=== PATIENT | male | born 1980 | race Caucasian/White ===

== ENCOUNTER 2021-08-30 09:08 | Outpatient (CLI) | payer OTHER, SELFPAY ==
--- NOTE | 2021-08-30 11:15 | NEURO_ITS ---
Impression: # Complains of paresthesia of lower extremities. # Normal nerve conduction study including motor and sensory nerves and F- waves. # Normal needle/EMG exam. # Clinical correlation recommended. Nerve Conduction Studies Anti Sensory Summary Table Stim Site NR Peak (ms) P-T Amp (?V) Site1 Site2 Delta-P (ms) Dist (cm) Chip (m/s) Left Sup Fibular Anti Sensory (Ant Lat Mall) 14 cm 3.8 13.5 14 cm Ant Lat Mall 3.8 16.0 42 Right Sup Fibular Anti Sensory (Ant Lat Mall) 14 cm 3.3 20.8 14 cm Ant Lat Mall 3.3 16.0 48 Left Sural Anti Sensory (Lat Mall) Calf 3.7 19.6 Calf Lat Mall 3.7 16.0 43 Right Sural Anti Sensory (Lat Mall) Calf 3.7 18.4 Calf Lat Mall 3.7 16.0 43 Motor Summary Table Stim Site NR Onset (ms) O-P Amp (mV) Site1 Site2 Delta-0 (ms) Dist (cm) Chip (m/s) Right Lateral Plantar Motor (ADM) Med Mall 4.5 4.8 Left Lateral Plantar Motor (AHB) Med Mall 4.7 5.5 Left Peroneal Motor (Vastus Med) Ankle 5.2 1.7 Popit Ankle 7.3 36.0 49 Popit 12.5 5.1 Right Peroneal Motor (Vastus Med) Ankle 4.7 5.2 Popit Ankle 7.6 37.0 49 Popit 12.3 4.0 Left Tibial Motor (Abd Whittington Brev) Ankle 4.2 5.8 Knee Ankle 8.5 40.0 47 Knee 12.7 5.4 Right Tibial Motor (Abd [place]itting[place] Brev) Ankle 4.2 4.7 Knee Ankle 9.5 41.0 43 Knee 13.7 5.5 F Wave Studies NR F-Lat (ms) L-R F-Lat (ms) Left Peroneal (Mrkrs) (EDB) 51.29 0.27 Right Peroneal (Mrkrs) (EDB) 51.56 0.27 Left Tibial (Mrkrs) (Abd Hallucis) 51.56 0.94 Right Tibial (Mrkrs) (Abd Hallucis) 52.50 0.94 EMG Side Muscle Nerve Root Ins Act Fibs Amp Dur Recrt Comment Right AntTibialis Dp Br Fibular L4-5 Nml Nml Nml Nml Nml Right Gastroc Tibial S1-2 Nml Nml Nml Nml Nml Right Fibularis Long Sup Br Fibular L5-S1 Nml Nml Nml Nml Nml Right Flex Dig Long Tibial L5-S2 Nml Nml Nml Nml Nml Right Ext Dig Brev Dp Br Fibular L5, S1 Nml Nml Nml Nml Nml Left AntTibialis Dp Br Fibular L4-5 Nml Nml Nml Nml Nml Left Gastroc Tibial S1-2 Nml Nml Nml Nml Nml Left Fibularis Long Sup Br Fibular L5-S1 Nml Nml Nml Nml Nml Left Flex Dig Long Tibial L5-S2 Nml Nml Nml Nml Nml Left Ext Dig Brev Dp Br Fibular L5, S1 Nml Nml Nml Nml Nml MTDD
== END 2021-08-30 09:09 | disposition home or self-care (01) ==
LOC: ANHNEURO 09:12
PROVIDERS: PCP Family Medicine; Visit Provider Family Medicine
DX: R20.2 Paresthesia of skin (principal)
CPT/HCPCS: 95886; 95911

== ENCOUNTER 2022-06-01 01:31 | Day surgery (SDC) | payer OTHER, SELFPAY ==
[2022-05-23 11:42] VITALS: BMI 29.5
[2022-06-01 12:19] VITALS: BP 161/107; PULSE 83; RESP 18; TEMP 36.2; O2SAT 100
[2022-06-01] MEDS: LACTATED RINGERS 1,000 ML 150 ML IV CONT (12:29)
--- NOTE | 2022-06-01 12:42 | PM.HPGS ---
History of Present Illness History of Present Illness Consent: Risks, benefits, and alternatives have been discussed and questions answered. Patient agrees to proceed with procedure. Chief complaint: epigastric pain Narrative: Kaleb Evans Jr. is a 41 year old male who has been dealing with a hiatal hernia for the past 4 years.? Originally this was diagnosed when he was having severe chest pain.? He had a CT scan at that time and also is investigated by Cardiology who found no cardiac problems.? Now his main symptom is that after meal he gets very uncomfortable he feels full easily and feels as though he is going to vomit.? He does not have dysphagia.? He has not lost weight in fact over the past 2 years has gained about 30 lb.? Review of Systems Review of Systems: All systems reviewed & are unremarkable except as noted in HPI and below PMFSH Surgical History Surgical History Hx of appendectomy Social History Social History Smoking status: Former smoker Tobacco type: cigarettes Alcohol intake: current Alcohol use details: 2-3 drinks monthly Substance use: never Substance use type: does not use Living arrangements: with family Spiritual care concerns: No Meds Home Medications and Allergies Home Medications Medication Instructions Recorded Confirmed Type No Home Medications 05/23/22 05/23/22 History Allergies Allergy/AdvReac Type Severity Reaction Status Date / Time aspirin Allergy Unknown Unknown Verified 06/01/22 12:18 Vital Signs Vital Signs - 24 hr 06/01/22 12:19 Temperature 36.2 C L Pulse Rate 83 Respiratory Rate 18 Blood Pressure 161/107 H Pulse Oximetry 100 Oxygen Delivery Room Air Exam Const: General: alert Orientation/consciousness: patient oriented x3 Resp: Auscultation: clear to auscultation bilaterally Cardio: Rhythm: regular rhythm GI: GI Palp: Yes Soft to palpation and No Tenderness to palpation present (GI) Neuro: General: patient oriented x3 Assessment and Plan Assessment and plan (1) GERD (gastroesophageal reflux disease): Code(s): K21.9 - Gastro-esophageal reflux disease without esophagitis Status: Acute Assessment and Plan: EGD with possible biopsy or dilatation or cautery.
--- NOTE | 2022-06-01 13:07 | SUR.PREOP ---
DR COFFEY MADE AWARE OF PT'S BLOOD PRESSURE 161/107, PT NERVOUS TO BE IN HOSPITAL, NO NEW ORDERS RECEIVED, PT RESTING ON STRETCHER WITH SPOUSE AT BEDSIDE.
--- NOTE | 2022-06-01 13:11 | WPDANESEPPF ---
Anes - Initial Pre Proc Eval Procedure: Operation Date: 06/01/22 13:30 Proposed Procedures p Esophagogastroduodenoscopy - Jerod Richey MD Date/Time: 06/01/22 13:11 Surgeon: Jerod Richey MD Pre Op Diagnosis: epigastric pain Patient Data Age: 41 Gender: M Height: 1.7 m Weight: 83.7 kg Last Vital Signs Temp 97.2 F L 06/01/22 12:19 Pulse 83 06/01/22 12:19 Resp 18 06/01/22 12:19 BP 161/107 H 06/01/22 12:19 Pulse Ox 100 06/01/22 12:19 O2 Del Method Room Air 06/01/22 12:19 Allergies Allergy/AdvReac Type Severity Reaction Status Date / Time aspirin Allergy Unknown Unknown Verified 06/01/22 12:18 Home Medications Medication Instructions Recorded Confirmed Type No Home Medications 05/23/22 05/23/22 History Patient hx anesthesia problems: none Family hx anesthesia problems: none Results Review: All pre-operative results and documents have been reviewed as part of the pre-operative evaluation. [facility] Surgical History Surgical History Hx of appendectomy Social History Social History Smoking status: Former smoker Tobacco type: cigarettes Alcohol intake: current Alcohol use details: 2-3 drinks monthly Substance use: never Substance use type: does not use Living arrangements: with family Spiritual care concerns: No Anes - Eval Final PreProcedure Day of Procedure 06/01/22 13:11 Patient weight: normal Heart: regular rate and rhythm Lungs: clear to auscultation Airway: Mallampati scale class II Neurological: alert and oriented Last oral intake: >/= 8 hours ASA classification: II Emergent: no Anesthetic plan: proceed Anesthesia type and monitoring: general GIVS and standard monitoring Results Review: All pre-operative results and documents have been reviewed as part of the pre-operative evaluation. Informed Consent: The patient's anesthetic plan and its attendant risks and benefits were discussed with the patient/family/POA. Questions were solicited and answers provided to the satisfaction of the patient/family/POA.
[2022-06-01 13:29] VITALS: BP 137/96; PULSE 81; RESP 16; O2SAT 98
[2022-06-01 13:39] VITALS: BP 135/88; PULSE 74; RESP 14; O2SAT 97
[2022-06-01 13:43] VITALS: BP 146/100; PULSE 71; RESP 14; O2SAT 98
== END 2022-06-01 13:47 | disposition home or self-care (01) ==
PROVIDERS: PCP Family Medicine; Visit Provider Internal Medicine Gastroenterology
PROC: 0DJ08ZZ Inspection of Upper Intestinal Tract, Via Natural or Artificial Opening Endoscopic (ICD-10-PCS; CPT 43235; principal; 2022-06-01 13:30)
DX: K21.9 Gastro-esophageal reflux disease without esophagitis (principal); Z87.891 Personal history of nicotine dependence
CPT/HCPCS: 43239; 87081; J2704; J7120

== ENCOUNTER 2023-08-08 06:20 | Observation (INO) | payer OTHER, SELFPAY ==
[2023-08-08] VITALS (46 sets, daily range): BP systolic 132–209; BP diastolic 20–129; PULSE 58–93; RESP 11–27; TEMP 35.8–37.6; O2SAT 93–100; BMI 29.3
--- NOTE | 2023-08-08 | ECHO_ITS ---
Patient Info Name: Kaleb Evans Age: 42 years : 1980 Gender: Male Ht: 68 in Wt: 185 lbs BSA: 2.03 m2 HR: 87 bpm BP: 157 / 118 mmHg Heart Rhythm: Sinus Rhythm Technical Quality: Fair Exam Date: 08/08/2023 1:43 PM Exam Location: Echo Lab Patient Status: Outpatient Admit Date: 08/08/2023 Staff Ordering Physician: Delphine Mota MD (daysi/melissa) Historic Interpreter: Sana Espinal RDCS Attending Provider: Rubin London MD Referring Physician: Nakul ARANA; Exam Type: CA echo dop color flow w con Study Info Indications - NSTEMI Complete two-dimensional, color flow and Doppler transthoracic echocardiogram is performed with contrast to opacify the left ventricle and to improve the deliniation of the left ventricle endocardial borders. Contrast/Agitated Saline Contrast/Ag. Saline: Definity Amount: 2.00 ml Administered By: Sana Espinal RDCS Existing IV Access: Yes IV Access Condition: patent with no signs of infiltration Summary 1. Left ventricular chamber dimension is normal. 2. There is mildly increased left ventricular wall thickness. 3. Left ventricular systolic function is normal, estimated at 50-55%. 4. The mid anterolateral wall is hypokinetic. 5. The left ventricular diastolic function is grade I diastolic dysfunction. 6. Right ventricular systolic function is normal. 7. No significant valvular disease. Left Ventricle The mid anterolateral wall is hypokinetic. Left ventricular chamber dimension is normal. Left ventricular systolic function is normal, estimated at 50-55%. There is mildly increased left ventricular wall thickness. The left ventricular diastolic function is grade I diastolic dysfunction. Right Ventricle Right ventricular chamber dimension is normal. Right ventricular systolic function is normal. Left Atria Left atrial chamber dimension is normal. Right Atria Right atrial chamber dimension is normal. Atrial Septum Intact interatrial septum visualized by color flow imaging. Aortic Valve The aortic valve is probable trileaflet. There is no aortic valve stenosis. There is no aortic valve regurgitation. There is mild aortic valve calcification. Pulmonic Valve The pulmonic valve is not well visualized. Mitral Valve There is trace mitral valve regurgitation. Tricuspid Valve There is trace tricuspid valve regurgitation. Pericardium/Pleural The pericardium appears epicardial fat pad. There is no pericardial effusion. Inferior Vena Cava Normal inferior vena cava with >50% collapse upon inspiration consistent with normal right atrial pressure, 3 mmHg. Aorta The aortic root size at the sinus of Valsalva is normal. Left Ventricular Outflow Tract Name Value Normal LVOT 2D LVOT Diameter 2.13 cm LVOT Doppler LVOT Peak Gradient 3 mmHg LVOT Mean Gradient 2 mmHg LVOT VTI 17.35 cm LVOT VTI/AV VTI Ratio 0.89 LVOT Stroke Volume 61.84 ml LVOT CO 4.11 l/min LVOT CI 2.03 L/min/m2 Pulmonic Valve
--- NOTE | ~2023-08-08 | XR_ITS ---
Clinical Indication: Chest pain PA and lateral views of the chest: Comparison: 08/21/2017 Findings: The lungs are clear, without evidence of focal consolidation or pleural effusion. Cardiome diastinal silhouette is within normal limits. Bones and soft tissues are unremarkable. Impression: Normal chest. Reviewed, dictated and finalized at location . Impression: Normal chest.
--- NOTE | 2023-08-08 06:37 | ECG_ITS ---
SEE SCANNED COPY FOR CONFIRMED REPORT. MTDD
[2023-08-08] MEDS: NITROGLYCERIN SL 0.4 MG TABLET SUBLINGUAL ×4 (06:42→15:32)
[2023-08-08 06:59] LABS: Basophils Absolute Auto 0.1 K/mm3 (0.0-0.1); Basophils Percent Auto 0.6 % (0.2-1.2); Eosinophils Absolute Auto 0.2 K/mm3 (0-0.3); Eosinophils Percent Auto 2.1 % (0-4.4); Hematocrit 44.5 % (42.0-52.0); Hemoglobin 15.5 g/dL (14.0-18.0); Immature Granulocyte Absolute 0.08 K/mm3 (0.00-0.031); Immature Granulocyte Percent A 0.8 % (0-0.5); Lymphocytes Percent Auto 19.1 % (18.3-44.2); Mean Corpuscular HGB Conc 34.8 g/dl (32-36); Mean Corpuscular Hemoglobin 27.2 pg (26-34); Mean Corpuscular Volume 78.2 fl (80-100); Mean Platelet Volume 9.8 fl (7.4-10.4); Monocytes Percent Auto 9.6 % (2.6-8.5); Neutrophils Absolute Auto 6.7 K/mm3 (1.3-6.7); Neutrophils Percent Auto 67.8 % (45.5-73.1); Platelet Count Result 287 k/mm3 (150-375); Red Blood Count 5.69 M/mm3 (4.6-6.20); Red Cell Distribution Width 12.7 % (11.5-14.5)
[2023-08-08 07:11] LABS: Alanine Aminotransferase 36 U/L (6-50); Albumin Level 4.8 g/dL (3.5-5.1); Alkaline Phosphatase 136 U/L (38-126); Anion Gap 8 mmol/L (4-12); Aspartate Amino Transferase 30 U/L (17-59); Bilirubin,Total 0.7 mg/dL (0.2-1.3); Blood Urea Nitrogen 9 mg/dL (9-20); Calcium 9.7 mg/dL (8.4-10.2); Carbon Dioxide 26 mmol/L (22-30); Chloride 99 mmol/L (98-107); Estimated CRCL calculation 112 ml/min; Estimated Glomerular Filt Rate > 60; Glucose 115 mg/dL (65-110); Lipase 111 U/L (23-300); Potassium 3.4 mmol/L (3.4-5.0); Sodium 133 mmol/L (137-145)
--- NOTE | 2023-08-08 07:12 | ECG_ITS ---
SEE SCANNED COPY FOR CONFIRMED REPORT. MTDD
--- NOTE | 2023-08-08 07:12 | ECG_ITS ---
SEE SCANNED COPY FOR CONFIRMED REPORT. MTDD
--- NOTE | 2023-08-08 07:13 | ECG_ITS ---
SEE SCANNED COPY FOR CONFIRMED REPORT MTDD
--- NOTE | 2023-08-08 07:17 | ED.CHESTPAIN ---
HPI - Chest Pain General Chief Complaint: Chest Pain Stated Complaint: bilateral arm pain, chest pain Time Seen by Provider: 08/08/23 07:05 History of Present Illness HPI narrative: patient is a 42-year-old male who presents ER with chest pain. Pressure in the center of his chest. Began at 5:30 a.m.. It is radiating down both arms and makes him feel numb and heavy. He has had similar some chest discomfort over the last 2 days. Reports increased stress as his recently from cancer 07/20/2023. Patient has no family history of heart disease or personal review disease history. He reports he is otherwise healthy other than having of a blood pressure. Denies illicit drug use. Related Data Home Medications Medication Instructions Recorded Confirmed No Home Medications 05/23/22 08/08/23 Allergies Allergy/AdvReac Type Severity Reaction Status Date / Time aspirin Allergy Unknown Unknown Verified 08/08/23 12:54 Review of Systems Review of Systems: All systems reviewed & are unremarkable except as noted in HPI and below Constitutional: Constitutional: Reports no additional constitutional complaints ENT: Reports system reviewed and no additional complaints, except as documented Cardiovascular: Cardiovascular: Reports chest pain, Denies rapid heart rate and Reports radiating jaw, neck or arm pain Respiratory: Respiratory: Reports no additional respiratory complaints Gastrointestinal: Gastrointestinal: Reports no additional gastrointestinal complaints Musculoskeletal: Musculoskeletal: Reports no additional musculoskeletal complaints [facility] Past Medical History Medical History (Updated 08/08/23 @ 18:08 by Magdaleno Stinson MD) Hypertension Surgical History Surgical History Hx of appendectomy Family History Family History Sibling Diabetes mellitus Sibling Diabetes mellitus Mother Hypertension Father Hypertension Social History Social History Smoking packs per day: 0.5 Smoking cigarettes per day: 10.0 Years smoked: 15 Smoking pack-years: 7.50 Smoking status: Former smoker Tobacco type: cigarettes Smoking end date: 04/08/15 Alcohol intake: current Drinks per week: 4 Alcohol use details: 2-3 drinks monthly Substance use: current Substance use type: marijuana Other substance usage details: Rarely Do You Feel Safe in your Home?: Yes Lack of Transportation: No Lack of Food: Never True Current Housing: I Have Housing Concerned About Future Housing: No Difficulty Paying Gas/Electric Bills: No Difficulty Paying for Meds: No Currently Unemployed: No Education: Decline to Answer Difficulty w/ Childcare or Family Care: No Living arrangements: with family Spiritual care concerns: No Exam Narrative: GENERAL: Well-appearing, well-nourished, and in no acute distress. HEAD: Normocephalic, atraumatic. ENT: Mucous membranes moist. NECK: Supple. CHEST: Clear to auscultation. No respiratory distress. HEART: Regular rate and rhythm. Normal peripheral pulses. ABDOMEN: Soft, nontender, nondistended. EXTREMITIES: Normal range of motion. No edema. SKIN: Warm, dry, no rash. NEURO: Alert and oriented x3. PSYCH: Normal mood and affect. Course Course Emergency Course: EKG with significant ST depression in the inferior leads as well as lateral leads. Multiple EKGs performed including a right-sided EKG. I have discussed the EKGs and patient presentation with Dr. Mota who has reviewed the EKGs. It is felt patient will need intervention but that this is not a ST elevation NV but weathered non ST elevation NV. It is also possible patient could have stress induced cardiomyopathy given recent life changes. Patient will be started on heparin and given aspirin. Vital Signs Vital signs: Vital
[2023-08-08] MEDS: ASPIRIN 81 MG CHEWABLE TABLET 324 MG PO (07:24)
--- NOTE | 2023-08-08 07:25 | PC.NURSE ---
Pt reports he was told when he was a kid that he had an allergy to aspirin. Pt is unsure of any reaction. MD Stinson discussed this with patient, and per MD Stinson, need to give aspirin. Pt okay with taking it, administered per JUN. Pt has call light in reach, instructed to let RN know immediately of any possible adverse reactions.
[2023-08-08 07:26] LABS: Partial Thromboplastin Time 32.5 Seconds (22.3-36.8)
[2023-08-08 07:28] LABS: Troponin I 0.117 ng/mL (0.000-0.034)
[2023-08-08 07:41] LABS: INR 1.1; Prothrombin Time 14.3 Seconds (11.1-14.7)
[2023-08-08] MEDS: HEPARIN SODIUM 5,000 UNITS/ML VIAL 4000 UNITS IV PUSH (08:13)
[2023-08-08] MEDS: HEPARIN SOD/D5W 100 UNITS/ML 25,000 UNITS/250 ML BAG 9 UNITS IV CONT (08:13)
[2023-08-08 09:11] LABS: Cholesterol 191 mg/dL (0-200); HDL Direct 36 mg/dL; Triglycerides 131 mg/dL (<150)
[2023-08-08 09:22] LABS: LDL Cholesterol Direct 125 mg/dL
--- NOTE | 2023-08-08 09:40 | ADMGEN ---
This patient, Kaleb Evans Jr., was admitted to IMU Room 210-01. Patient/family oriented to hospital policies and general routines including ID bracelet, bed and alarms, visiting hours, pain management, procedures, bathroom and other care routines, personal items, smoking policy, room service/diet, and visiting hours. Information on how to activate the Rapid Response Team has been discussed. Patient/Family are encouraged to report perceived risks to care and to ask questions if they do not understand what they are told or what they should do.
[2023-08-08 09:42] LABS: Thyroid Stimulating Hormone 0.784 uIU/mL (0.465-4.680)
[2023-08-08 09:45] LABS: Hemoglobin A1C 5.2 % (<5.7)
--- NOTE | 2023-08-08 10:01 | PM.CNCAR ---
Assessment and Plan Assessment and plan (1) NSTEMI (non-ST elevated myocardial infarction): Code(s): I21.4 - Non-ST elevation (NSTEMI) myocardial infarction Status: Acute Assessment and Plan: Given chest pain, elevated troponin, EKG findings, will treat as NSTEMI. Patient loaded with ASA in the ED and started on Heparin drip. Recommend cardiac catheterization. Discussed the procedure with the patient, including indication for procedure, procedure details, risks vs benefits, alternative management options, etc. Patient agreeable to proceed. Will plan for cardiac catheterization today. Keep patient NPO. Will start high-intensity statin. Check lipid panel, Hgb A1c, TSH level. Obtain echocardiogram. Further recommendations and plan pending results of the above workup. (2) GERD (gastroesophageal reflux disease): Code(s): K21.9 - Gastro-esophageal reflux disease without esophagitis Status: Acute Assessment and Plan: Not on any medications. Plan Recommendations and plan discussed with Hospitalist. History of Present Illness History of Present Illness Consult date/time: 08/08/23 10:01 Requesting physician: Magdaleno Stinson MD Consult reason: chest pain and Other Reason For Visit: NSTEMI Narrative: We are consulted for NSTEMI. This is a 42 year old male with former tobacco use (quit 7-8 years ago) and nonerosive reflux disease per EGD 05/2022 who presented with chest pain. Chest pain is diffuse across his chest, first began 5/1 AM around 6AM. Radiated to both arms. Lasted for a bit (cannot remember exactly how long) and then resolved. Did not recur until this morning. [place] more severe this morning, therefore, came to ER for further evaluation. On presentation, blood pressure 209/129mmHg. EKGs with sinus rhythm, incomplete right bundle branch block, ST depressions in the inferolateral leads. No STEMI. Patient given NTG with improvement in his chest pain and his blood pressure. Initial troponin is 0.117. CXR normal. Patient has ASA allergy listed on his chart. When asked about the allergy, patient states he was told as a kid to not take it but does not recall having any true allergies to it. He isn't sure why they told him to not take it as a kid. Patient was given ASA 324mg x 1 in the ED, and has tolerated it well thus far. Started on Heparin drip. Patient states he has not smoked in 7-8 years, and when he did smoke, it was only socially. Smoked for total of 10 years. Patient recently lost his from cancer. Review of Systems Review of Systems: All systems reviewed & are unremarkable except as noted in HPI and below (HPI) [facility] Surgical History Surgical History Hx of appendectomy Family History Family History Sibling Diabetes mellitus Sibling Diabetes mellitus Mother Hypertension Father Hypertension Social History Social History Smoking packs per day: 0.5 Smoking cigarettes per day: 10.0 Years smoked: 15 Smoking pack-years: 7.50 Smoking status: Former smoker Tobacco type: cigarettes Smoking end date: 04/08/15 Alcohol intake: current Drinks per week: 4 Alcohol use details: 2-3 drinks monthly Substance use: current Substance use type: marijuana Other substance usage details: Rarely Do You Feel Safe in your Home?: Yes Lack of Transportation: No Lack of Food: Never True Current Housing: I Have Housing Concerned About Future Housing: No Difficulty Paying Gas/Electric Bills: No Difficulty Paying for Meds: No Currently Unemployed: No Education: Decline to Answer Difficulty w/ Childcare or Family Care: No Living arrangements: with family Spiritual care concerns: No Meds Home Medications and Allergies Home Medications Medication Instructions Recorded Confirmed Type No Home Medicat
--- NOTE | 2023-08-08 11:33 | PM.IMHP ---
H&P: HPI History of Present Illness Date/Time: 08/08/23 11:33 Chief Complaint: midsternal chest pain Narrative: patient is a 42-year-old male former tobacco user and history of gastric reflux presented to hospital with chest pain. Chest pain is diffuse in nature radiating to both arms and has resolved by the time she came to the emergency room patient was also noted to have a high blood pressure in the emergency room of 200/180. EKG showed ST-T changes in inferior lead. The patient was given aspirin cardiology was consulted. Patient has no previous history of any coronary disease recently lost his from cancer patient has not smoked for more than 8 years. No sore throat nausea vomiting diarrhea hematemesis hemoptysis or dizziness Review of Systems Review of Systems: No fevers chills nausea vomiting. No double vision no blurry vision. No difficulty hearing or sinus complaints. No chest pain shortness of breath fever palpitation dizziness ankle swelling. No coughing wheezing chills. No nausea constipation diarrhea abdominal pain reflux. No urgency frequency of urination. No hematuria. No skin rash eczema. No anxiety depression difficulty sleeping. No bleeding gums enlarged glands. No muscle ache back pain joint stiffness. No loss of strength numbness headache tremor or loss of memory. [facility] Surgical History Surgical History Hx of appendectomy Family History Family History Sibling Diabetes mellitus Sibling Diabetes mellitus Mother Hypertension Father Hypertension Social History Social History Smoking packs per day: 0.5 Smoking cigarettes per day: 10.0 Years smoked: 15 Smoking pack-years: 7.50 Smoking status: Former smoker Tobacco type: cigarettes Smoking end date: 04/08/15 Alcohol intake: current Drinks per week: 4 Alcohol use details: 2-3 drinks monthly Substance use: current Substance use type: marijuana Other substance usage details: Rarely Do You Feel Safe in your Home?: Yes Lack of Transportation: No Lack of Food: Never True Current Housing: I Have Housing Concerned About Future Housing: No Difficulty Paying Gas/Electric Bills: No Difficulty Paying for Meds: No Currently Unemployed: No Education: Decline to Answer Difficulty w/ Childcare or Family Care: No Living arrangements: with family Spiritual care concerns: No Meds Home Medications and Allergies Home Medications Medication Instructions Recorded Confirmed Type No Home Medications 05/23/22 05/23/22 History Allergies Allergy/AdvReac Type Severity Reaction Status Date / Time aspirin Allergy Unknown Unknown Verified 06/01/22 12:18 Vital Signs Vital Signs - 24 hr 08/08/23 06:42 08/08/23 06:48 08/08/23 06:30 Temperature Pulse Rate 82 71 91 Respiratory Rate 18 18 Blood Pressure 189/20 H 153/114 H Pulse Oximetry 100 97 Oxygen Delivery 08/08/23 06:30 08/08/23 06:30 08/08/23 06:53 Temperature Pulse Rate 89 76 Respiratory Rate 19 18 Blood Pressure 209/129 H 138/104 H Pulse Oximetry 100 97 95 Oxygen Delivery Room Air 08/08/23 06:59 08/08/23 07:02 08/08/23 07:15 Temperature Pulse Rate 82 66 80 Respiratory Rate 27 H 14 16 Blood Pressure 132/97 H Pulse Oximetry 93 95 98 Oxygen Delivery 08/08/23 07:38 08/08/23 07:41 08/08/23 07:45 Temperature Pulse Rate 81 75 Respiratory Rate 17 15 Blood Pressure 143/102 H Pulse Oximetry 95 97 99 Oxygen Delivery 08/08/23 08:40 08/08/23 08:45 08/08/23 09:00 Temperature Pulse Rate 83 72 72 Respiratory Rate 25 H 14 19 Blood Pressure 136/105 H Pulse Oximetry 100 98 99 Oxygen Delivery 08/08/23 09:34 Temperature 36.2 C L Pulse Rate 82 Respiratory Rate 16 Blood Pressure 172/110 H Puls
--- NOTE | 2023-08-08 12:48 | WPDMODSED ---
Moderate Sedation Note-Pt Data Patient Data Diagnosis: NSTEMI Present Complaint: NSTEMI Procedure to be performed/Plan: Coronary angiography, left heart cath, +/- PCI Allergies Allergy/AdvReac Type Severity Reaction Status Date / Time aspirin Allergy Unknown Unknown Verified 06/01/22 12:18 Home Medications Medication Instructions Recorded Confirmed Type No Home Medications 05/23/22 05/23/22 History Current Medications: Active Medications Aspirin (Aspirin 81 Mg Enteric Tablet) 81 mg PO QAM COUNTS INCLUDE 234 BEDS AT THE [facility] Atorvastatin Calcium (Atorvastatin 40 Mg Tablet) 80 mg PO DAILY COUNTS INCLUDE 234 BEDS AT THE [facility] Sodium Chloride (Normal Saline Iv) 1,000 mls @ 125 mls/hr IV CONT .Q8H ONE Stop: 08/08/23 20:44 Losartan Potassium (Losartan Potassium 25 Mg Tablet) 25 mg PO DAILY COUNTS INCLUDE 234 BEDS AT THE [facility] Metoprolol Succinate (Metoprolol Succinate Ext Rel 50 Mg Tabcr) 50 mg PO QAM COUNTS INCLUDE 234 BEDS AT THE [facility] Morphine Sulfate (Morphine Sulfate (*Crx) 2 Mg/Ml Inj) 2 mg IV PUSH Q2H PRN PRN Reason: Pain Rated 7-10 Nitroglycerin (Nitroglycerin Sl 0.4 Mg Tablet) 0.4 mg SUBLINGUAL Q5MIN PRN PRN Reason: Chest Pain Last Admin: 08/08/23 06:53 Dose: 0.4 mg Nitroglycerin (Nitroglycerin Sl 0.4 Mg Tablet) 0.4 mg SUBLINGUAL Q5MIN PRN PRN Reason: Chest Pain Ondansetron HCl (Ondansetron Inj 4 Mg/2 Ml Vial) 4 mg IV PUSH Q4H PRN PRN Reason: Nausea Perflutren Lipid Microsphere (Perflutren Lipid Microspheres 1.5 Ml Vial Diluted To 10 Ml Total Volume) 0 ml IV PUSH ONCE PRN; Protocol PRN Reason: adequate visualization Stop: 08/11/23 09:10 Ticagrelor (Ticagrelor 90 Mg Tablet) 90 mg PO Q12HR COUNTS INCLUDE 234 BEDS AT THE [facility] Sedation/Anesthesia: No previous sedation/anesthesia problems (including family history). [facility] Surgical History Surgical History Hx of appendectomy Family History Family History Sibling Diabetes mellitus Sibling Diabetes mellitus Mother Hypertension Father Hypertension Social History Social History Smoking packs per day: 0.5 Smoking cigarettes per day: 10.0 Years smoked: 15 Smoking pack-years: 7.50 Smoking status: Former smoker Tobacco type: cigarettes Smoking end date: 04/08/15 Alcohol intake: current Drinks per week: 4 Alcohol use details: 2-3 drinks monthly Substance use: current Substance use type: marijuana Other substance usage details: Rarely Do You Feel Safe in your Home?: Yes Lack of Transportation: No Lack of Food: Never True Current Housing: I Have Housing Concerned About Future Housing: No Difficulty Paying Gas/Electric Bills: No Difficulty Paying for Meds: No Currently Unemployed: No Education: Decline to Answer Difficulty w/ Childcare or Family Care: No Living arrangements: with family Spiritual care concerns: No Mod Sed Physical Exam Physical Exam Pre Procedural Exam: Normal: Appearance, Lungs, Heart Rate, Heart Rhythm, Neuro Exam, Extremities and Skin Hours since solid foods: 12 Hours since liquid intake: 8 Mallampati Classification: class III Internal Medicine - PN: Obj Da Vital Signs Vital Signs: Vital Signs - 24 hr 08/08/23 06:42 08/08/23 06:48 08/08/23 06:30 Temperature Pulse Rate 82 71 91 Respiratory Rate 18 18 Blood Pressure 189/20 H 153/114 H Pulse Oximetry 100 97 Oxygen Delivery 08/08/23 06:30 08/08/23 06:30 08/08/23 06:53 Temperature Pulse Rate 89 76 Respiratory Rate 19 18 Blood Pressure 209/129 H 138/104 H Pulse Oximetry 100 97 95 Oxygen Delivery Room Air 08/08/23 06:59 08/08/23 07:02 08/08/23 07:15 Temperature Pulse Rate 82 66 80 Respiratory Rate 27 H 14 16 Blood Pressure 132/97 H Pulse Oximetry 93 95 98 Oxygen Delivery 08/08/23 07:38 08/08/23 07:41 08/08/23 07:45 Temperature Pulse Rate 81 75 Respiratory Rate 17 15 Blood Pressure 143/102 H Pulse Oximetry 95 97 99 Oxygen Delivery 08/08/23 08
--- NOTE | 2023-08-08 12:49 | WPDCARDPROC ---
Cardiac Cath Procedure Note Date of procedure:: 08/08/23 Performing physician:: CATHETERIZATION LABORATORY REPORT Procedure Date: 08/08/2023 Utility Systems Repairer Operator: Delphine Mota M.D., [facility]? Referring Physician: Delphine Mota M.D. ? Anesthesia: Versed and Fentanyl were ordered and given in my presence at 11:30, procedure ended at 12:40. Supervision of nurse monitored moderate sedation with Versed and Fentanyl was provided for 70 minutes. Total of Versed 1mg and Fentanyl 50mcg were administered by the Kennel Attendant RN Miriam Piedra. Pre-op Diagnosis: NSTEMI Post-op Diagnosis: 1. Acute complete occlusion of the mid Ramus (the infarct related artery) s/p successful IVUS-guided PCI with KALLIE x 1 (3.0mm x 26mm KALLIE). 2. Significant 70-80% stenosis in the mid LCX. Did not pursue PCI of this lesion to avoid high contrast load, will plan for staged intervention as an outpatient. 3. Elevated left ventricular end-diastolic pressure of 21mmHg Procedure(s): 1. Moderate sedation 2. Ultrasound-guided access of the right radial artery 3. Coronary angiography 4. Left heart cath 5. PCI of the Ramus with KALLIE x 1 6. IVUS of the Ramus Access Site: Right radial artery Brief History and Clinical Indications: Patient is a 42 year old male referred for [facility] for NSTEMI. All risks, benefits and alternatives to left heart catheterization with or without percutaneous coronary intervention was discussed at length with the patient. Risk of complications including but not limited to bleeding, infection, arrhythmia, stroke, worsening kidney function, blood loss, groin hematoma, limb loss, emergency coronary artery bypass grafting, and even were discussed with the patient and all questions were answered. The patient understood and wished to proceed. Time out called, patient name, date of , medical record number, allergies, procedure performed, identify Utility Systems Repairer Operator, patient and staff member concurred with accurate data, procedure carried on. Findings: LEFT HEART CATHETERIZATION FINDINGS: 1. Left main: The left main coronary artery is widely patent without any significant obstructive disease. Trifurcates into LCX, Ramus, and LAD. 2. Left anterior descending: The LAD and the diagonal branches have luminal irregularities without any significant obstructive angiographic disease. 3. Ramus: The proximal Ramus has luminal irregularities. The Ramus bifurcates into two branches. Just after the bifurcation, the Ramus branch is completely occluded. 4. Left circumflex: The left circumflex artery has a focal 70-80% stenosis in the mid portion. 5. Right coronary artery: The RCA has mild disease in the mid portion. Remainder of the RCA has luminal irregularities. No significant obstructive angiographic disease. The RCA is the dominant vessel. 6. Left ventricle: A. End-diastolic pressure 21 mmHg. B. LV gram deferred. C. No significant gradient across aortic valve on catheter pullback. Description of Procedure and PCI: Informed consent signed and placed in the chart. Patient transferred to research laboratory manager room. Prepped and draped in usual sterile fashion. 2% lidocaine injected subcutaneously in right wrist area. 22-gauge venipuncture catheter used to access the right radial artery under ultrasound guidance. 6-FR slender sheath placed in right radial artery. Nitroglycerine and Verapamil were given intraarterial through the sheath. Versacore wire advanced under fluoroscopy 5F Tig 4 diagnostic catheter engaged Left Main Coronary Artery. 5F FR 4 diagnostic catheter engaged Right Coronary Artery Multiple orthogonal angiogram obtained and reviewed Angiomax was used for anticoagulation. 6F CLS 3.0 guide catheter was used to intubate the left main. 0.014 [place] coronary wire was passed in to the distal Ramus The lesion was pre-dilated with a 2.0 mm x 15 mm balloon inflated to high NATHAN. Multiple balloon inflations performed. This restored flow into the distal vessel. I
[2023-08-08] MEDS: ATORVASTATIN 40 MG TABLET 80 MG PO (13:19)
--- NOTE | 2023-08-08 13:52 | ECG_ITS ---
SEE SCANNED COPY FOR CONFIRMED REPORT MTDD
[2023-08-08] MEDS: PERFLUTREN LIPID MICROSPHERES 1.5 ML VIAL DILUTED TO 10 ML TOTAL VOLUME IV PUSH (14:16)
[2023-08-08] MEDS: LOSARTAN POTASSIUM 25 MG TABLET PO (14:25)
[2023-08-08] MEDS: METOPROLOL SUCCINATE EXT REL 50 MG TABCR PO (14:25)
--- NOTE | 2023-08-08 14:43 | IVDEFINITY ---
Prior to administration of IV Definity the patient was educated on the risks and benefits of the imaging enhancing agent including potential adverse side effects. The patient verbalized understanding. Allergies were verified. No exclusion criteria were identified and at least one of the following inclusion criteria were met: 1) physician request, 2) patient technically difficult to image (per the [place] [employer] guidelines of two or more segments not discernable within the apical view), or 3) questionable left ventricular function. ?
--- NOTE | 2023-08-08 14:43 | IVDEFINITY ---
Prior to administration of IV Definity the patient was educated on the risks and benefits of the imaging enhancing agent including potential adverse side effects. The patient verbalized understanding. Allergies were verified. No exclusion criteria were identified and at least one of the following inclusion criteria were met: 1) physician request, 2) patient technically difficult to image (per the [place] [employer] Echocardi[employer] guidelines of two or more segments not discernable within the apical view), or 3) questionable left ventricular function. ?
[2023-08-08] MEDS: TICAGRELOR 90 MG TABLET PO (20:09)
[2023-08-08] MEDS: SODIUM CHLORIDE 0.9% IV 1,000 ML 125 ML IV CONT (20:10)
[2023-08-09] VITALS (12 sets, daily range): BP systolic 135–153; BP diastolic 88–109; PULSE 76–101; RESP 16–18; TEMP 36.1–36.6; O2SAT 94–97
[2023-08-09 04:25] LABS: Basophils Absolute Auto 0.1 K/mm3 (0.0-0.1); Basophils Percent Auto 0.4 % (0.2-1.2); Eosinophils Absolute Auto 0.2 K/mm3 (0-0.3); Hematocrit 44.1 % (42.0-52.0); Hemoglobin 14.8 g/dL (14.0-18.0); Immature Granulocyte Absolute 0.11 K/mm3 (0.00-0.031); Immature Granulocyte Percent A 0.6 % (0-0.5); Mean Corpuscular HGB Conc 33.6 g/dl (32-36); Mean Corpuscular Hemoglobin 26.9 pg (26-34); Mean Platelet Volume 9.8 fl (7.4-10.4); Monocytes Absolute Auto 1.9 K/mm3 (0.1-0.6); Monocytes Percent Auto 10.4 % (2.6-8.5); Neutrophils Absolute Auto 13.8 K/mm3 (1.3-6.7); Neutrophils Percent Auto 75.6 % (45.5-73.1); Platelet Count Result 300 k/mm3 (150-375); Red Blood Count 5.51 M/mm3 (4.6-6.20); Red Cell Distribution Width 12.8 % (11.5-14.5); White Blood Count 18.3 K/mm3 (4.5-10.0)
[2023-08-09] MEDS: METOPROLOL SUCCINATE EXT REL 50 MG TABCR PO (09:03)
[2023-08-09] MEDS: TICAGRELOR 90 MG TABLET PO (09:04)
[2023-08-09] MEDS: ATORVASTATIN 40 MG TABLET 80 MG PO (09:04)
[2023-08-09] MEDS: LOSARTAN POTASSIUM 25 MG TABLET PO (09:04)
[2023-08-09] MEDS: ASPIRIN 81 MG ENTERIC TABLET PO (09:04)
--- NOTE | 2023-08-09 09:23 | PM.PNCARD ---
Progress Note: A&P Assessment and Plan (1) NSTEMI (non-ST elevated myocardial infarction): Code(s): I21.4 - Non-ST elevation (NSTEMI) myocardial infarction Status: Acute Plan 42-year-old man with newly diagnosed coronary artery disease treat doing well following stenting of the ramus intermedius branch yesterday by Dr. Mota. He is a good candidate for discharge today. Stressed the importance of strict compliance with his medication especially his dual anti-platelet therapy. He will see Dr. Mota in the office in short interval for follow-up after which time stage PCI of his circumflex will be planned Moses Lemons MD [facility] Subjective Date/time seen: Date of service: 08/09/23 09:23 Interval history: Follow-up visit in this 42-year-old man with: Newly diagnosed coronary artery disease. Found to have non ST elevation MD due to occlusion of the ramus intermedius branch which was treated successfully with drug-eluting stent yesterday by Dr. Mota. Patient feels well and is asymptomatic this morning. He does have a significant non infarct related lesion of 70-80% in the circumflex. Staged PCI of this will be performed following discharge. He is ambulatory and does not have any complaints at this time. Exam Const: General: comfortable and no acute distress HENMT: Mouth: Yes moist mucous membranes Eyes: General: appearance normal, both eyes and all related structures Sclera: sclerae normal Neck: Neck: supple Resp: Effort & Inspection: normal respiratory effort Cardio: Rate: regular rate Rhythm: regular rhythm Heart sounds: no murmurs Skin: General skin exam: normal color Neuro: Speech: normal speech Psych: Mental Status: mental status grossly normal Affect: normal affect Objective Data Vital Signs Vital Signs: Vital Signs - 24 hr 08/08/23 09:34 08/08/23 13:10 08/08/23 13:30 Temperature 36.2 C L 36.3 C L Pulse Rate 82 72 69 Respiratory Rate 16 12 19 Blood Pressure 172/110 H 154/106 H 158/116 H Pulse Oximetry 99 97 98 Oxygen Delivery Room Air Room Air 08/08/23 13:15 08/08/23 13:45 08/08/23 14:00 Temperature Pulse Rate 76 70 74 Respiratory Rate 16 17 15 Blood Pressure 154/109 H 169/112 H 157/118 H Pulse Oximetry 98 99 99 Oxygen Delivery Room Air Room Air Room Air 08/08/23 14:25 08/08/23 14:15 08/08/23 15:00 Temperature Pulse Rate 87 74 88 Respiratory Rate 11 L 16 Blood Pressure 167/121 H 160/119 H Pulse Oximetry 99 99 Oxygen Delivery Room Air Room Air 08/08/23 15:15 08/08/23 14:30 08/08/23 14:45 Temperature Pulse Rate 93 90 88 Respiratory Rate 12 20 16 Blood Pressure 156/114 H 186/125 H 181/125 H Pulse Oximetry 99 100 99 Oxygen Delivery Room Air Room Air Room Air 08/08/23 15:30 08/08/23 16:00 08/08/23 15:45 Temperature Pulse Rate 90 75 81 Respiratory Rate 16 20 19 Blood Pressure 138/84 141/93 H 139/87 Pulse Oximetry 97 99 98 Oxygen Delivery Room Air Room Air Room Air 08/08/23 16:15 08/08/23 16:30 08/08/23 12:00 Temperature Pulse Rate 73 75 75 Respiratory Rate 16 18 Blood Pressure 139/98 H 141/95 H Pulse Oximetry 99 99 Oxygen Delivery Room Air Room Air 08/08/23 12:00 08/08/23 16:45 08/08/23 17:00 Temperature Pulse Rate 75 75 85 Respiratory Rate 18 20 19 Blood Pressure 140/99 H 139/103 H Pulse Oximetry 99 99 98 Oxygen Delivery Room Air Room Air Room Air 08/08/23 17:15 08/08/23 19:14 08/08/23 17:30 Temperature 35.8 C L Pulse Rate 79 84 84 Respiratory Rate 20 16 20 Blood Pressure 149/97 H 141/93 H 141/90 H Pulse Oximetry 98 97 97 Oxygen Delivery Room Air Room Air 08/08/23 17:45 08/08/23 18:00 08/08/23 18:15 Temperature Pulse Rate 85 84 84 Respiratory Rate 19 19 20 Blood Pressure 132/91 H 137/90 138/97 H Pulse Oximetry 97 97 97 Oxygen Delivery Room Air Room Air Room Air 08/08/23 18:30 08/08/23 18:45 08/08/23 19:30 Temperature 36.4 C Pulse Rate 84 83 86 Respiratory Rate 21 H 16 15
[2023-08-09 09:57] LABS: Hemoglobin 14.5 g/dL (14.0-18.0); Mean Corpuscular Hemoglobin 26.9 pg (26-34); Mean Corpuscular Volume 81.5 fl (80-100); Mean Platelet Volume 9.9 fl (7.4-10.4); Platelet Count Result 315 k/mm3 (150-375); White Blood Count 16.4 K/mm3 (4.5-10.0)
[2023-08-09 10:07] LABS: Alanine Aminotransferase 40 U/L (6-50); Albumin Level 4.3 g/dL (3.5-5.1); Alkaline Phosphatase 98 U/L (38-126); Anion Gap 6 mmol/L (4-12); Aspartate Amino Transferase 87 U/L (17-59); Blood Urea Nitrogen 10 mg/dL (9-20); Calcium 9.7 mg/dL (8.4-10.2); Carbon Dioxide 28 mmol/L (22-30); Chloride 101 mmol/L (98-107); Estimated CRCL calculation 96 ml/min; Estimated Glomerular Filt Rate > 60; Glucose 108 mg/dL (65-110); Magnesium 2.1 mg/dL (1.6-2.3); Potassium 3.9 mmol/L (3.4-5.0); Sodium 135 mmol/L (137-145)
[2023-08-09] MEDS: ACETAMINOPHEN 325 MG TABLET 650 MG PO (10:25)
--- NOTE | 2023-08-09 11:52 | PM.DS ---
DS: Admitting Diagnosis Discharge Date 08/09/2023 Admitting Diagnosis NSTEMI DS: Discharge Diagnosis Discharge Diagnosis (1) NSTEMI (non-ST elevated myocardial infarction): Code(s): I21.4 - Non-ST elevation (NSTEMI) myocardial infarction Status: Acute (2) GERD (gastroesophageal reflux disease): Code(s): K21.9 - Gastro-esophageal reflux disease without esophagitis Status: Acute Plan NSTEMI -patient's symptoms are typical chest pain with worse on exertion, concerning for ACS -elevated troponins , will continue trending troponins -starting heparin -continue telemetry, EKG showed may be early repolarization -cardiology consulted -prn Nitroglycerin, oxygen, morphine, aspirin -checking lipid panel and hemoglobin A1c -counseled on smoking cessation -IV fluids: Continue maintainence normal saline for now the patient is going to go for a coronary angiogram at discussed with Cardiology DVT prophylaxis. heparin GI prophylaxis. All records reviewed Discussed plan of care with the nursing staff and with the patient in detail. Answered all questions and concerns from the patient. All labs have been reviewed. Code status updated Discharged: Patient discharged to home will follow-up outpatient with cardiology for Secondary intervention of the mid LCX DS: Summary Hospital Course Reason for hospitalization: NSTEMI Hospital Course: Admission: Chief Complaint: ?midsternal chest pain Narrative: Patient was a 42-year-old male former tobacco user and history of gastric reflux presented to hospital with chest pain.? Chest pain is diffuse in nature radiating to both arms and has resolved by the time she came to the emergency room patient was also noted to have a high blood pressure in the emergency room of 200/180.? EKG showed? ST-T changes in inferior lead.? The patient was given aspirin cardiology was consulted.? Patient has no previous history of any coronary disease recently lost his from cancer patient has not smoked for more than 8 years.? No sore throat nausea vomiting diarrhea hematemesis hemoptysis or dizziness. Patient was suspicious of ACS and taken to cardiac catheterization Procedural findings Post-op Diagnosis: 1. Acute complete occlusion of the mid Ramus (the infarct related artery) s/p successful IVUS-guided PCI with KALLIE x 1 (3.0mm x 26mm KALLIE). 2. Significant 70-80% stenosis in the mid LCX. Did not pursue PCI of this lesion to avoid high contrast load, will plan for staged intervention as an outpatient. 3. Elevated left ventricular end-diastolic pressure of 21mmHg. Patient tolerated procedure well but will need secondary intervention to stent the mid LCX, cardiology to schedule outpatient. Assessed patient RT radial site prior to discharge, clean dry, no bleeding with no hematoma. Patient was discharged to home, BP stable. Status at Discharge Functional status at discharge: independent ambulation Time Spent with Patient Time attestation: Total time spent providing and/or coordinating discharge services: Time spent: Less than 30 minutes Exam Narrative: GENERAL: Well appearing, no acute distress. HEAD: Normocephalic, atraumatic. NECK: Supple. No adenopathy, no masses. RESPIRATORY: respirations nonlabored. , no rales, wheezing. CARDIOVASCULAR: Regular rate and rhythm without murmurs, . Peripheral pulses 2+ and equal bilaterally. ABDOMINAL: Soft, nontender, nondistended, no hepatosplenomegaly. Normoactive BS. MUSCULOSKELETAL: no Epigastric and no hypochondrial tenderness SKIN: Warm, dry, NEURO: A&O X3. Moves all extremities DS: Data Data Completed and Pending Labs on day of discharge: Labs from last 24 hours 08/09/23 08/09/23 09:48 03:44 WBC 16.4 H 18.3 H RBC 5.40 5.51 Hgb 14.5 14.8 Hct 44.0 44.1 MCV 81.5 80.0 MCH 26.9 26.9 MCHC 33.0 33.6 RDW 13.0 12.8 Plt Count 315 300 MPV 9.9 9.8 Immature Gran % (Auto) 0.6 H Neut %
--- NOTE | 2023-08-09 12:11 | PC.NURSE ---
Report given to Ericka Rinaldi NP on the pts b/p trend with no new interventions. The pt is denying distress at this time.
--- NOTE | 2023-08-09 14:02 | PC.NURSE ---
[address] No Hematoma noted. No bleeding noted. Education given on when to take the Radial immobilizer off per bedside shift report. The pt displays understanding through verbal demonstration. No manifestations of distress noted at the time of d/c from the campus. Th pt was escorted to private family vehicle at 1349 per IMU Staff. No manifestations of distress noted at the time of discharge. All belongings removed per pt at the time of d/c.
== END 2023-08-09 13:50 | disposition home or self-care (01) ==
LOC: ANHED 08:02 → ANHIMU 08:44
PROVIDERS: Emergency Medicine; Internal Medicine; Nurse Practitioner Family; Admitting Provider Internal Medicine; Emergency Provider Emergency Medicine; Visit Provider Internal Medicine
PROC: 4A023N7 Measurement of Cardiac Sampling and Pressure, Left Heart, Percutaneous Approach (ICD-10-PCS; CPT 93452; principal; 2023-08-08 11:00)
PROC: 027034Z Dilation of Coronary Artery, One Artery with Drug-eluting Intraluminal Device, Percutaneous Approach (ICD-10-PCS; CPT 92928; 2023-08-08 11:00)
DX: I21.4 Non-ST elevation (NSTEMI) myocardial infarction (principal); I25.10 Atherosclerotic heart disease of native coronary artery without angina pectoris; I10 Essential (primary) hypertension; K21.9 Gastro-esophageal reflux disease without esophagitis; Z87.891 Personal history of nicotine dependence; F12.90 Cannabis use, unspecified, uncomplicated
CPT/HCPCS: 36415; 71046; 80053; 80061; 83036; 83690; 83735; 84443; 84484; 85025; 85027; 85610; 85730; 92978; 93005; 93458; 96374; 96375; 99285; A9270; C1725; C1753; C1769; C1874; C1887; C1894; C8929; C9600; G0378; J0583; J1644; J2250; J2305; J3010; J7030; J7040; Q9957

== ENCOUNTER 2023-08-14 08:34 | Emergency (ER) | payer OTHER, SELFPAY ==
--- NOTE | ~2023-08-14 | US_ITS ---
EXAMINATION: US venous doppler UE RT DATE: 08/14/2023 11:01 INDICATION: Right upper limb pain. TECHNIQUE: Grayscale ultrasound images without and with compression and Doppler ultrasound images of the right upper extremity veins were obtained. COMPARISON: None. FINDINGS: The visualized portions of the right internal jugular vein, subclavian vein, axillary vein, brachial veins, basilic vein, cephalic vein, radial vein, and ulnar vein are patent. IMPRESSION: 1. No deep venous thrombosis. Reviewed, dictated and finalized at location A.
[2023-08-14 08:38] VITALS: BP 138/98; PULSE 81; RESP 20; TEMP 36.6; O2SAT 100
[2023-08-14 08:43] VITALS: RESP 20
--- NOTE | 2023-08-14 09:00 | ED.GENADULT ---
HPI - General Adult General Chief complaint: Recheck/Abnormal Lab/Rx Stated complaint: post cath arm issue Time Seen by Provider: 08/14/23 08:49 History of Present Illness HPI narrative: 42-year-old male recent history of cardiac catheterization is per Dr. Mota presents to the emergency room for evaluation of ecchymosis to his right forearm. Patient states he recently had a cardiac catheterization through his right radial artery 6 days ago. Patient developed some bruising which began to improve. States he woke up this morning with murmur. Denies any numbness or tingling in his hands or fingers. Denies any loss of strength. Denies any shortness of breath chest pain Related Data Home Medications Medication Instructions Recorded Confirmed No Home Medications 05/23/22 08/08/23 Allergies Allergy/AdvReac Type Severity Reaction Status Date / Time No Known Allergies Allergy Verified 08/14/23 08:45 Review of Systems Review of Systems: ROS unremarkable except for noted in HPI PMFSH Past Medical History Medical History Hypertension Surgical History Surgical History Hx of appendectomy Family History Family History Sibling Diabetes mellitus Sibling Diabetes mellitus Mother Hypertension Father Hypertension Social History Social History Smoking packs per day: 0.5 Smoking cigarettes per day: 10.0 Years smoked: 15 Smoking pack-years: 7.50 Smoking status: Former smoker Tobacco type: cigarettes Smoking end date: 04/08/15 Alcohol intake: current Drinks per week: 4 Alcohol use details: 2-3 drinks monthly Substance use: current Substance use type: marijuana Other substance usage details: Rarely Do You Feel Safe in your Home?: Yes Lack of Transportation: No Lack of Food: Never True Current Housing: I Have Housing Concerned About Future Housing: No Difficulty Paying Gas/Electric Bills: No Difficulty Paying for Meds: No Currently Unemployed: No Education: Decline to Answer Difficulty w/ Childcare or Family Care: No Living arrangements: with family Spiritual care concerns: No Exam Narrative: GENERAL: Well-appearing, well-nourished, no physical limitations, and in no acute distress. HEAD: Normocephalic, atraumatic. EYES: Conjunctivae normal, PERRLA and EOMI. CHEST: Clear to auscultation. No respiratory distress. No wheezes rales or rhonchi. No tenderness. HEART: Regular rate and rhythm. No murmur heard. Normal peripheral pulses. EXTREMITIES: Normal range of motion. No edema. No clubbing or cyanosis SKIN: RT forearm: Ecchymosis in various stages of healing noted to anterior forearm NEURO: No focal deficits. Alert and oriented x3. MAEW. CN's II-XI intact bilaterally, normal gait PSYCH: Cooperative. Normal mood and affect. Course Vital Signs Vital signs: Vital Signs Temperature 36.6 C 08/14/23 08:38 Pulse Rate 81 08/14/23 08:38 Respiratory Rate 20 08/14/23 08:38 Blood Pressure 138/98 H 08/14/23 08:38 Pulse Oximetry 100 08/14/23 08:38 Oxygen Delivery Room Air 08/14/23 08:38 Temperature 36.6 C 08/14/23 08:38 Pulse Rate 75 08/14/23 10:49 Respiratory Rate 14 08/14/23 10:49 Blood Pressure 126/91 H 08/14/23 10:49 Pulse Oximetry 100 08/14/23 10:49 Oxygen Delivery Room Air 08/14/23 08:38 Medical Decision Making Vital Signs Vital Signs: Vital Signs Temperature 36.6 C 08/14/23 08:38 Pulse Rate 81 08/14/23 08:38 Respiratory Rate 20 08/14/23 08:38 Blood Pressure 138/98 H 08/14/23 08:38 Pulse Oximetry 100 08/14/23 08:38 Oxygen Delivery Room Air 08/14/23 08:38 Temperature 36.6 C 08/14/23 08:38 Pulse Rate 75 08/14/23 10:49 Respiratory Rate 14
[2023-08-14 09:04] LABS: Basophils Percent Auto 0.3 % (0.2-1.2); Eosinophils Absolute Auto 0.2 K/mm3 (0-0.3); Eosinophils Percent Auto 1.5 % (0-4.4); Hematocrit 41.5 % (42.0-52.0); Hemoglobin 13.9 g/dL (14.0-18.0); Immature Granulocyte Absolute 0.11 K/mm3 (0.00-0.031); Immature Granulocyte Percent A 0.8 % (0-0.5); Lymphocytes Absolute Auto 1.75 K/mm3 (0.9-3.2); Lymphocytes Percent Auto 13.2 % (18.3-44.2); Mean Corpuscular HGB Conc 33.5 g/dl (32-36); Mean Corpuscular Hemoglobin 27.1 pg (26-34); Mean Corpuscular Volume 80.9 fl (80-100); Mean Platelet Volume 9.6 fl (7.4-10.4); Monocytes Absolute Auto 1.4 K/mm3 (0.1-0.6); Monocytes Percent Auto 10.6 % (2.6-8.5); Neutrophils Absolute Auto 9.7 K/mm3 (1.3-6.7); Neutrophils Percent Auto 73.6 % (45.5-73.1); Platelet Count Result 306 k/mm3 (150-375); Red Blood Count 5.13 M/mm3 (4.6-6.20); Red Cell Distribution Width 12.7 % (11.5-14.5); White Blood Count 13.2 K/mm3 (4.5-10.0)
[2023-08-14 09:15] LABS: Alanine Aminotransferase 37 U/L (6-50); Albumin Level 4.8 g/dL (3.5-5.1); Alkaline Phosphatase 109 U/L (38-126); Anion Gap 10 mmol/L (4-12); Aspartate Amino Transferase 29 U/L (17-59); Bilirubin,Total 0.8 mg/dL (0.2-1.3); Blood Urea Nitrogen 20 mg/dL (9-20); Calcium 9.4 mg/dL (8.4-10.2); Carbon Dioxide 25 mmol/L (22-30); Chloride 100 mmol/L (98-107); Estimated CRCL calculation 86 ml/min; Estimated Glomerular Filt Rate > 60; Glucose 82 mg/dL (65-110); Potassium 4.8 mmol/L (3.4-5.0); Sodium 135 mmol/L (137-145)
[2023-08-14 09:35] LABS: Prothrombin Time 13.9 Seconds (11.1-14.7)
[2023-08-14 09:36] LABS: Partial Thromboplastin Time 34.2 Seconds (22.3-36.8)
[2023-08-14 10:49] VITALS: BP 126/91; PULSE 75; RESP 14; O2SAT 100
== END 2023-08-14 11:32 | disposition home or self-care (01) ==
PROVIDERS: Emergency Medicine; Emergency Provider Nurse Practitioner Family
DX: L76.22 Postprocedural hemorrhage of skin and subcutaneous tissue following other procedure (principal); I10 Essential (primary) hypertension; Z87.891 Personal history of nicotine dependence; Z79.82 Long term (current) use of aspirin; Y84.0 Cardiac catheterization as the cause of abnormal reaction of the patient, or of later complication, without mention of misadventure at the time of the procedure
CPT/HCPCS: 36415; 80053; 85025; 85610; 85730; 93971; 99284

== ENCOUNTER 2023-08-16 18:34 | Emergency (ER) | payer OTHER, SELFPAY ==
[2023-08-16 19:08] VITALS: BP 147/98; PULSE 81; RESP 20; TEMP 36.1; O2SAT 99
[2023-08-16 21:46] VITALS: BP 147/78; PULSE 85; RESP 18; O2SAT 98
--- NOTE | 2023-08-17 03:17 | ED.WOUNDLAC ---
HPI - Wound/Laceration General Chief Complaint: Wound/Laceration Stated Complaint: ABD wound Time Seen by Provider: 08/16/23 21:07 History of Present Illness HPI narrative: Patient fell and landed on his right abdomen while trying to fix a car(?), he is on Brilinta and aspirin and now bruises very easily and he did have a bruise develop on his abdominal wall. No abdominal pain. No lightheadedness. Related Data Home Medications Medication Instructions Recorded Confirmed No Home Medications 05/23/22 08/08/23 Allergies Allergy/AdvReac Type Severity Reaction Status Date / Time No Known Allergies Allergy Verified 08/16/23 19:08 Review of Systems Review of Systems: All systems reviewed & are unremarkable except as noted in HPI and below PMFSH Past Medical History Medical History Hypertension Surgical History Surgical History Hx of appendectomy Family History Family History Sibling Diabetes mellitus Sibling Diabetes mellitus Mother Hypertension Father Hypertension Social History Social History Smoking packs per day: 0.5 Smoking cigarettes per day: 10.0 Years smoked: 15 Smoking pack-years: 7.50 Smoking status: Former smoker Tobacco type: cigarettes Smoking end date: 04/08/15 Alcohol intake: current Drinks per week: 4 Alcohol use details: 2-3 drinks monthly Substance use: current Substance use type: marijuana Other substance usage details: Rarely Do You Feel Safe in your Home?: Yes Lack of Transportation: No Lack of Food: Never True Current Housing: I Have Housing Concerned About Future Housing: No Difficulty Paying Gas/Electric Bills: No Difficulty Paying for Meds: No Currently Unemployed: No Education: Decline to Answer Difficulty w/ Childcare or Family Care: No Living arrangements: with family Spiritual care concerns: No Exam Narrative: EXAMINATION OF ORGAN SYSTEMS/BODY AREAS: Constitutional: Vital signs per nursing GENERAL:[No acute distress, non-toxic appearing.] HEAD: Normal with no signs of head trauma. EYES: EOMI, conjunctiva normal ENT: Hearing grossly intact LUNGS: Nonlabored breathing. HEART: [Regular rate and rhythm] ABD: [Soft], non [tender to palpation], there is a 6x3cm area of ecchymosis/induration EXT: Normal range of motion SKIN: Bruising right abdominal wall NEURO: [Alert and oriented x 3. No gross focal sensory or strength deficits.] PSYCH: Normal affect Course Vital Signs Vital signs: Vital Signs Temperature 97.0 F L 08/16/23 19:08 Pulse Rate 81 08/16/23 19:08 Respiratory Rate 20 08/16/23 19:08 Blood Pressure 147/98 H 08/16/23 19:08 Pulse Oximetry 99 08/16/23 19:08 Oxygen Delivery Room Air 08/16/23 19:08 Temperature 97.0 F L 08/16/23 19:08 Pulse Rate 85 08/16/23 21:46 Respiratory Rate 18 08/16/23 21:46 Blood Pressure 147/78 H 08/16/23 21:46 Pulse Oximetry 98 08/16/23 21:46 Oxygen Delivery Room Air 08/16/23 19:08 MDM - Wound/Laceration MDM Narrative Medical decision making narrative: Patient presents after abdominal wall trauma, he is well-appearing, denies any severe abdominal pain, he does have bruising to the abdominal wall, otherwise the abdomen is soft nontender, I have very low concern for intra-abdominal bleeding given the benign exam but I did perform a bedside ultrasound, I did see area of superficial thickening over area of bruising on the ultrasound but did not see any fluid collection or hematoma, no signs of internal bleeding. The patient told me that a hours since the injury has not seen any worsening of the swelling or bruising, given this I a.m. reassured that he is not having any active and I do feel he is stable for dischar
== END 2023-08-16 21:48 | disposition home or self-care (01) ==
LOC: ANHED 21:32
PROVIDERS: Emergency Provider Emergency Medicine
DX: S30.1XXA Contusion of abdominal wall, initial encounter (principal); I10 Essential (primary) hypertension; Z87.891 Personal history of nicotine dependence; Z79.82 Long term (current) use of aspirin; Z79.02 Long term (current) use of antithrombotics/antiplatelets; W19.XXXA Unspecified fall, initial encounter
CPT/HCPCS: 99282

== ENCOUNTER 2023-10-03 01:32 | Day surgery (SDC) | payer OTHER, SELFPAY ==
[2023-10-02 10:15] VITALS: BMI 28.3
[2023-10-03] VITALS (11 sets, daily range): BP systolic 98–140; BP diastolic 64–85; PULSE 57–81; RESP 12–19; TEMP 36.1; O2SAT 95–98; BMI 26.4
[2023-10-03 07:44] LABS: Basophils Percent Auto 0.4 % (0.2-1.2); Eosinophils Absolute Auto 0.2 K/mm3 (0-0.3); Eosinophils Percent Auto 1.6 % (0-4.4); Hematocrit 39.4 % (42.0-52.0); Hemoglobin 13.4 g/dL (14.0-18.0); Immature Granulocyte Absolute 0.03 K/mm3 (0.00-0.031); Immature Granulocyte Percent A 0.3 % (0-0.5); Lymphocytes Absolute Auto 1.98 K/mm3 (0.9-3.2); Lymphocytes Percent Auto 21.5 % (18.3-44.2); Mean Corpuscular Hemoglobin 27.5 pg (26-34); Mean Corpuscular Volume 80.9 fl (80-100); Mean Platelet Volume 9.9 fl (7.4-10.4); Monocytes Absolute Auto 0.7 K/mm3 (0.1-0.6); Neutrophils Absolute Auto 6.3 K/mm3 (1.3-6.7); Neutrophils Percent Auto 68.2 % (45.5-73.1); Platelet Count Result 284 k/mm3 (150-375); Red Blood Count 4.87 M/mm3 (4.6-6.20); Red Cell Distribution Width 13.3 % (11.5-14.5); White Blood Count 9.2 K/mm3 (4.5-10.0)
[2023-10-03 07:55] LABS: Anion Gap 8 mmol/L (4-12); Blood Urea Nitrogen 16 mg/dL (9-20); Calcium 9.1 mg/dL (8.4-10.2); Carbon Dioxide 25 mmol/L (22-30); Chloride 103 mmol/L (98-107); Estimated CRCL calculation 99 ml/min; Estimated Glomerular Filt Rate > 60; Glucose 100 mg/dL (65-110); Potassium 4.1 mmol/L (3.4-5.0); Sodium 136 mmol/L (137-145)
--- NOTE | 2023-10-03 08:51 | WPDHPUPDATE1 ---
History and Physical Update Update Date/Time: 10/03/23 08:51 History and Physical has been reviewed, including an updated exam of the patient. There are NO changes in the patient's condition. Risks, benefits, and alternatives have been discussed and questions answered. Patient agrees to proceed with procedure.
--- NOTE | 2023-10-03 08:51 | WPDMODSED ---
Moderate Sedation Note-Pt Data Patient Data Diagnosis: Coronary artery disease Present Complaint: Coronary artery disease Procedure to be performed/Plan: Selective coronary angiography + PCI Allergies Allergy/AdvReac Type Severity Reaction Status Date / Time bee venom protein (honey bee) AdvReac Anaphylaxis Verified 10/03/23 07:37 Home Medications Medication Instructions Recorded Confirmed Type No Home Medications 05/23/22 08/08/23 History aspirin 81 mg tablet,delayed 81 mg PO QAM #30 tabs 08/09/23 10/02/23 Rx release atorvastatin 40 mg tablet 80 mg PO DAILY #60 tabs 08/09/23 10/02/23 Rx losartan 25 mg tablet 25 mg PO DAILY #30 tabs 08/09/23 10/02/23 Rx metoprolol succinate 50 mg 50 mg PO QAM #30 tabs 08/09/23 10/02/23 Rx tablet,extended release 24 hr ticagrelor 90 mg tablet (Brilinta) 90 mg PO Q12HR #60 tabs 08/09/23 10/02/23 Rx Current Medications: Active Medications Sodium Chloride (Normal Saline Iv) 500 mls @ 100 mls/hr IV CONT .Q5H COOPER Sedation/Anesthesia: No previous sedation/anesthesia problems (including family history). [facility] Past Medical History Medical History Hypertension Surgical History Surgical History Hx of appendectomy Family History Family History Sibling Diabetes mellitus Sibling Diabetes mellitus Mother Hypertension Father Hypertension Social History Social History Smoking packs per day: 0.5 Smoking cigarettes per day: 10.0 Years smoked: 15 Smoking pack-years: 7.50 Smoking status: Former smoker Tobacco type: cigarettes Smoking end date: 04/08/15 Alcohol intake: current Drinks per week: 2 Alcohol use details: beer Substance use: never Substance use type: does not use Other substance usage details: Rarely Do You Feel Safe in your Home?: Yes Lack of Transportation: No Lack of Food: Never True Current Housing: I Have Housing Concerned About Future Housing: No Difficulty Paying Gas/Electric Bills: No Difficulty Paying for Meds: No Currently Unemployed: No Education: Decline to Answer Difficulty w/ Childcare or Family Care: No Living arrangements: with family Spiritual care concerns: No Mod Sed Physical Exam Physical Exam Pre Procedural Exam: Normal: Appearance, Heart Rate, Heart Rhythm, Neuro Exam, Abdomen, Extremities and Skin Hours since solid foods: 12 Hours since liquid intake: 8 Mallampati Classification: class III Internal Medicine - PN: Obj Da Vital Signs Vital Signs: Vital Signs - 24 hr 10/03/23 07:22 Temperature 36.1 C L Pulse Rate 62 Respiratory Rate 12 Blood Pressure 130/85 Pulse Oximetry 97 Oxygen Delivery Room Air Meds/Results Medications: Active Medications Generic Name Dose Route Start Last Admin Trade Name Freq PRN Reason Stop Dose Admin Sodium Chloride 500 mls @ 100 mls/hr 10/03/23 07:00 Normal Saline Iv IV CONT .Q5H COOPER Labs 10/03/23 07:29 10/03/23 07:29 Labs: Laboratory Results - last 24 hr 10/03/23 07:29 WBC 9.2 RBC 4.87 Hgb 13.4 L Hct 39.4 L MCV 80.9 MCH 27.5 MCHC 34.0 RDW 13.3 Plt Count 284 MPV 9.9 Immature Gran % (Auto) 0.3 Neut % (Auto) 68.2 Lymph % (Auto) 21.5 [place] % (Auto) 8.0 Eos % (Auto) 1.6 Baso % (Auto) 0.4 Lymph # (Auto) 1.98 [place] # (Auto) 0.7 H Eos # (Auto) 0.2 Baso # (Auto) 0.0 Abs Immat Gran (auto) 0.03 Absolute Neuts (auto) 6.3 Absolute Nucleated RBC 0.000 Nucleated RBC % 0.0 Sodium 136 L Potassium 4.1 Chloride 103 Carbon Dioxide 25 Anion Gap 8 BUN 16 Creatinine 0.80 Estim Creat Clear Calc 99 Estimated GFR > 60 Glucose 100 Calcium 9.1 ASA Classification/Sedation ASA Classification/Sedation ASA Class: II Emergent: No Risks:
--- NOTE | 2023-10-03 08:52 | P.PCNCC_ITS ---
Cardiac Cath Procedure Note Date of procedure:: 10/03/23 Performing physician:: CATHETERIZATION LABORATORY REPORT Procedure Date: 10/03/2023 Electric Meter Inspector: Delphine Mota M.D., [facility]? Referring Physician: Delphine Mota M.D. ? Anesthesia: Versed and Fentanyl were ordered and given in my presence at 09:10, procedure ended at 090:52. Supervision of nurse monitored moderate sedation with Versed and Fentanyl was provided for 42 minutes. Total of Versed 1mg and Fentanyl 50mcg were administered by the Insurance Sales Executive RN Reddy Jean-Baptiste. Pre-op Diagnosis: Coronary artery disease Post-op Diagnosis: Successful IVUS-guided PCI of mid OM with KALLIE x 1 Procedure(s): 1. Moderate sedation 2. Ultrasound-guided access of the right radial artery 3. Selective coronary angiography 4. IVUS of OM 5. PCI of the OM with KALLIE x 1 (2.5mm x 15mm Orsiro KALLEI) Access Site: Right radial artery Brief History and Clinical Indications: Patient is a 42 year old male with CAD s/p prior PCI to the Ramus branch who presents for staged PCI of OM branch. All risks, benefits and alternatives to left heart catheterization with or without percutaneous coronary intervention was discussed at length with the patient. Risk of complications including but not limited to bleeding, infection, arrhythmia, stroke, worsening kidney function, blood loss, groin hematoma, limb loss, emergency coronary artery bypass grafting, and even were discussed with the patient and all questions were answered. The patient understood and wished to proceed. Time out called, patient name, date of , medical record number, allergies, procedure performed, identify Electric Meter Inspector, patient and staff member concurred with accurate data, procedure carried on. Findings: LEFT HEART CATHETERIZATION FINDINGS: Left circumflex: The obtuse marginal branch has a focal 70-80% stenosis in the mid portion. Description of Procedure and PCI: Informed consent signed and placed in the chart. Patient transferred to laborer pipeline room. Prepped and draped in usual sterile fashion. 2% lidocaine injected subcutaneously in right wrist area. 22-gauge venipuncture catheter used to access the right radial artery under ultrasound guidance. 6-FR slender sheath placed in right radial artery. Nitroglycerine and Verapamil were given intraarterial through the sheath. Angiomax was used for anticoagulation. Surgery Partnerscore wire advanced with a 5F FR 4 diagnostic catheter under fluoroscopy. 5F FR 4 diagnostic catheter removed over exchange J wire. 6F CLS 3.0 guide catheter was used to intubate the left main. 0.014 [place] coronary wire was passed in to the distal OM branch. The lesion was pre-dilated with a 2.5 mm x 10 mm balloon inflated to high NATHAN. IVUS catheter advanced distal to the lesion and reference measurements obtained. A 2.5 mm x 15 mm Orsiro KALLIE was successfully deployed into the mid OM. Intracoronary NTG 200mcg was administered. Follow-up angiograms showed an excellent result No angiographic complications identified. Hemostasis was achieved by application of TR band. Post Operative Condition: Stable No significant blood loss Disposition: Home Plan: The patient will be monitored in the recovery area. Discharge home after post- cath bed rest is completed. DAPT for 1 year followed by ASA indefinitely. Continue aggressive medical therapy and risk factor modification. ? Delphine Mota M.D. Interventional Cardiology
--- NOTE | 2023-10-03 10:48 | SUR.PHASEII ---
Angiomax completed and discontinued at this time.
== END 2023-10-03 16:00 | disposition home or self-care (01) ==
PROVIDERS: Visit Provider Internal Medicine
PROC: (CPT 93454; principal; 2023-10-03 08:30)
PROC: (CPT 92928; 2023-10-03 08:30)
DX: I25.10 Atherosclerotic heart disease of native coronary artery without angina pectoris (principal); I10 Essential (primary) hypertension; Z79.82 Long term (current) use of aspirin; Z79.01 Long term (current) use of anticoagulants; Z87.891 Personal history of nicotine dependence
CPT/HCPCS: 36415; 80048; 85025; 92978; 93454; A9270; C1725; C1753; C1769; C1874; C1887; C1894; C9600; J0583; J1644; J2250; J2305; J3010; J7040

== ENCOUNTER 2024-01-16 16:21 | Emergency (ER) | payer OTHER, SELFPAY ==
--- NOTE | ~2024-01-16 | XR_ITS ---
CHEST RADIOGRAPH, PA AND LATERAL CLINICAL HISTORY: cough x 2 weeks, heaviness w/inspiration this am . COMPARISON: 08/08/2023 TECHNIQUE: PA and lateral views of the chest. FINDINGS The cardiomediastinal silhouette is unremarkable. The lungs are clear. Visualized osseous structures and soft tissues are unremarkable. IMPRESSION: No focal infiltrate or effusion. Reviewed, dictated and finalized at location A.
[2024-01-16 16:34] VITALS: BP 115/74; PULSE 73; RESP 16; TEMP 36.2; O2SAT 100
--- NOTE | 2024-01-16 16:52 | ED.URI ---
HPI - URI/Sore Throat General Chief Complaint: Upper Respiratory Infection Stated Complaint: cough,chest issue Time Seen by Provider: 01/16/24 16:52 Source: patient, RN notes reviewed and old records reviewed Mode of arrival: ambulatory Limitations: no limitations History of Present Illness HPI Narrative: 43-year-old male presents to the [facility] with complaints of cough, chest congestion for 2 weeks. States the cough started while he was in [place], returned about a week ago and states symptoms are improving but states he just wanted to get checked out. Related Data Allergies Allergy/AdvReac Type Severity Reaction Status Date / Time bee venom protein (honey bee) Allergy Severe Anaphylaxis Verified 10/03/23 10:04 Review of Systems Review of Systems: All systems reviewed & are unremarkable except as noted in HPI and below Constitutional: Constitutional: Reports no additional constitutional complaints Eyes: Eyes: Reports no additional eye complaints ENT: Reports system reviewed and no additional complaints, except as documented Cardiovascular: Cardiovascular: Reports no additional cardiovascular complaints, Denies chest pain and Denies dyspnea Respiratory: Respiratory: Reports as per HPI, Denies chest congestion, Reports cough and Denies dyspnea Gastrointestinal: Gastrointestinal: Reports no additional gastrointestinal complaints, Denies abdominal pain, Denies nausea and Denies vomiting Musculoskeletal: Musculoskeletal: Reports no additional musculoskeletal complaints Integumentary/Breasts: Skin/Breast: Reports system reviewed and no additional complaints, except as docu Neurologic: Reports system reviewed and no additional complaints, except as documented Psychiatric: Psychiatric: Reports no additional psychiatric complaints Allergic/Immunologic: Allergic/Immunologic: Reports no additional allergic/immunologic complaints PMFSH Past Medical History Medical History Hypertension Surgical History Surgical History Hx of appendectomy Family History Family History Sibling Diabetes mellitus Sibling Diabetes mellitus Mother Hypertension Father Hypertension Acute myocardial infarction Cerebrovascular accident Social History Social History Smoking packs per day: 0.5 Smoking cigarettes per day: 10.0 Years smoked: 16 Smoking pack-years: 8.00 Smoking status: Former smoker Tobacco type: cigarettes Smoking end date: 04/08/15 Alcohol intake: current Drinks per week: 2 Alcohol use details: beer Substance use: never Substance use type: does not use Other substance usage details: Rarely Do You Feel Safe in your Home?: Yes Lack of Transportation: No Lack of Food: Never True Current Housing: I Have Housing Concerned About Future Housing: No Difficulty Paying Gas/Electric Bills: No Difficulty Paying for Meds: No Currently Unemployed: No Education: Decline to Answer Difficulty w/ Childcare or Family Care: No Living arrangements: with family Spiritual care concerns: No Comments At the time of my signature, I reviewed and agree with the nursing past medical, surgical, social, and family history. There is no relevant family history pertinent to the patient complaint. Exam Const: General: cooperative, healthy appearing, comfortable, no acute distress, well developed, alert and well nourished Nutritional Appearance: well nourished Orientation/consciousness: patient oriented x3 Limitations: no limitations HENMT: Head: normal to inspection Ears: hearing grossly normal bilaterally, external ears normal, TM's normal bilaterally, EAC's normal, mastoids normal and no periauricular adenopathy Face/Nose/Sinus: Normal external nose present, normal facial
== END 2024-01-16 17:11 | disposition home or self-care (01) ==
PROVIDERS: Emergency Provider Nurse Practitioner
DX: R05.9 Cough, unspecified (principal); R09.82 Postnasal drip; Z87.891 Personal history of nicotine dependence; I10 Essential (primary) hypertension
CPT/HCPCS: 71046; 99213; G0463

== ENCOUNTER 2024-02-13 16:15 | Outpatient (RCR) | payer OTHER, SELFPAY | END 2024-02-13 23:59 | disposition home or self-care (01) | LOC: ANHCPREHAB 16:15 | PROVIDERS: Visit Provider Internal Medicine | DX: Z95.5 Presence of coronary angioplasty implant and graft (principal) | CPT/HCPCS: 93798 ==

== ENCOUNTER 2024-02-17 16:01 | Observation (INO) | payer OTHER, SELFPAY ==
--- NOTE | ~2024-02-17 | CT_ITS ---
CTA brain carotid Ordering provider: Agapito Sierra MD History: . Left side numbness . Comparison: None. Technique: CT angiogram head and neck was performed following timed intravenous injection of contrast . Thin slice axial images and reformatted coronal images were obtained. Three dimensional reformatted images of the brain were also obtained using a [employer] workstation. DLP: 1615 mGy-cm FINDINGS: The ventricles are normal in size, shape and position. There is no mass, mass effect or midline shift. There is no abnormal extra-axial fluid collection or intracranial hemorrhage. Visualized paranasal sinuses are clear. The mastoid air cells are well aerated. No acute displaced fractures within the overlying cranium. HEAD: --ANTERIOR AND MIDDLE CEREBRAL ARTERIES AND BRANCHES: Normal caliber and contour. --INTERNAL CAROTID ARTERIES: Normal caliber and contour. No dissection. --BASILAR ARTERY AND BRANCHES: Normal caliber and contour. --POSTERIOR CEREBRAL ARTERIES: Normal caliber and contour --POSTERIOR COMMUNICATING ARTERIES: Normal caliber and contour. --ANEURYSM: None visualized. NECK: --RIGHT CERVICAL CAROTID SYSTEM: No atheromatous disease is identified. No dissection is present. Per cent stenosis per NASCET criteria is 0%. --LEFT CERVICAL CAROTID SYSTEM: No atheromatous disease is identified. No dissection is present. Perc ent stenosis per NASCET criteria is 0%. --VERTEBRAL ARTERIES: Asymmetrically smaller right vertebral artery which is otherwise patent. The left vertebral artery demonstrates a normal caliber and contour. --VISUALIZED AORTIC ARCH AND BRANCHING VESSELS: Conventional branching anatomy without stenosis at th e branching origin --SOFT TISSUES: Unremarkable --CERVICAL SPINE: Unremarkable IMPRESSION: 1. Normal CTA head and neck. Percent stenosis per NASCET criteria is 0%. 2. Left vertebral dominance, as detailed above. 3. No acute intracranial hemorrhage or suspicious mass effect. Reviewed, dictated and finalized at location A. NING DEVELOPMENT MANAGER
--- NOTE | ~2024-02-17 | XR_ITS ---
CHEST RADIOGRAPH CLINICAL HISTORY: left-sided numbness . COMPARISON: 01/16/2024 TECHNIQUE: Single portable view of the chest, limited by technique. FINDINGS The cardiomediastinal silhouette is unremarkable. The lungs are clear. Visualized osseous structures and soft tissues are unremarkable. IMPRESSION: No focal infiltrate or effusion. Reviewed, dictated and finalized at location A. AL PERSON
--- NOTE | ~2024-02-17 | MR_ITS ---
EXAMINATION: MR brain/brain stem wo/w con DATE: 02/18/2024 12:13 INDICATION: Left sided paresthesias TECHNIQUE: Magnetic resonance imaging (MRI) of the brain and brainstem was performed without and with 16 mL Multihance intravenous contrast. Sequences included sagittal and axial T1-weighted SE, axial d iffusion-weighted FS SE, , axial T2-weighted FLAIR, and axial T2-weighted FSE. Postcontrast axial and coronal T1-weighted SE was obtained. Apparent diffusion coefficient (ADC) maps were created. COMPARISON: Head CT and CT angiogram dated 02/07/2024 FINDINGS: There are no areas of restricted diffusion to suggest acute infarction. No intracranial hemorrhage or abnormal intracranial mass lesion. Minimal scattered foci of nonspecific increased T2-weighted signa l intensity in the cerebral white matter, predominantly involving the deep and periventricular white matter. There are no intraparenchymal signal abnormalities seen on the other pulse sequences. The kelley tricles are symmetric and normal in size. There are no abnormal extra-axial fluid collections. Flow v oids are seen in the cerebral arteries on the T2-weighted sequences consistent with their expected pa tency. Left vertebral artery is dominant. Mild mucosal thickening the bilateral ethmoid sinuses. Visu alized orbits and soft tissues are unremarkable. There are no areas of abnormal enhancement on the po st contrast images. IMPRESSION: 1. Minimal scattered white matter T2 hyperintensity which is within normal limits for age. No acute i ntracranial process or abnormally enhancing brain lesions. Reviewed, dictated and finalized at location B. TY JUDGE IMPRESSION: 1. Minimal scattered white matter T2 hyperintensity which is within normal limi ts for age. No acute intracranial process or abnormally enhancing brain lesions .
--- NOTE | ~2024-02-17 | MR_ITS ---
MR cervical spine wo/w con Ordering provider: Agapito Kline MD History: . left upper extremity numbness . Comparison: None. Technique: MRI cervical spine with and without contrast enhancement. FINDINGS: CERVICAL SPINAL CORD/CRANIAL CERVICAL JUNCTION: Normal in signal and caliber. No abnormal enhancement . CERVICAL VERTEBRAL BODIES: Normal height and alignment. Normal marrow signal. No abnormal marrow enha ncement. DISK SPACES: Well maintained. C2-C3: No stenosis. C3-C4: No stenosis. C4-C5: No stenosis. C5-C6: Mild spinal canal stenosis secondary to broad based disc bulge. Bilateral narrowing of the fo ramina with nerve root compression. Annulus tear.. C6-C7: No stenosis. Mild diffuse disc bulge. C7-T1: No stenosis. VISUALIZED PARASPINOUS SOFT TISSUES: Normal. No abnormal enhancement. IMPRESSION: 1. Mild spinal canal stenosis at the level of C5-C6 on bilateral narrowing of the foramina and nerve root compression. Annulus tear at the same level.. Reviewed, dictated and finalized at location A. EATIONAL FACILITIES MOTEL MANAGER
[2024-02-17 16:03] VITALS: BP 141/75; PULSE 83; RESP 14; TEMP 36.1; O2SAT 100
--- NOTE | 2024-02-17 17:45 | ECG_ITS ---
Test Date: 2024-02-17 18:04:06 Measurements Intervals [place] Rate: 76 P: 26 CO: 156 QRS: 35 QRSD: 88 T: 71 QT: 373 QTc: 421 Interpretive Statements SINUS RHYTHM POSSIBLE RIGHT VENTRICULAR CONDUCTION DELAY BORDERLINE ECG No previous ECG available for comparison Electronically Signed On 02-17-2024 18:25:30 APPRENTICE by Liu Sosa D.O.
[2024-02-17 18:25] VITALS: BP 122/81; PULSE 65; PULSE 70; RESP 16; O2SAT 100
[2024-02-17 18:27] LABS: Basophils Absolute Auto 0.1 K/mm3 (0.0-0.1); Basophils Percent Auto 0.5 % (0.2-1.2); Eosinophils Absolute Auto 0.2 K/mm3 (0-0.3); Eosinophils Percent Auto 1.6 % (0-4.4); Hematocrit 40.7 % (42.0-52.0); Hemoglobin 13.8 g/dL (14.0-18.0); Immature Granulocyte Absolute 0.06 K/mm3 (0.00-0.031); Immature Granulocyte Percent A 0.5 % (0-0.5); Lymphocytes Absolute Auto 2.46 K/mm3 (0.9-3.2); Lymphocytes Percent Auto 22.5 % (18.3-44.2); Mean Corpuscular HGB Conc 33.9 g/dl (32-36); Mean Corpuscular Hemoglobin 28.3 pg (26-34); Mean Corpuscular Volume 83.6 fl (80-100); Mean Platelet Volume 9.2 fl (7.4-10.4); Monocytes Absolute Auto 1.4 K/mm3 (0.1-0.6); Monocytes Percent Auto 12.6 % (2.6-8.5); Neutrophils Absolute Auto 6.8 K/mm3 (1.3-6.7); Neutrophils Percent Auto 62.3 % (45.5-73.1); Platelet Count Result 314 k/mm3 (150-375); Red Blood Count 4.87 M/mm3 (4.6-6.20); White Blood Count 10.9 K/mm3 (4.5-10.0)
[2024-02-17 18:29] LABS: Add Urine Microscopic? NO; Appearance Urine Clear (Clear); Bilirubin Urine Negative (Negative); Blood Urine Negative (Negative); Color Urine Yellow (Yellow); Glucose Urine UA Negative (Negative); Ketones Urine Negative (Negative); Leukocyte Esterase Ur Negative LEU/UL (Negative); Nitrate Urine Negative (Negative); Protein Urine Negative (Negative); Specific Grav Ur 1.022 (1.001-1.035); pH Urine 6.5 (5.0-9.0)
[2024-02-17 18:38] LABS: Lactic Acid Reflex 1.2 mmol/L (0.7-2.0)
[2024-02-17 18:39] LABS: Alanine Aminotransferase 39 U/L (6-50); Albumin Level 4.3 g/dL (3.5-5.1); Alkaline Phosphatase 101 U/L (38-126); Anion Gap 9 mmol/L (4-12); Aspartate Amino Transferase 32 U/L (17-59); Bilirubin,Total 0.7 mg/dL (0.2-1.3); Blood Urea Nitrogen 20 mg/dL (9-20); Carbon Dioxide 29 mmol/L (22-30); Chloride 96 mmol/L (98-107); Estimated CRCL calculation 95 ml/min; Estimated Glomerular Filt Rate > 60; Glucose 84 mg/dL (65-110); Magnesium 2.2 mg/dL (1.6-2.3); Potassium 3.9 mmol/L (3.4-5.0); Prothrombin Time 13.7 Seconds (11.1-14.7); Sodium 134 mmol/L (137-145)
[2024-02-17 18:40] LABS: Partial Thromboplastin Time 32.1 Seconds (22.3-36.8)
[2024-02-17 18:50] LABS: NT Pro B Type Natriuretic Pept 113 pg/mL (19.9-100); Troponin I < 0.012 ng/mL (0.000-0.034)
--- NOTE | 2024-02-17 19:34 | ED.GENADULT ---
HPI - General Adult General Chief complaint: Neuro Symptoms/Deficit Stated complaint: left arm numbness Time Seen by Provider: 02/17/24 17:36 History of Present Illness HPI narrative: patient is a 43-year-old gentleman presents emergency department chief complaint of numbness tingling in his left arm and left leg patient states he also has had some tingling in his right foot patient states he has prior history of cardiac disease reports he has stents then placed takes Brilinta. Patient states that he woke up with symptoms this morning started somewhere between 7 and 8:00 a.m. in the morning. Patient reports no motor weakness denies facial droop denies dysarthria denies confusion. Related Data Allergies Allergy/AdvReac Type Severity Reaction Status Date / Time bee venom protein (honey bee) Allergy Severe Anaphylaxis Verified 02/17/24 17:06 Review of Systems Review of Systems: A 10 system review of systems was completed on the patient and is negative except for what is stated in the HPI. Nursing and ancillary documentation was reviewed. [facility] Past Medical History Medical History Hypertension Surgical History Surgical History Hx of appendectomy Family History Family History Sibling Diabetes mellitus Sibling Diabetes mellitus Mother Hypertension Father Hypertension Acute myocardial infarction Cerebrovascular accident Social History Social History Smoking packs per day: 0.5 Smoking cigarettes per day: 10.0 Years smoked: 16 Smoking pack-years: 8.00 Smoking status: Former smoker Tobacco type: cigarettes Smoking end date: 04/08/15 Alcohol intake: current Drinks per week: 2 Alcohol use details: beer Substance use: never Substance use type: does not use Other substance usage details: Rarely Do You Feel Safe in your Home?: Yes Lack of Transportation: No Lack of Food: Never True Current Housing: I Have Housing Concerned About Future Housing: No Difficulty Paying Gas/Electric Bills: No Difficulty Paying for Meds: No Currently Unemployed: No Education: Decline to Answer Difficulty w/ Childcare or Family Care: No Living arrangements: with family Spiritual care concerns: No Exam Narrative: GENERAL: Well-appearing, well-nourished, and in no acute distress. HEAD: Normocephalic, atraumatic. EYES: PERRLA and EOMI. ENT: Nares clear, no rhinorrhea or epistaxis. Mucous membranes moist. NECK: Supple. CHEST: Clear to auscultation. No respiratory distress. HEART: Regular rate and rhythm. No murmur heard. Normal peripheral pulses. ABDOMEN: Soft, nontender, nondistended, normal active bowel sounds. EXTREMITIES: Normal range of motion. No edema. SKIN: Warm, dry, no rash. NEURO: No focal deficits. Alert and oriented x3. PSYCH: Normal mood and affect. Course Vital Signs Vital signs: Vital Signs Temperature 36.1 C L 02/17/24 16:03 Pulse Rate 83 02/17/24 16:03 Respiratory Rate 14 02/17/24 16:03 Blood Pressure 141/75 H 02/17/24 16:03 Pulse Oximetry 100 02/17/24 16:03 Oxygen Delivery Room Air 02/17/24 16:03 Temperature 36.1 C L 02/17/24 16:03 Pulse Rate 71 02/17/24 20:03 Respiratory Rate 18 02/17/24 20:03 Blood Pressure 141/81 H 02/17/24 20:03 Pulse Oximetry 98 02/17/24 20:03 Oxygen Delivery Room Air 02/17/24 16:03 Medical Decision Making [facility] Narrative Medical decision making narrative: differential diagnosis includes CVA, peripheral nerve paresthesia, ACS EKG showed no acute ischemic changes troponin was negative CTA head neck showed no acute abnormality Vital Signs Vital Signs: Vital Signs Temperature 36.1 C L 02/17/24 16:03 Pulse Rate 83 02/17/24 16:03 Respiratory Rate 14 02/17/24 16:03 Blood Pressure 141/75 H 02/17/24 16:03 Pulse Oximetry 100 02/17/24 16:03 Oxygen Delivery Room Air 02/17/24 16:03 Temperature 36.1 C L 02/17/24 16:03 Pulse Rate 71 02/17/24 20:03 Respiratory Rate 18 02/17/24 20:03 Blood Pressure 141/81 H 02/17/24 20:03 Pulse Oximetry 98 02/17/24 20:03 Oxygen Delivery Room Air 02/17/24 16:03 Lab Data 02/17/24 18:19 02/17/24 18:19 Labs: Lab Results 02/17/24 Range/Units 18:19 WBC 10.9 H (4.5-10.0) K/mm3 RBC 4.87 (4.6-6.20) M/mm3 Hgb 13.8 L (14.0-18.0) g/dL Hct 40.7 L (42.0-52.0) % MCV 83.6 (80-100) fl MCH 28.3 (26-34) pg MCHC 33.9 (32-36) g/dl RDW 13.0 (11.5-14.5) % Plt Count 314 (150-375) k/mm3 MPV 9.2 (7.4-10.4) fl Immature Gran % (Auto) 0.5 (0-0.5) % Neut % (Auto) 62.3 (45.5-73.1) % Lymph % (Auto) 22.5 (18.3-44.2) % [place] % (Auto) 12.6 H (2.6-8.5) % Eos % (Auto) 1.6 (0-4.4) % Baso % (Auto) 0.5 (0.2-1.2) % Lymph # (Auto) 2.46 (0.9-3.2) K/mm3 [place] # (Auto) 1.4 H (0.1-0.6) K/mm3 Eos # (Auto) 0.2 (0-0.3) K/mm3 Baso # (Auto) 0.1 (0.0-0.1) K/mm3 Abs Immat Gran (auto) 0.06 H (0.00-0.031) K/mm3 Absolute Neuts (auto) 6.8 H (1.3-6.7) K/mm3 Absolute Nucleated RBC 0.000 (0.0-0.012) K/mm3 Nucleated RBC % 0.0 (0.0-0.2) % PT 13.7 (11.1-14.7) Seconds INR 1.0 APTT 32.1 (22.3-36.8) Seconds Sodium 134 L (137-145) mmol/L Potassium 3.9 (3.4-5.0) mmol/L Chloride 96 L (98-107) mmol/L Carbon Dioxide 29 (22-30) mmol/L Anion Gap 9 (4-12) mmol/L BUN 20 (9-20) mg/dL Creatinine 0.80 (0.7-1.3) mg/dL Estim Creat Clear Calc 95 ml/min Estimated GFR > 60 (59 - ) Glucose 84 (65-110) mg/dL Lactic Acid 1.2 (0.7-2.0) mmol/L Calcium 9.0 (8.4-10.2) mg/dL Magnesium 2.2 (1.6-2.3) mg/dL Total Bilirubin 0.7 (0.2-1.3) mg/dL AST 32 (17-59) U/L ALT 39 (6-50) U/L Alkaline Phosphatase 101 (38-126) U/L Troponin I < 0.012 (0.000-0.034) ng/mL NT-Pro-B Natriuret Pep 113 H (19.9-100) pg/mL Total Protein 7.0 (6.3-8.2) g/dL Albumin 4.3 (3.5-5.1) g/dL Procalcitonin 0.0 ng/mL Urine Color Yellow (Yellow) Urine Appearance Clear (Clear) Urine pH 6.5 (5.0-9.0) Ur Specific [place] 1.022 (1.001-1.035) Urine Protein Negative (Negative) mg/dL Urine Glucose (UA) Negative (Negative) mg/dL Urine Ketones Negative (Negative) mg/dL Ur Blood (Man) Negative (Negative) Urine Nitrate Negative (Negative) Urine Bilirubin Negative (Negative) Urine Urobilinogen 1.0 (<2.0) mg/dL Leukocyte Esterase Rfl Negative (Negative) GILBERT/UL Discharge Plan Discharge Clinical Impression: Arm numbness left Patient Disposition: Still a Patient Condition: Stable Prescriptions: No Action fluticasone propionate [Flonase Allergy Relief] 50 mcg/actuation spray,suspension 2 spray intranasal DAILY Qty: 48 3RF Rx Instructions: administer into each nostril 1 or 2 puffs daily aspirin 81 mg Tablet,Delayed Release (Dr/Ec) 81 mg PO QAM Qty: 30 0RF atorvastatin 40 mg Tablet 80 mg PO DAILY Qty: 60 0RF metoprolol succinate 50 mg Tablet Extended Release 24 Hr 50 mg PO QAM Qty: 30 0RF losartan 25 mg Tablet 25 mg PO DAILY Qty: 30 0RF Brilinta 90 mg Tablet 90 mg PO Q12HR Qty: 60 0RF Follow-up/Referrals: UNKNOWN,DOCTOR [Primary Care Provider] - Time of Disposition: 20:56
[2024-02-17 19:40] VITALS: BP 117/86; PULSE 71; RESP 17; O2SAT 98
[2024-02-17 20:03] VITALS: BP 141/81; PULSE 71; RESP 18; O2SAT 98
--- NOTE | 2024-02-17 21:19 | ECG_ITS ---
Test Date: 2024-02-17 21:33:48 Measurements Intervals [place] Rate: 67 P: 24 CT: 160 QRS: 34 QRSD: 90 T: 56 QT: 380 QTc: 402 Interpretive Statements SINUS RHYTHM INCOMPLETE RIGHT BUNDLE BRANCH BLOCK BASELINE ARTIFACT- I, III, AVL, V4 BORDERLINE ECG Compared to ECG 02/17/2024 18:04:06 No significant changes Electronically Signed On 02-18-2024 05:43:46 WIRE STITCHER MACHINE by Liu Sosa D.O.
--- NOTE | 2024-02-17 21:34 | P.HP_ITS ---
H&P: HPI History of Present Illness Date/Time: 02/17/24 21:34 Chief Complaint: Left arm tingling, on and off tingling of bilateral legs Narrative: 43-year-old male with past medical history of essential hypertension, coronary artery disease and allergic rhinitis who presented to the ER with acute onset of left arm tingling since around 07:30. He also reports intermittent episodes of bilateral lower extremity tingling on and off for the last month usually relieved with position changes. Patient reports that he felt fine when he woke up but as he was getting ready for work and noticed that his left hand arm was a little bit tingly and uncomfortable. He reported that it was minimal discomfort. On further questioning he thinks that the pain may be worse with turning his head to the left side. He has noticed some left posterior neck discomfort ever since he was riding his motorcycle yesterday. He denies dropping anything, any facial paresthesias, or directly correlating left lower extremity paresthesias. He reports that he noticed last month when he was made road trip P was having tingling of his lower extremities. He thought it may be due to his history of heart disease and recent cardiac catheterization in August. He reports that the paresthesias in his legs usually get better when he gets up and walks around. He reports that he he is noticing intermittent paresthesias of both lower extremities that seems to worsen when he fold his leg under the opposing leg in a figure 4 position. He had does not have any associated changes in speech, facial asymmetry, tremors, weakness, loss of coordination or difficulty walking. He has not had any recent falls or known injuries. He has not had any recent chest pain or palpitations. He has been compliant with his home antihypertensives, Brilinta, 81 mg aspirin and atorvastatin. He does have increased bruising since he has been started on Brilinta. History obtained from patient, here fissure from report, and review of past medical records. All patient's questions were answered and patient of agrees with current plan. Review of Systems Review of Systems: 12 systems were reviewed with pertinent positives and negatives per HPI. Except as documented in the HPI, all other systems were reviewed and are negative. [facility] Past Medical History Medical History (Updated 02/17/24 @ 21:56 by Kelley Aguilera DO) Diastolic dysfunction without heart failure Echocardiogram August 2023 demonstrated grade 1 diastolic dysfunction EF of 50 55% with mid anterolateral wall hypokinesis Hiatal hernia Hypertension NSTEMI (non-ST elevated myocardial infarction) Surgical History Surgical History (Updated 02/17/24 @ 21:47 by Kelley Aguilera DO) History of coronary artery stent placement 08/08/2023 acute complete occlusion of the mid ramus with 3 mm x 26 mm drug- eluting stent. 10/03/2023 with staged PCI of obtuse marginal with a 2.5 mm x 15 mm drug-eluting stent (Dr. Delphine Mota) History of esophagogastroduodenoscopy (EGD) (06/01/22) Nonerosive reflux disease History of thumb surgery Titanium screw right thumb Hx of appendectomy Family History Family History Sibling Diabetes mellitus Sibling Diabetes mellitus Mother Hypertension Father Hypertension Acute myocardial infarction Cerebrovascular accident Social History Social History (Updated 02/17/24 @ 21:49 by Kelley Aguilera DO) Social History: He was for 20 years. He has been since July 2023. He and his raised 3 children his youngest child is 18 years old. 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 He smoked a half a pack of cigarettes for approximately 15 years but quit smoking in his mid 30s. He drinks a beer on occasion. Denies illicit substance use. Code status: Full code Surrogate decision maker: Mother Smoking packs per day: 0.5 Smoking cigarettes per day: 10.0 Years smoked: 15 Smoking pack-years: 7.50 Smoking status: Former smoker Tobacco type: cigarettes Smoking end date: 04/08/15 Alcohol intake: current Drinks per week: 2 Alcohol use details: beer Substance use: never Substance use type: does not use Other substance usage details: Rarely Do You Feel Safe in your Home?: Yes Lack of Transportation: No Lack of Food: Never True Current Housing: I Have Housing Concerned About Future Housing: No Difficulty Paying Gas/Electric Bills: No Difficulty Paying for Meds: No Currently Unemployed: No Education: Decline to Answer Difficulty w/ Childcare or Family Care: No Living arrangements: with family Spiritual care concerns: No Meds Home Medications and Allergies Home Medications Medication Instructions Recorded Confirmed Type aspirin 81 mg tablet,delayed 81 mg PO QAM #30 tabs 08/09/23 02/17/24 Rx release atorvastatin 40 mg tablet 80 mg PO DAILY #60 tabs 08/09/23 02/17/24 Rx losartan 25 mg tablet 25 mg PO DAILY #30 tabs 08/09/23 02/17/24 Rx metoprolol succinate 50 mg 50 mg PO QAM #30 tabs 08/09/23 02/17/24 Rx tablet,extended release 24 hr ticagrelor 90 mg tablet (Brilinta) 90 mg PO Q12HR #60 tabs 08/09/23 02/17/24 Rx fluticasone propionate 50 2 spray intranasal DAILY chronic 02/11/24 02/17/24 Rx mcg/actuation nasal seasonal allergic rhinitis #48 mL spray,suspension (Flonase Allergy Relief) Allergies Allergy/AdvReac Type Severity Reaction Status Date / Time bee venom protein (honey bee) Allergy Severe Anaphylaxis Verified 02/17/24 17:06 Vital Signs Vital Signs - 24 hr 02/17/24 16:03 02/17/24 18:25 02/17/24 18:25 Temperature 97.0 F L Pulse Rate 83 65 70 Respiratory Rate 14 16 Blood Pressure 141/75 H 122/81 Pulse Oximetry 100 100 Oxygen Delivery Room Air 02/17/24 19:40 02/17/24 20:03 Temperature Pulse Rate 71 71 Respiratory Rate 17 18 Blood Pressure 117/86 141/81 H Pulse Oximetry 98 98 Oxygen Delivery Exam Narrative: Weight 80 kg BMI 27.6 Const: Other: Well-developed, well-nourished, no acute distress, appears stated age HENMT: Other: Mucous membranes are moist, no oral pharyngeal erythema, head is normocephalic atraumatic Eyes: Other: Pupils are equal and reactive, extraocular movements intact, no scleral icterus Neck: Other: No lymphadenopathy, no thyromegaly, supple, Paraspinal muscle tenderness left posterior cervical and muscle tightness of the sternocleidomastoid Resp: Other: Clear to auscultation bilaterally, no increased work of breathing Cardio: Other: Regular rate, regular rhythm, 2+ bilateral radial pedal pulses GI: Other: Soft, nontender, nondistended, positive bowel sounds Skin: Other: No jaundice, no pallor Neuro: Other: Alert orient x4, speech is clear/fluent, no facial asymmetry, cranial nerves 2- 12 grossly intact, [id number] intact, rapid alternating movements normal, paresthesias of the left arm, hand and fingers, equal living skills advisor strength, no ataxia Extrem: Other: 5/5 living skills advisor strength, equal 5/[address] griffin and dorsiflexion lower extremity, gait not evaluated Psych: Other: Appropriate mood and affect, pleasant and cooperative, judgment and insight intact H&P: Results Labs Labs: Laboratory Tests 02/17/24 18:19 02/17/24 18:19 02/17/24 02/17/24 18:19 21:31 WBC 10.9 H RBC 4.87 Hgb 13.8 L Hct 40.7 L MCV 83.6 MCH 28.3 MCHC 33.9 RDW 13.0 Plt Count 314 MPV 9.2 Immature Gran % (Auto) 0.5 Neut % (Auto) 62.3 Lymph % (Auto) 22.5 [place] % (Auto) 12.6 H Eos % (Auto) 1.6 Baso % (Auto) 0.5 Lymph # (Auto) 2.46 [place] # (Auto) 1.4 H Eos # (Auto) 0.2 Baso # (Auto) 0.1 Abs Immat Gran (auto) 0.06 H Absolute Neuts (auto) 6.8 H Absolute Nucleated RBC 0.000 Nucleated RBC % 0.0 PT 13.7 INR 1.0 APTT 32.1 Sodium 134 L Potassium 3.9 Chloride 96 L Carbon Dioxide 29 Anion Gap 9 BUN 20 Creatinine 0.80 Estim Creat Clear Calc 95 Estimated GFR > 60 Glucose 84 Lactic Acid 1.2 Calcium 9.0 Magnesium 2.2 Total Bilirubin 0.7 AST 32 ALT 39 Alkaline Phosphatase 101 Troponin I < 0.012 Pending NT-Pro-B Natriuret Pep 113 H Total Protein 7.0 Albumin 4.3 Procalcitonin 0.0 Urine Color Yellow Urine Appearance Clear Urine pH 6.5 Ur Specific [place] 1.022 Urine Protein Negative Urine Glucose (UA) Negative Urine Ketones Negative Ur Blood (Man) Negative Urine Nitrate Negative Urine Bilirubin Negative Urine Urobilinogen 1.0 Leukocyte Esterase Rfl Negative Impressions Chest X-Ray 02/17/24 18:15 (personally reviewed and interpreted) IMPRESSION: No focal infiltrate or effusion. Head/Neck CTA 02/17/24 19:56 IMPRESSION: 1. Normal CTA head and neck. Percent stenosis per NASCET criteria is 0%. 2. Left vertebral dominance, as detailed above. 3. No acute intracranial hemorrhage or suspicious mass effect. EKG x2: Personally reviewed interpreted Normal sinus rhythm, normal intervals Assessment and Plan Assessment and plan (1) Arm numbness left: Code(s): R20.0 - Anesthesia of skin Status: Acute (2) Neck pain on left side: Code(s): M54.2 - Cervicalgia Status: Acute (3) Bilateral leg paresthesia: Code(s): R20.2 - Paresthesia of skin Status: Acute Plan Patient is having tingling in of the left upper extremity with associated left- sided sternocleidomastoid tightness and paraspinal muscle tenderness. This likely due to nerve impingement and CVA/TIA is less likely. However patient is at higher risk for CVA given history of premature coronary artery disease. Patient will be admitted for observation and MRI to rule out central deficit. Patient will be placed on telemetry and will monitor neuro checks q.4 hours. Patient had recent echocardiogram in August so no need to repeat. Patient has no evidence of carotid occlusion on CTA of head and neck. Patient does have intermittent bilateral lower extremity paresthesias but the seemed to be more positional in nature resolved with movement and activity. Again less likely due to CVA or TIA. Quality VTE Prophylaxis VTE prophylaxis: mechanical ordered Stroke Date of last known normal: 02/17/24 Time of last known normal: 07:30 Stroke Scale Stroke scale date:: 02/17/24 Stroke scale time:: 21:00 1a Level of conciousness: alert-0 1b Level of consciousness: answers both correctly-0 1c Level of consciousness: obeys both correctly-0 2 Best gaze: normal-0 3 Visual: no visual loss-0 4 Facial palsy: normal-0 5a Motor: left arm: no drift-0 5b Motor: right arm: no drift-0 6a Motor: left leg: no drift-0 6b Motor: right leg: no drift-0 7 Limb ataxia: absent-0 8 Sensory: normal-0 9 Best language: no aphasia-0 10 Dysarthria: normal-0 11 Extinction and inattention: no abnormality-0 Level:: 0 Pharmacological Therapy Was IV thrombolytic therapy given?: No Hospitalist MIPS Advance Care Plan I have confirmed that the patient's Advanced Care Plan is present, code status is documented, or surrogate decision maker is listed in patient medical record.: Yes Medication Reconciliation I have utilized all available resources to obtain, update and review the patient s current medications (includes all prescriptions, OTC, herbals, cannabis, and nutritional supplements).: Yes
[2024-02-17 22:01] LABS: Troponin I < 0.012 ng/mL (0.000-0.034)
[2024-02-17 22:05] VITALS: BP 145/95; PULSE 74; RESP 21; O2SAT 99
[2024-02-17 22:42] VITALS: BMI 26.5
[2024-02-17 22:43] VITALS: BP 130/94; PULSE 68; RESP 20; TEMP 36.2; O2SAT 99
[2024-02-18] VITALS (7 sets, daily range): BP systolic 127–129; BP diastolic 84–85; PULSE 65–81; RESP 16–20; TEMP 36.3–36.6; O2SAT 98–99
--- NOTE | 2024-02-18 00:46 | ADMGEN ---
This patient, Kaleb Evans Jr., was admitted to Medical Room 345-01. Patient/family oriented to hospital policies and general routines including ID bracelet, bed and alarms, visiting hours, pain management, procedures, bathroom and other care routines, personal items, smoking policy, room service/diet, and visiting hours. Information on how to activate the Rapid Response Team has been discussed. Patient/Family are encouraged to report perceived risks to care and to ask questions if they do not understand what they are told or what they should do.
[2024-02-18] MEDS: TICAGRELOR 90 MG TABLET PO (09:00)
[2024-02-18] MEDS: FLUTICASONE PROPIONATE 0.05% NA SPR 16 GM BTL (*BKC) 2 SPRAY NASAL (09:00)
[2024-02-18] MEDS: ASPIRIN 81 MG ENTERIC TABLET PO (09:01)
[2024-02-18] MEDS: LOSARTAN POTASSIUM 25 MG TABLET PO (09:01)
[2024-02-18] MEDS: METOPROLOL SUCCINATE EXT REL 50 MG TABCR PO (09:01)
[2024-02-18] MEDS: ATORVASTATIN 40 MG TABLET 80 MG PO (09:01)
--- NOTE | 2024-02-18 11:30 | PC.NURSE ---
Patient off of unit to MRI
--- NOTE | 2024-02-18 13:45 | P.DS_ITS ---
DS: Admitting Diagnosis Discharge Date 02/18/24 Admitting Diagnosis Left arm tingling, on and off tingling of bilateral legs DS: Discharge Diagnosis Discharge Diagnosis (1) Arm numbness left: Code(s): R20.0 - Anesthesia of skin Status: Acute (2) Neck pain on left side: Code(s): M54.2 - Cervicalgia Status: Acute (3) Bilateral leg paresthesia: Code(s): R20.2 - Paresthesia of skin Status: Acute DS: Summary Hospital Course Reason for hospitalization: 43yo male with HTN, CAD and allergic rhinitis here for left arm tingling, on and off tingling of bilateral legs. Please see H&P for details. Hospital Course: In the ED, his vital signs were normal. Lactic 1.2. CBC with WBC 10.9K. CMP normal except sodium 134. Troponin negative x2. UA clear. EKG showing normal sinus with borderline RV conduction delay. Repeat EKG showing no change. He has been complaint with his home medications which were continued here. CXR showing no focal infiltrates. CTA head/neck was normal with left vertebral dominance. Brain MR showing minimal scattered white matter T2 hyperintensity which is withiin normal limits. No acuter intracranial process or abnormally enhancing brain lesions. Cervical spine MR showing mild spinal canal stenosis at the level of C5-C6 on bilateral narrowing of the foramina and nerve root compression. Annulus tear at the same level. No abnormal enhancing lesions seen. Patient does have intermittent bilateral lower extremity paresthesias but the seemed to be more positional in nature resolved with movement and activity. He overall did well and was able to be discharged home on 02/18/24. We will hae patient follow- up with Neurology for possible further testing. Patient overall did well and was able to be discharged home on 02/18/2024. Status at Discharge Cognitive/behavioral status at discharge: Stable Time Spent with Patient Time attestation: Total time spent providing and/or coordinating discharge services: 34 minutes Time spent: Greater than 30 minutes Exam Narrative: AF 97.4 127/84 72 20 98% ra Gen - NARD Chest - CTA bilaterally, nml RR CV - RRR S1/S2 Abd - Soft, NT/ND, Positive BS Ext - No pedal edema Neuro - Alert and oriented. Nonfocal exam. Psych - Nml mood and affect Skin - Warm and dry DS: Data Data Completed and Pending Labs on day of discharge: Labs from last 24 hours 02/17/24 02/17/24 21:31 18:19 WBC 10.9 H RBC 4.87 Hgb 13.8 L Hct 40.7 L MCV 83.6 MCH 28.3 MCHC 33.9 RDW 13.0 Plt Count 314 MPV 9.2 Immature Gran % (Auto) 0.5 Neut % (Auto) 62.3 Lymph % (Auto) 22.5 [place] % (Auto) 12.6 H Eos % (Auto) 1.6 Baso % (Auto) 0.5 Lymph # (Auto) 2.46 [place] # (Auto) 1.4 H Eos # (Auto) 0.2 Baso # (Auto) 0.1 Abs Immat Gran (auto) 0.06 H Absolute Neuts (auto) 6.8 H Absolute Nucleated RBC 0.000 Nucleated RBC % 0.0 PT 13.7 INR 1.0 APTT 32.1 Sodium 134 L Potassium 3.9 Chloride 96 L Carbon Dioxide 29 Anion Gap 9 BUN 20 Creatinine 0.80 Estim Creat Clear Calc 95 Estimated GFR > 60 Glucose 84 Lactic Acid 1.2 Calcium 9.0 Magnesium 2.2 Total Bilirubin 0.7 AST 32 ALT 39 Alkaline Phosphatase 101 Troponin I < 0.012 < 0.012 NT-Pro-B Natriuret Pep 113 H Total Protein 7.0 Albumin 4.3 Procalcitonin 0.0 Urine Color Yellow Urine Appearance Clear Urine pH 6.5 Ur Specific [place] 1.022 Urine Protein Negative Urine Glucose (UA) Negative Urine Ketones Negative Ur Blood (Man) Negative Urine Nitrate Negative Urine Bilirubin Negative Urine Urobilinogen 1.0 Leukocyte Esterase Rfl Negative Discharge Plan Discharge Attending physician on discharge: Agapito Kline Discharging Clinician: Agapito Kline Anticipated Discharge Date/Time: 02/18/24 13:55 Patient Disposition: Home, Self-Care Activity: as tolerated Diet: heart healthy Discharge Instructions: Contact your doctor or call 911 and come to the Emergency Room if you have weakness in an arm or leg or other worrisome symptoms. Avoid NSAIDs (ibuprofen, naproxen, Aleve). Tylenol is safe to take. Follow-up with your primary care provider in 1-2 weeks. Please call for appointment. Follow-up with Neurology in 2-4 weeks. Please call for an appointment. Thank you for using [facility] for your health care needs. Patient Instructions: Antibiotic Form, Ticagrelor (By mouth), Pain Management (DC) Stand Alone Forms: General Discharge Information Follow-up/Referrals: Lianet Viramontes MD [Physician] - Call for Appointment Cesar,Linda Avila NP [Primary Care Provider] - Call for Appointment Discharge Medications: Continued fluticasone propionate [Flonase Allergy Relief] 50 mcg/actuation spray,suspension 2 spray intranasal DAILY Qty: 48 3RF Rx Instructions: administer into each nostril 1 or 2 puffs daily aspirin 81 mg Tablet,Delayed Release (Dr/Ec) 81 mg PO QAM Qty: 30 0RF atorvastatin 40 mg Tablet 80 mg PO DAILY Qty: 60 0RF metoprolol succinate 50 mg Tablet Extended Release 24 Hr 50 mg PO QAM Qty: 30 0RF losartan 25 mg Tablet 25 mg PO DAILY Qty: 30 0RF Brilinta 90 mg Tablet 90 mg PO Q12HR Qty: 60 0RF Date of admission: 02/17/24 20:54 Primary Care Provider: Cesar,Linda Avila Admitting Provider: Kelley Aguilera Attending physician on admission: Kelley Aguilera Condition: Stable Hospitalist MIPS Heart Failure (Exclusion) Patient has history of Heart Transplant or Left Ventricular Assistive Device?: No IF YES, STOP HERE Heart Failure (Qualifier) Patient has current or prior documentation of LVEF less than or equal to 40%, or mod/servere depressed LVSF?: No IF NO, STOP HERE
== END 2024-02-18 15:00 | disposition home or self-care (01) ==
LOC: ANHED 20:56 → ANH3MED 22:10
PROVIDERS: Admitting Provider Internal Medicine; Emergency Provider Emergency Medicine; PCP Nurse Practitioner Family; Visit Provider Internal Medicine
DX: R20.0 Anesthesia of skin (principal); R20.2 Paresthesia of skin; M54.2 Cervicalgia; M48.02 Spinal stenosis, cervical region; I25.10 Atherosclerotic heart disease of native coronary artery without angina pectoris; I11.9 Hypertensive heart disease without heart failure; J30.9 Allergic rhinitis, unspecified; I25.2 Old myocardial infarction; Z95.5 Presence of coronary angioplasty implant and graft; Z87.891 Personal history of nicotine dependence; Z79.02 Long term (current) use of antithrombotics/antiplatelets; Z79.82 Long term (current) use of aspirin; Z79.899 Other long term (current) drug therapy
CPT/HCPCS: 36415; 70496; 70498; 70553; 71045; 72156; 80053; 81003; 83605; 83735; 83880; 84145; 84484; 85025; 85610; 85730; 93005; 99285; A9270; A9577; G0378; Q9967

== ENCOUNTER 2024-03-16 16:15 | Outpatient (RCR) | payer OTHER, SELFPAY | END 2024-04-03 14:58 | disposition home or self-care (01) | LOC: ANHCPREHAB 16:15 | PROVIDERS: PCP Nurse Practitioner Family; Visit Provider Internal Medicine | DX: Z98.61 Coronary angioplasty status (principal) | CPT/HCPCS: 93798 ==

== ENCOUNTER 2024-06-11 09:42 | Outpatient (CLI) | payer OTHER, SELFPAY ==
--- OUTSIDE RECORDS SUMMARY | 2024-06-11 10:45 | XMS_ITS | Clinical Summary ---
Author Organization [facility] [address] Address [address] [place] [address] Care Team Providers Care Flight Technician Name Role Phone Alexa Dougherty MD Primary Care Provider + Allergies Active Allergy Reactions Criticality Noted Date Comments Venom-Wasp Swelling Medium 02/14/2024 Medications atorvastatin (LIPITOR) 40 mg tabletIndications :Coronary artery disease, unspecified vessel or lesion type, unspecified whether angina present, unspecified whether newtok or transplanted heart Take 2 tablets (80 mg total) by mouth daily 60 tablet 11 4 08/30/19 25 Active losartan (COZAAR) 25 mg tabletIndications :Coronary artery disease, unspecified vessel or lesion type, unspecified whether angina present, unspecified whether [place] or transplanted heart Take 1 tablet (25 mg total) by mouth daily 90 tablet 3 4 08/30/19 25 Active aspirin 81 mg enteric coated tablet Take 1 tablet (81 mg total) by mouth daily Active ticagrelor (BRILINTA) 90 mg tablet Take 1 tablet (90 mg total) by mouth 2 (two) times a day Active metoprolol XL (TOPROL-XL) 50 mg extended release tablet Take 1 tablet (50 mg total) by mouth daily Active meloxicam (MOBIC) 7.5 mg tablet Take 1 tablet (7.5 mg total) by mouth daily 4 Active pyridoxine (VITAMIN B-6) 50 mg tablet Take 1 tablet (50 mg total) by mouth daily 4 Active Active Problems Problem Noted Date Diagnosed Date Coronary artery disease invo lving newtok coronary artery of newtok heart without angina pectoris 08/16/2023 History of percutaneous coronary intervention History of non-ST elevation myocardial infarctio n (NSTEMI) 08/16/2023 Hyperlipidemia 08/16/2023 Hypertension 08/16/2023 Encounters Date Type Department Care Team Description 04/10/2024 1:30 PM SUPERVISOR STATEMENT CLERKS Office Visit [facility] Cardiology [address] [place] [address] Mirta Dominguez NP Coronary artery disease involving newtok coronary artery of newtok heart without angina pectoris (Primary Dx); History of non-ST elevation myocardial infarction (NSTEMI); History of percutaneous coronary intervention from Last 3 Months Surgical History Surgery Date Site/Laterality Comments CARDIAC CATHETERIZATION APPENDECTOMY THUMB SURGERY Right Medical History Medical History Date Comments NSTEMI (non-ST elevated myocardial infarction) ( HCC) GERD (gastroesophageal reflux disease) Hypertension Family History Medical History Relation Name Comments Stroke Father Hypertension Mother Relation Name Status Comments Father Mother Alive Social History Tobacco Use Types Packs/Day Years Used Date Smoking Tobacco: Former Cigarettes Tobacco Cessation:Counseling Given: Not Answered Personal Safety Answer Date Recorded Have you ever been in or are you currently in a harmful physical or emotional relationship or is someone making you feel afraid or unsafe? Denies 02/14/2024 Sex and Gender Information Value Date Recorded Sex Assigned at Not on file Legal Sex Male 6:07 PM SUPERVISOR STATEMENT CLERKS Gender Identity Not on file Sexual Orientation Not on file Obstetrics History Last Filed Vital Signs Vital Sign Reading Time Taken Comments Blood Pressure 110/70 04/10/2024 1:31 PM SUPERVISOR STATEMENT CLERKS Pulse 71 04/10/2024 1:31 PM SUPERVISOR STATEMENT CLERKS Temperature 36.4 C (97.6 F) 02/14/2024 12:23 PM SUPERVISOR STATEMENT CLERKS Respiratory Rate 15 02/14/2024 5:00 PM SUPERVISOR STATEMENT CLERKS Oxygen Saturation 96% 04/10/2024 1:31 PM SUPERVISOR STATEMENT CLERKS Inhaled Oxygen Concentration - - Weight 81.6 kg (180 lb) 04/10/2024 1:31 PM SUPERVISOR STATEMENT CLERKS Height 170.2 cm (5' 7 ) 04/10/2024 1:31 PM SUPERVISOR STATEMENT CLERKS Body Mass Index 28.19 04/10/2024 1:31 PM SUPERVISOR STATEMENT CLERKS Plan of Treatment Health Maintenance Due Date Last Done Comments Colon Cancer Screening-Colonoscopy 1978 Depression Screening 1978 Hepatitis C Screening 1978 Hepatitis B Screening 1996 Regular Well Visit/Exam 18-64 1996 Influenza Vaccine (#1) 2023 DTaP/Tdap/Td Vaccine (3 - Td or Tdap) 10/04/2026 10/04/2016, 10/26/2013 HPV Vaccines Aged Out No longer eligi ble based on patient's age to complete this topic Pneumococcal vaccine <65 Aged Out No longer eligible based on patient's age to complete this topic [place] [address] [place] [address] [facility] HMO/POS Care Teams Flight Technician Relationship Specialty Start Date End Date Alexa Dougherty MD [address] [place] [address] [address] PCP - General Family Medicine 08/16/23
--- OUTSIDE RECORDS SUMMARY | 2024-06-11 10:45 | XMS_ITS | Continuity of Care Document ---
Author Organization [facility] Address [address] [place] [address] Phone Care Team Providers Care Wood Lather Name Role Phone Aba Brantley DO Unavailable Unavailable Advance Directives Directive Yes / No Effective Date File Name No Information Encounters Encounter Description Practice Location Reason(s) For Visit Diagnoses Date Provider Providers Copied on Encounter [facility], [address], [place], [place], [id number], [place] tel:[phone] [facility] No Information Karon Shelley. [address] [facility], [place], [address], [place]. tel: [phone] Family History Family Member Type Diagnosis Age At Onset No Information Payers Payer name Insurance type Covered constitution party ID Authoriza tion(s) No Information Social History Type Description Quantity Date Captured Comments Sex Male Smoking Status No Information Chief Complaint And Reason For Visit No Information Reason For Referral Reason For Referral No Information History Of Present Illness Encounter Date Complaint History Of Prese nt Illness No Information Functional Status Date Functional Assessmen t No Information Instructions Date Instruction Additional Infor mation No Information Assessments Type Assessment Date No Information Patient Care Teams Name Effective Dates (start - stop) Status Members No Information
--- OUTSIDE RECORDS SUMMARY | 2024-06-11 10:45 | XMS_ITS | Patient Health Summary ---
Author Organization [facility] Address [address] [place] [address] [place] [address] Care Team Providers Care Paste Up Worker Name Role Phone Unavailable Primary Care Provider Unavailabl e Note from [facility],non-owned Affiliates and Associated Physician Practices is amultiple site organization consisting of ambulatory clinics and hospital sitesin [place], [place], [place] and [place]. This disclosure is being madepursuant to the Care Everywhere program and may not contain all information available regarding this patient. Last updated 17.[facility] Allergies * Aspirin Medications * Be aware that medications may not be up to date on this document. Alwaysverify current medications with the patient. * methylPREDNISolone (MEDROL DOSEPAK) 4 MG tablet(Started 10/24/2009) Take by mouth as directed. * albuterol (PROVENTIL; VENTOLIN) 90 MCG/ACT inhaler(Started 10/24/2009) Inhale 1-2 Puffs by mouth every 4 hours as needed for Shortness of Breath and Wheezing. Social History Tobacco Use Types Packs/Day Years Used Date Smoking Tobacco: Every Day Cigarettes Alcohol Use Standard Drinks/Week Comments Yes 0 (1 standard drink = 0.6 oz pur e alcohol) social Sex and Gender Information Value Date Recorded Sex Assigned at Not on file Gender Identity Not on file Sexual Orientation Not on file Last Filed Vital Signs Vital Sign Reading Time Taken Comments Blood Pressure 115/69 10/24/2009 11:17 AM CDT Pulse 62 10/24/2009 11:17 AM CDT Temperature 37 C (98.6 F) 10/24/2009 9:20 AM CDT Respiratory Rate 16 10/24/2009 11:17 AM CDT Oxygen Saturation 99% 10/24/2009 11:17 AM CDT Inhaled Oxygen Concentration - - Weight 65.8 kg (145 lb) 10/24/2009 9:20 AM CDT Height 172.7 cm (5' 8 ) 10/24/2009 9:20 AM CDT Body Mass Index 22.05 10/24/2009 9:20 AM CDT
--- OUTSIDE RECORDS SUMMARY | 2024-06-11 10:45 | XMS_ITS | Referral Summary ---
Author Organization [facility] [address] [facility] [address] Address [address] [place] [address] Care Team Providers Care Voice Coach Name Role Phone Alexa Dougherty MD Primary Care Provider + Encounters Date Type Department Care Team Description 04/10/2024 1:30 PM SOCIAL WORK PROGRAM COORDINATOR Office Visit [facility] Cardiology [address] [facility] [address] [place] [address] Mirta Dominguez NP Coronary artery disease involving [place] coronary artery of [place] heart without angina pectoris (Primary Dx); History of non-ST elevation myocardial infarction (NSTEMI); History of percutaneous coronary intervention from Last 3 Months Allergies Active Allergy Reactions Criticality Noted Date Comments Venom-Wasp Swelling Medium 02/14/2024 Medications atorvastatin (LIPITOR) 40 mg tabletIndications :Coronary artery disease, unspecified vessel or lesion type, unspecified whether angina present, unspecified whether [place] or transplanted heart Take 2 tablets (80 mg total) by mouth daily 60 tablet 11 4 08/30/19 25 Active losartan (COZAAR) 25 mg tabletIndications :Coronary artery disease, unspecified vessel or lesion type, unspecified whether angina present, unspecified whether [place] or transplanted heart Take 1 tablet (25 [...] Diagnosed Date Coronary artery disease invo lving ge[place] coronary artery of ge[place] heart without angina pectoris 08/16/2023 History of percutaneous coronary intervention History of non-ST elevation myocardial infarctio n (NSTEMI) 08/16/2023 Hyperlipidemia 08/16/2023 Hypertension 08/16/2023 Social History Tobacco Use Types Packs/Day Years [...] on file Legal Sex Male 6:07 PM SOCIAL WORK PROGRAM COORDINATOR Gender Identity Not on file Sexual Orientation Not on file Last Filed Vital Signs Vital Sign Reading Time Taken Comments Blood Pressure 110/70 04/10/2024 1:31 PM SOCIAL WORK PROGRAM COORDINATOR Pulse 71 04/10/2024 1:31 PM SOCIAL WORK PROGRAM COORDINATOR Temperature 36.4 C (97.6 F) 02/14/2024 12:23 PM SOCIAL WORK PROGRAM COORDINATOR Respiratory Rate 15 02/14/2024 5:00 PM SOCIAL WORK PROGRAM COORDINATOR Oxygen Saturation 96% 04/10/2024 1:31 PM SOCIAL WORK PROGRAM COORDINATOR Inhaled Oxygen Concentration - - Weight 81.6 kg (180 lb) 04/10/2024 1:31 PM SOCIAL WORK PROGRAM COORDINATOR Height 170.2 cm (5' 7 ) 04/10/2024 1:31 PM SOCIAL WORK PROGRAM COORDINATOR Body Mass Index 28.19 04/10/2024 1:31 PM SOCIAL WORK PROGRAM COORDINATOR Plan of Treatment Not on file Insurance [facility] HMO/POS Care Teams Voice Coach Relationship Specialty Start Date End Date Alexa Dougherty MD [address] [place] [address] [address] PCP - General Family Medicine 08/16/23
--- OUTSIDE RECORDS SUMMARY | 2024-06-11 10:46 | XMS_ITS | Referral Summary ---
Author Organization [facility] Address [facility] [facility] [place] [address] Care Team Providers Care Commodity Loan Clerk Name Role Phone Unavailable Primary Care Provider Unavailabl e Source Comments [facility],non-owned Affiliates and Associated Physician Practices is amultiple site organization consisting of ambulatory clinics and hospital sitesin [place], [place], [place] and [place]. This disclosure is being madepursuant to the Care Everywhere program and may not contain all information available regarding this patient. Last updated 17.[facility] Allergies Active Allergy Reactions Criticality Noted Date Comments Aspirin 10/24/2009 Medications * Be aware that medications may not be up to date on this document. Always verify current medications with the patient. Medication Sig Dispensed Refills Start Date End Date Status methylPREDNISolone (MEDROL DOSEPAK) 4 MG tablet Take by mouth as directed. 21 0 10/24/2009 Active albuterol (PROVENTIL; VENTOLIN) 90 MCG/ACT inhaler Inhale 1-2 Puffs by mouth every 4 hours as needed for Shortness of Breath and Wheezing. 1 0 10/24/2009 Active Social History Tobacco Use Types Packs/Day Years [...] Mass Index 22.05 10/24/2009 9:20 AM CDT Plan of Treatment Not on file
--- OUTSIDE RECORDS SUMMARY | 2024-06-11 10:46 | XMS_ITS | CONTINUITY OF CARE DOCUMENT ---
Author Name attila aiken Address Unknown Organization [facility] Address [address] [place] [address] Phone [phone] Care Team Providers Care Supervisor Diagnostic Name Role Phone Sarwat BLACK, Zeke Unavailable [phone] TATUM PROCUREMENT INSPECTOR, DELORA Unavailable TATUM PROCUREMENT INSPECTOR, DELORA Unavailable PROBLEMS Condition Status Date Provider Notes Family History of Hypertension: active ? Zeke Fam MD Family History of Hypertension: completed - Zeke Fam MD Chest pain active Zeke Fam MD Chest pain completed - Zeke Fam MD HTN essential active Zeke Fam MD Tobacco abuse, quit active Fermin Eleazarte Sinus tachycardia active Zeke Fam MD Abnormal EKG - nml stress nu c 06/26 active Zeke Fam MD ENCOUNTERS Date Type Provider Location Encounter Diag nosis - In-person encounter Office Visit Zeke Fam MD [facility] Office - In-person encounter Office Visit Zeke Fam MD [place] [facility] Abnormal EKG - nml stress nuc 06/26 - In-person encounter Office Visit Zeke Fam MD [place] [facility] Abnormal EKG - nml stress nuc 06/26 - In-person encounter Office Visit Zeke Fam MD [facility] Sinus tachycardia - In-person encounter Office Visit Zeke Fam MD [facility] Family History of Hypertension:Chest painHTN essentialTobacco abuse, quit - In-person encounter Office Visit Zeke Fam MD [facility] Family History of Hypertension:Chest pain VITAL SIGNS Date Observation Value Provider Body Mass Index (Ratio) 29.19 kg/m2 Clara Fam MD blood pressure, cuff size large Oh radha [place] blood pressure, diastolic 116 mm[Hg] Oh radha [place] blood pressure, systolic 168 mm[Hg] [facility] steve [place] respiratory rate E&M 16 /min Charissa myers Hawkins oxygen saturation, oximetry 96 % Valarie Hawkins pulse rate 89 /min Valarie finney weight E&M 192 [lb_av] Valarie finney height E&M 68 [in_i] Valarie finney Body Mass Index (Ratio) 28.28 kg/m2 Mario Koehler blood pressure, cuff size large Ke rri Armaniuenechetna blood pressure, diastolic 92 mm[Hg] Ke rri Gruenenfheidy blood pressure, systolic 168 mm[Hg] Ker ri Armaniuenenfheidy oxygen saturation, oximetry 98 % Ira Brent respiratory rate E&M 16 /min Ira G irajenenfheidy pulse rate 90 /min Ira Grmalcolmnemaiae [facility] weight E&M 186 [lb_av] Ira Gruenenfe er height E&M 68 [in_i] Ira Gruenenfe [facility] Body Mass Index (Ratio) 28.43 kg/m2 Mario Koehler blood pressure, diastolic 70 mm[Hg] Derrick Chávez blood pressure, systolic 110 mm[Hg] Nelida Chávez oxygen saturation, oximetry 97 % Sherrie Chávez respiratory rate E&M 16 /min Jian Chávez pulse rate 82 /min Sherrie em weight E&M 187 [lb_av] Sherrie em height E&M 68 [in_i] Sherrie em Body Mass Index (Ratio) 28.89 kg/m2 Mario varela Kyte blood pressure, cuff size regular Andrey isty Anant blood pressure, diastolic 70 mm[Hg] Kr isty [place] blood pressure, systolic 140 mm[Hg] Kri sty Anant oxygen saturation, oximetry 98 % Denisse [place] pulse rate 109 /min Denisse [place] respiratory rate E&M 18 /min Densise Anant weight E&M 190 [lb_av] Denisse Anant height E&M 68 [in_i] Denisse Anant Body Mass Index (Ratio) 28.43 kg/m2 Mario varela Kyte blood pressure, cuff size regular Kr isty [place] blood pressure, diastolic 82 mm[Hg] Kr isty [place] blood pressure, systolic 140 mm[Hg] Kri sty [place] oxygen saturation, oximetry 98 % Denisse Anant pulse rate 90 /min Denisse Anant respiratory rate E&M 17 /min Denisse [place] weight E&M 187 [lb_av] Denisse [place] height E&M 68 [in_i] Denisse Anant Body Mass Index (Ratio) 27.55 kg/m2 Antonio Brennan blood pressure, diastolic 80 mm[Hg] Andrey Ny blood pressure, systolic 120 mm[Hg] Morro Ny blood pressure, resting Yes Darlene Chávez blood pressure, diastolic 96 mm[Hg] Derrick Chávez blood pressure, systolic 142 mm[Hg] Nelida Chávez oxygen saturation, oximetry 98 % Sherrie Chávez respiratory rate E&M 18 /min Jian Chávez pulse rate 80 /min Sherrie em weight E&M 181.2 [lb_av] Sherrie ramirez height E&M 68 [in_i] Sherrie em ALLERGIES Allergy Name Onset Date Reaction Criticality Status ASA High Criticality active HISTORY OF MEDICATION USE Medication Status Instructions Dates Provider Indications Com ments trazodone 50 mg tablet active Valarie Hawkins amlodipine 10 mg tablet active 1 tablet by mouth once a day Denissegretchen yN SOCIAL HISTORY Date Observation Value Provider social history reviewed E&M revi ewed - no changes required Zkee Fam MD social history E&M S moking History: Berenice amador is a former smoker. Zeke Fam MD smoking, year quit 2014 Valarie Hawkins number of years as a smoker 15 a Valarie Hawkins cigarette use yes Valarie Estelita castle smoking status Former smoker Valarie edmond social history E&M S moking History: P atient is a former smoker. Zeke Fam MD social history reviewed E&M revi ewed - no changes required Zeke Fam MD smoking, year quit 2014 Ira singh number of years as a smoker 15 a Ira Kennedy cigarette use yes Ira moody smoking status Former smoker Ira Myers nfelder social history E&M S moking History: P marjorie is a former smoker. Zeke Fam MD social history reviewed E&M revi ewed - no changes required Zeke Fam MD smoking, year quit 2014 Sherrie Johnstonenson number of years as a smoker 15 a Sherrie Chávez cigarette use yes Sherrie Preston enson smoking status Former smoker Sherrie Berry social history E&M S moking History: P atlexis is a former smoker. Zeke Fam MD social history reviewed E&M revi ewed - no changes required Zeke Fam MD smoking, year quit 2014 Denisse Bu sby number of years as a smoker 15 a Denisse Anant cigarette use yes Denisse Anant smoking status Former smoker Denisse Arlington social history E&M S moking History: P atlexis is a former smoker. Zeke Fam MD social history reviewed E&M revi ewed - no changes required Zeke Fam MD smoking, year quit 2014 Denisse Bu sby number of years as a smoker 15 a Denisse Anant cigarette use yes Denisse Anant smoking status Former smoker Denisse Anant number of grandchildren Zeke Fam MD social history reviewed E&M revi ewed - no changes required Zeke Fam MD number of years as a smoker 15 a Sherrie Chávez smoking, year quit 2014 Sherrie Johnstonenson cigarette use yes Sherrie Johnston enson smoking status Former smoker Sherrie Berry FAMILY HISTORY Family Member Condition Full Brother Family History of Hy pertension: Full Brother Family History of Di abetes: Mother Family History of Hy pertension: ADVANCE DIRECTIVES Name Date DISCUSSED - NO DECISION MADE TREATMENT PLAN Date Name Performer [id number],No recurrence . Zeke Fam MD [id number],S,H is BP is elevated today at 168/116. He has been to your office, and as per patient no mention of high BP was made. He is on amlodipine 10mg/day but is not entirely compliant with medications. He is due to see you this coming and will have another blood pressure check. We will continue amlodipine and compliance was encouraged. Zeke Fam MD [id number],C,H is BP is elevated today at 168/116. He is on amlodipine 10mg/day but is not entirely compliant with medications. Zeke Fam MD Cardiology:No recurrence. Catherine Fam MD Cardiology:His BP is elevated today at 168/116. He has been to your office, and as per patient no mention of high BP was made. He is on amlodipine 10mg/day but is not entirely compliant with medications. He is due to see you this coming and will have another blood pressure check. We will continue amlodipine and compliance was encouraged. Zeke Fam MD Cardiology:His BP is elevated today at 168/116. He is on amlodipine 10mg/day but is not entirely compliant with medications. Zeke Fam MD Cardiology Follow up :No recurrence. Stress test normal. The patient has been reassured. Fermin Koehler Cardiology Follow up :Resolved. Fermin Koehler Cardiology Follow up :Blood pressure elevated at 168/92. Patient did not take his medications this morning. Advised reduced sodium intake and routine monitoring of the blood pressure. We aim for blood pressure less than 130/80. Advised to call the office if BP consistently > 130/80. He continues on Amlodipine 10mg daily. Fermin Koehler Cardiology Follow up :Stress test today with normal perfusion. The patient has been reassured. Fermin Cardiology:Effort re lated chest pain with EKG changes. Will check stress test. Fermin Cardiology:Resolved. EKG with sinus rhythm rates in the 80s. Fermin Cardiology:Blood pressure contro l is satisfactory. Fermin Cardiology:Abnormal EKG with ST-T changes in a patient with risk factors for CAD, will check stress test and echocardiogram. Will also request labs from your office. [facility]:No recurrence. [facility]:Blood pre ssure elevated at 140/70. He will monitor his blood pressure for the next two weeks and call with the numbers. Advised reduced sodium intake and routine monitoring of the blood pressure. We aim for less than 130/80. If his blood pressure is consistently above 130/80, will adjust medications. [facility] Cardiology:Unclear e tiology. Will have him monitor his heart rate and blood pressure for the next two weeks and call with the numbers. If his heart rate remains elevated, he may benefit from a beta drew. [facility]:Blood pre ssure elevated at 140/70. Advised to monitor his blood pressure regularly and call our office if consistently above 130/80. Changes to antihypertensives will be made as needed. [facility] Cardiology:No recurr ence. His stress test last year was normal. the patient has been reassured. [facility] Cardiology:Sudden on set of pain radiating to his back and lasted a little over 45minutes. It has now resolved. His troponins in the ER were normal. Still has some chest soreness. This is likely musculoskeletal; his peripheral pulses are palpable and equal and we will arrange for CT chest with contrast to rule out aortic dissection. Will also check echocardiogram and stress test. EKG shows sinus rhythm with nonspecific ST and T wave abnormalities. Zeke Fam MD Date Name Stress Exercise Card iolite Complete Echo CT Chest with,withou t contrast STR - Routine Complete Echo HISTORY OF PROCEDURES Procedure Date Procedure Name Provider Procedure Notes S tatus EKG Zeke Fam MD complet ed EKG Zeke Fam MD complet ed EKG Zeke Fam MD complet ed EKG Zeke Fam MD complet ed Stress EKG Zeke Fam MD complet ed EKG Zeke Fam MD complet ed
--- OUTSIDE RECORDS SUMMARY | 2024-06-11 10:46 | XMS_ITS | Clinical Summary ---
Author Organization [facility] [employer] Address [facility] [facility] [place] [address] Care Team Providers Care Examiner Of Currency Name Role Phone Unavailable Primary Care Provider Unavailabl e Source Comments [facility],non-owned Affiliates and Associated Physician Practices is amultiple site organization consisting of ambulatory clinics and hospital sitesin [place], [place], [place] and [place]. This disclosure is being madepursuant to the Care Everywhere program and may not contain all information available regarding this patient. Last updated 17.[facility] [employer] Allergies Active Allergy Reactions Criticality Noted Date Comments Aspirin 10/24/2009 Medications * Be aware that medications may not be up to date on this document. Alwaysverify current medications with the patient. Medication Sig [...] 10/24/2009 9:20 AM CDT Plan of Treatment Health Maintenance Due Date Last Done Comments COLOGUARD (AGES 45-75) - COL ON CA SCREENING 1978 COLON MONITORING 1978 COLONOSCOPY - COLON CA SCREENING 1978 CT COLONOGRAPHY - COLON CA SCREENING 1978 Colorectal Cancer Screening 1978 FIT - COLON CA SCREENING 1978 FLEX SIG - COLON CA SCREENING 1978 LIPID TESTING 1978 HIV SCREENING 1993 HEPATITIS C SCREENING 11/18/1996 DTAP/TDAP/TD VACCINES (1 - Tdap) 1997 HEPATITIS B VACCINE (1 of 3 - 19+ 3-dose series) 1997 COVID-19 VACCINE ( - 2023-2 5 season) 2023 INFLUENZA VACCINE (#1) 2023 DEPRESSION SCREENING 04/08/2024 ZOSTER VACCINE (1 of 2) 2028 HIB VACCINE Aged Out No longer eligi ble based on patient's age to complete this topic HPV VACCINE Aged Out No longer eligi ble based on patient's age to complete this topic MENINGOCOCCAL (Group B) VACCINE Aged Out No longer eligible based on patient's age to complete this topic MENINGOCOCCAL VACCINE Aged Out No teddy nika eligible based on patient's age to complete this topic PNEUMOCOCCAL VACCINE Aged Out No long er eligible based on patient's age to complete this topic
--- OUTSIDE RECORDS SUMMARY | 2024-06-11 10:46 | XMS_ITS | Data Portability ---
Author Organization [place] - [facility], Main Office Address [address] [place] [address] Care Team Providers Care Curriculum Advisory Teacher Name Role Phone EASTMANADAMPIOTR Primary Care Provider [phone] Assessment Encounter Date Assessment Date Assessment LastModified by Organization Details LastModified Time 07/10/2022 07/10/2022 Diastasis rectus. No hernias appreciated on exam. No abdominal tenderness. Recommend core exercises and f/u PRN. No indication for surgical intervention. [email or web address] Not available 07/10/2022 11:42:40 03/10/2024 03/10/2024 CRC screening requesting colonoscopy, on brilinta. Will postpone until on brilinta 1 year. [email or web address] Not available 03/10/2024 15:53:54 Plan of Treatment Reminders Order Date Submit Date Provider Last Modified By Organization Details Last Modified Time Details Appointments None recorded. Lab vitamin D, 25-hydroxy, total, serum 2023 024 [email or web address] 7 [facility] (Lab), [address] [place], [address], 4 10:47:30 lipid panel, serum 2023 024 [email or web address] 477 [facility] (Lab), [address] [place], [address], 4 10:47:29 hepatic function panel, serum 20232 024 [email or web address] 477 [facility] (Lab), [address] [place], [address], 4 10:47:30 CBC w/ auto diff [address] (Lab), [address] [place], [address], 4 10:47:30 hepatitis C Ab, serum [address] (Lab), [address] [place], [address], 4 10:47:30 [email or web address] obin, total, blood [address] (Lab), [address] [place], [address], 4 10:47:30 CMP, serum or plasma [address] (Lab), [address] [place], [address], 4 10:47:30 PSA, serum or plasma [email or web address] (Lab), [address] [place], [address], 3 08:28:58 TSH, serum or plasma [email or web address] (Lab), [address] [place], [address], 3 08:28:58 lipid panel, serum [email or web address] (Lab), [address] [place], [address], 3 08:28:58 urinalysis, complete [email or web address] [place] [address] (Lab), [address] [place], [address], 3 08:28:58 HbA1c (hemoglobin A1c), blood [email or web address] (Lab), [address] [place], [address], 3 08:28:59 CMP, serum or plasma [email or web address] (Lab), [address] [place], [address], 3 08:28:59 CBC [email or web address] (Lab), [address] [place], [address], 3 08:28:59 Referral gastroenter ologist referral - Please call patient to schedule an appointment . Patient would like to have it done this year. Thank you. 2023 024 [email or web address] Rebel Hernández MD, [address] [facility], [facility], [place], [address], 4 08:57:38 general surgeon referral - . Please call pt to schedule appt. Thank you 2022 023 [email or web address] Linda MD, [address] [facility], [address], [place], [address], 3 19:59:41 Procedures None recorded. Surgeries None recorded. Imaging None recorded. Medication Orders triamcinolo ne acetonide 0.5 % topical ointment [address] [facility] #[id number], [address] , [place], [address], 4 12:37:26 Patient TargetsNo targets recorded. Patient InstructionsNo instructions recorded. Reason for Referral General Surgeon Referral for Hernia of anterior abdominal wall . Please call pt to schedule appt. 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 Patient would like to have it done this year. Thank you. Referring Physician: Linda Guerrero [facility], Encounter Date: 03/02/2024 Results Created Date Observation Date Name Description Value Unit Range Abnormal Flag Note LastModifiedBy Organization Detail LastModifiedTime 06/13/1905/08/2022 CT, chest + abdom en, w/o contr ast No observ ation record ed. [email or web address] Not Available 06/13 18:16:09 08/08/19 24 08/08/2023 XR, chest No observ ation record ed. [email or web address] [address], [address], 08/24/2023 20:23:02 02/18/20 24 02/17/2024 imagi ng/di agnos tic resul t No observ ation record ed. [email or web address] [address], [place], [address], 02/19/2024 12:02:12 Result Notes None recorded. Problems Name Problem SNOMED Code Status Onset Date Resolution Date Notes Provider Name and Address Organization Details Recorded Time Abnormal testosterone 308170628 Active Not Available [facility] 3 09:16:51 Impacted cerumen 13167702 Active Not Available [facility] 3 09:16:51 Acute situational disturbance 398434360 Active Not Available [facility] 3 09:16:51 Strain of Achilles tendon 74488808 Active Not Available [facility] 3 09:16:51 Ankle pain 177465579 Active 2018 Not Available [facility] 3 09:16:51 Sprain of lateral ligament of ankle joint 912323520 Active 2018 Not Available [facility] 3 09:16:51 Laceration - injury 408177864 Active Not Available [facility] 3 09:16:52 Multiple nodules of lung 154533837 Active 2018 Not Available [facility] 3 09:16:52 Verruca vulgaris 39857017 Active Not Available [facility] 3 09:16:52 Hernia of anterior abdominal wall 715765923 Active 2022 KATHERIN Fernandez [address], [address], [place], [address] , [employer] 3 08:41:04 Anticipatory grief 99757026 Active 2022 KATHERIN Fernandez [address], [address], [place], [address] , [employer] 3 13:40:37 Diastasis recti 12397821 Active 2022 Tl hansen MD [address], [address], [place], [address] , [employer] 3 13:32:56 Contact dermatitis 29599558 Active 2023 GIULIA Chand [address], [address], [place], [address] , [employer] 4 12:36:42 Hyperlipidemi a 37896306 Active 2023 GIULIA Chand [address], [address], [place], [address] , [facility] [employer] 4 12:37:50 Essential hypertension 56390762 Active 2023 GIULIA Chand [address], [address], [place], [address] , [employer] 4 12:38:00 Problem Notes None recorded. Procedures Surgical History Date Name Laterality Status Provider Name and Address Organization Details Recorded Time other completed Ban Condon MA [employer] [facility] 03/10/2024 15:21:20 Imaging Results Imaging Date Name Status LastModified by Organiz ation Details LastModified Time 05/08/2022 CT, chest + abdomen, w/o contrast completed [email or web address] Information not available 06/13/2022 18:16:09 08/08/2023 XR, chest completed [email or web address] [facility] [address] [facility] [address], [place], [address], 08/24/2023 20:23:02 02/17/2024 imaging/diagn ostic result completed [email or web address] [facility] [address], [place], [address], 02/19/2024 12:02:12 Procedure Notes None recorded. Medical Equipment None Reported. Allergies Allergen ID Allergen Name Allergen Category Reaction Reaction Severity Criticality Documentation Date Start Date Code Code System Note Provider Name and Address Organization Details Recorded Time 94727 wasp venoms environme nt hives Not available Not available 06/06/2022 28972 RxNorm Not Available [facility] 3 09:19:32 34383 aspirin medicatio n hives Not available Not available 06/06/2022 1191 RxNorm Bhavani Galaviz RN null, [place] [facility] 4 12:27:29 Medications Name Sig Start Date Stop Date Status Note LastModified by Organization Details LastModified Time amoxicill in 500 mg capsule active Not Available Not Available Not Available atorvasta tin 40 mg tablet TAKE 2 TABLETS BY MOUTH EVERY DAY active Not Available Not Available No t Available neomycin- polymyxin -hydrocor t 3.5 mg/mL-10, 000 unit/mL-1 % ear solution 10/18 completed Not Available Not Available Not Available trazodone 50 mg tablet TAKE 1 TABLET BY MOUTH EVERY DAY FOR 30 DAYS 02/18 completed Not Available Not Available Not Available metoprolo l succinate ER 50 mg tablet,ex tended release 24 hr TAKE 1 TABLET BY MOUTH EVERY MORNING active Not Available Not Available No t Available hydrocodo ne 5 mg-acetam inophen 325 mg tablet active Not Available Not Available Not Available ondansetr on HCl 8 mg tablet TAKE 1 TABLET BY MOUTH EVERY 8 HOURS NEEDED 02/18 completed Not Available Not Available Not Available Medrol (Philip) 4 mg tablets in a dose pack Take per package directio ns 04/16 completed Not Available Not Available Not Available prednison e 20 mg tablet TAKE 2 TABLETS BY MOUTH DAILY FOR 3 DAYS THEN 1 TABLET DAILY FOR 3 DAYS 02/18 completed Not Available Not Available Not Available triamcino lone acetonide 0.5 % topical ointment APPLY THIN COAT TO AFFECTED AREA TWICE A DAY active Not Available Not Available No t Available aspirin 81 mg tablet,de layed release TAKE 1 TABLET (81 MG TOTAL) BY MOUTH EVERY MORNING active Not Available Not Available No t Available tramadol 50 mg tablet Take 1 tablet 3 times a day by oral route for 10 days. 04/16 completed Not Available Not Available Not Available Depo-Medr ol 80 mg/mL suspensio n for injection Take 1 mL by injectio n route. 04/16 completed Not Available Not Available Not Available meloxicam 7.5 mg tablet active Not Available Not Available Not Available amoxicill in 875 mg tablet TAKE 1 TABLET BY MOUTH EVERY 12 HOURS FOR 10 DAYS 02/18 completed Not Available Not Available Not Available famotidin e 20 mg tablet TAKE 1 TABLET BY MOUTH TWICE A DAY 02/18 completed Not Available Not Available Not Available amlodipin e 10 mg tablet TAKE 1 TABLET BY MOUTH ONCE DAILY 02/18 completed Not Available Not Available Not Available erythromy reina 5 mg/gram (0.5 %) eye ointment APPLY 1 CM RIBBON INTO THE LOWER CONJUNCT IVAL SAC(S) IN THE AFFECTED EYE(S) BY OPHTHALM IC ROUTE 3 TIMES PER DAY active Not Available Not Available No t Available triamcino lone acetonide 0.1 % topical ointment APPLY A THIN LAYER TO AFFECTED AREA TWICE A DAY NEEDED FOR ECZEMA 02/18 completed Not Available Not Available Not Available losartan 25 mg tablet TAKE 1 TABLET (25 MG TOTAL) BY MOUTH DAILY. active Not Available Not Available No t Available Ear Drops (carbamid e peroxide) 6.5 % INSTILL 10 DROPS INTO THE LEFT EAR 2 TIMES PER DAY FOR 4 DAYS 02/18 completed Not Available Not Available Not Available pyridoxin e (vitamin B6) 50 mg tablet TAKE 1 TABLET BY MOUTH EVERY DAY active Not Available Not Available No t Available epinephri ne 0.3 mg/0.3 mL injection , auto-inje ctor 1 injectio n x 1 prn allergic reaction active Not Available Not Available No t Available Ventolin HFA 90 mcg/actua tion aerosol inhaler INHALE 2 PUFFS BY MOUTH EVERY 4 TO 6 HOURS NEEDED 02/18 completed Not Available Not Available Not Available EpiPen 08/14 completed Not Available Not Available Not Available AndroGel 08/14 completed stopped bc of risk exposure to family/c hildren Not Available Not Available Not Available Brilinta 90 mg tablet TAKE 1 TABLET BY MOUTH EVERY 12 HOURS. active Not Available Not Available No t Available Vitals Date Recorded Body height Body mass index (BMI) Body weight Body temperature Heart rate Oxygen saturation Oxygen saturation in Arterial blood by Pulse oximetry Systolic blood pressure Diastolic blood pressure Provider Name and Address Organization Details Last Updated DateTime 3 172.72 cm 28.9 kg/m2 78101.5 5 g 97.5 [degF] 86 /min 97 % 97 % 128 mm[Hg] 82 mm[Hg] Kimberly Dos Santos MA [facility] 3 08:14:41 Date Recorded Body height Body mass index (BMI) Body weight Respiratory rate Heart rate Body temperature Oxygen saturation Oxygen saturation in Arterial blood by Pulse oximetry Systolic blood pressure Diastolic blood pressure Provider Name and Address Organization Details Last Updated DateTime 3 172.72 cm 28.9 kg/m2 05408.5 5 g 16 /min 80 /min 97.8 [degF] 97 % 97 % 130 mm[Hg] 76 mm[Hg] Michelle Pierce [facility] [employer] [facility] 3 11:13:29 Date Recorded Body weight Body temperature Heart rate Oxygen saturation Oxygen saturation in Arterial blood by Pulse oximetry Systolic blood pressure Diastolic blood pressure Provider Name and Address Organization Details Last Updated DateTime 4 09034.2 6 g 97.2 [degF] 78 /min 98 % 98 % 118 mm[Hg] 66 mm[Hg] Nancy Saldana RN [facility] [employer] [facility] 4 11:31:50 Date Recorded Body height Body mass index (BMI) Body weight Body temperature Heart rate Oxygen saturation Oxygen saturation in Arterial blood by Pulse oximetry Systolic blood pressure Diastolic blood pressure Provider Name and Address Organization Details Last Updated DateTime 4 170.18 cm 28.2 kg/m2 37083.6 3 g 98.2 [degF] 69 /min 98 % 98 % 122 mm[Hg] 82 mm[Hg] Bhavani Galaviz RN [facility] [email or web address] 4 12:27:01 Date Recorded Body height Body mass index (BMI) Body weight Body temperature Heart rate Systolic blood pressure Diastolic blood pressure Provider Name and Address Organization Details Last Updated DateTime 4 170.18 cm 28.2 kg/m2 32326.6 3 g 98.6 [degF] 66 /min 120 mm[Hg] 70 mm[Hg] Ban Condon MA [facility] [email or web address] 4 15:05:24 Social History Question Answer Notes LastModified by Ymagis Details LastModified Time Tobacco Smoking Status Former Smoker Ban Condon MA [facility] [email or web address] 07/10/2022 10:37:02 What Is Your Level Of Alcohol Consumption? Occasional [email or web address] Information not available 06/19/2022 What Is Your Level Of Caffeine Consumption? Moderate [email or web address] Information not available 06/19/2022 In The 14 Days Before Symptom Onset, Have You Had Close Contact With A Laboratory-confir med COVID-19 While That Case Was Ill? No [email or web address] Information not available 07/10/2022 In The 14 Days Before Symptom Onset, Have You Had Close Contact With A Person Who Is Under Investigation For COVID-19 While That Person Was Ill? No Information not available 07/10/2022 What Type Of Diet Are You Following? REGULAR [email or web address] Information not available 06/19/2022 When Did You Quit Smoking? 6-10yearssince lastcigarette Information not available 07/10/2022 Do You Use Any Illicit Or Recreational Drugs? No Information not available 07/10/2022 Have You Recently Traveled Abroad? No Information not available 07/10/2022 Do You Have Any Dietary Restrictions? No Information not available 07/10/2022 Sex: Unknown Functional Status Question Answer Note LastModified by Organizat ion Details LastModified Time What is your exercise level? Occasional [email or web address] Information not available 06/19/2022 Mental Status None recorded. Family History Relationship Description Onset Age of this Age Resolved Age Notes LastModified by Organization Details LastModified Time Brother Diabetes mellitus [email or web address] [id number] Not available 06/06/2022 09:14:22 Brother Hypertensive disorder [email or web address] [id number] Not available 06/06/2022 09:14:22 Mother Hypertensive disorder [email or web address].265 [id number] Not available 06/06/2022 09:14:22 Sister Hypertensive disorder [email or web address] [id number] Not available 06/06/2022 09:14:22 Paternal Aunt Family history of malignant neoplasm [email or web address] Not available 2023 14:57:28 Notes:stroke - father Medical History Condition Response HYPERTENSION Y Immunizations Vaccine Type Date Status Note Provider Nam e and Address Organization Details Recorded Time COVID-19, mRNA, LNP-S, PF, 30 mcg/0.3 mL dose 09/03/2020 completed Not Available [facility] 3 09:19:28 COVID-19, mRNA, LNP-S, PF, 30 mcg/0.3 mL dose 08/13/2020 completed Not Available [facility] 3 09:19:29 Tdap 10/04/2016 completed Not Available [facility] 06/06/2022 09:19:29 Past Encounters Encounter ID Performer Location Encounter Start Date Encounter Closed Date Diagnosis/Indication Diagnosis SNOMED-CT Code Diagnosis ICD10 Code Diagnosis Note [id number] [facility] [address] [place] [address] 06/09/2021 00:00:00 06/09/2021 13:39:06 [id number] [facility] [address] [place] [address] 09/14/2021 00:00:00 09/14/2021 08:56:09 [id number] [facility] [address] [facility] [address] [place] [address] 09/28/2021 00:00:00 09/28/2021 13:55:30 [id number] [facility] [place] [address] [facility] [address] [place] [address] 04/05/2022 00:00:00 04/05/2022 19:57:53 [id number] KATHERIN Fernandez [facility] Primary Care [facility] [place] [address] [facility] [address] [place] [address] 06/19/2022 08:05:22 06/19/2022 08:56:17 Hernia of anterior abdominal wall 702993361 K43.9 ChronicUnk nown statusWill refer back to gen surgery for further evaluation /tx. Adult heal th examination 224117719 Z13.29 Z13.220 Z13.89 Z13.1 Z00.01 Adult Health Exam--Due for routine labs (CBC, CMP, Lipids, HgA1C, TSH, UA, PSA).--PSA check at 40yo-order ed--Colon screening at 45yo--Tdap recommende d q 10 years--Flu recommende d yearly--[place] VID-19 recommende d--Encoura ged yearly dental, vision, hearing screenings Anticipatory grief 20069 004 F43.21 Pts has terminal colo-recta l cancer. Encouraged pt to consider grief counseling . [id number] Tl hansen MD [facility] General Surgery [address] [facility], [address] [place] [address] 07/10/2022 10:35:42 07/10/2022 12:04:01 Diastasis recti 24174169 M62.08 [id number] GIULIA Chand [facility] Primary Care [address] [place] [address] 02/19/2024 11:25:20 02/19/2024 11:47:54 Transition of care from emergency department to self-care [id number] 36510 Z76.89 Doing well at this time.Will follow neurologis t as directed. [id number] GIULIA Chand [facility] Primary Care [facility] [place] [address] [facility] [address] [place] [address] 03/02/2024 12:15:54 03/02/2024 12:43:27 Adult health examination 379368013 Z00.00 Discussed medication compliance and routine follow up.Discuss ed healthy diet and routine exercise.Gentry ramoswed vaccine records and made recommenda tions as needed.Enc ouraged annual eye and dental exams, as well as twice yearly dental cleanings. Will check screening labs as listed below. Contact dermatitis 42674 004 L25.9 Hyperlipidemia 86646452 E78.5 Will check labs as listed below. Essential hypertension 30231152 I10 122/82Disc ussed DASH diet and medication compliance . Screening for malignant neoplasm of colon 755538833 Z12.11 Diabetes m ellitus screening 276814556 Z13.1 Will check labs as listed below. Hepatitis C screening 41 9764538 Z11.59 Will check labs as listed below. Body mass index 25-29 - overweight 401918843 Z68.28 BMI: 28.2Discus sed healthy diet and routine exercise. [id number] Rebel Hernández MD [facility] General Surgery [address] [facility], [facility] [address] [place] [address] 03/10/2024 14:56:48 03/10/2024 15:55:13 Health Concerns Section Related Observation LastModified by Organization Detai ls LastModified Time None Recorded Concern Status LastModified by Organization Details LastModified Time None Recorded Advance Directives Directive None Recorded Payers Encounter Date Sequence Insurance Name Policy Number Policy Cameron Covered Member ID Cameron Member ID Guarantor Name 06/19/2022 1 [employer] - CHOICE (POS II) [id number] Kaleb Evans [id number] Kaleb Fierroers 07/10/2022 1 [employer] - CHOICE (POS II) [id number] Kaleb Fierroers [id number] Kaleb Fierroers 02/19/2024 1 [employer] - CHOICE (POS II) [id number] Kaleb Evans [id number] Kaleb Fierroers 03/02/2024 1 [employer] - CHOICE (POS II) [id number] Kaleb Evans [id number] Kaleb Fierroers 03/10/2024 1 [employer] - CHOICE (POS II) [id number] Kaleb Evans [id number] Kaleb Evans Notes Date Note Type Note Provider Name and Address Organization Details Recorded Time 06/19/2022 text/html 1. Pt in office with son for annual well visit.2. Pt states he still hasn't gotten a call from the surgeon to fix his hernia.2. Pts has colon cancer and has only been given about a year to live. KATHERIN Fernandez [address], [place], [address], [employer] 06/19/2022 13:43:33 07/10/2022 text/html Patient presents to clinic to discuss possible ventral hernia. Reports some nausea intermittently, had endoscopy which r/o hiatal hernia and was unremarkable. CT scan did not indicate any ventral hernias. No vomiting. No abdominal pain. No fevers. No changes in appetite or diet. Tl Parikh MD [address], [place], [address], [facility] 07/10/2022 13:33:02 02/19/2024 text/html Patient is a 43 year old male that presents to the office for ER follow-up. Patient reports he went to [facility] last Saturday for light headedness and clammy. Patient doesn't know what he was diagnosed with, said his tests were normal. Patient was working on a stove and symptoms started when he stood up. Patient has not had any additional episodes since ER visit. Patient reports Saturday he went to [facility] for left arm and bilateral leg numbness and tingling. Patient had imaging done and is scheduled to follow up with a neurologist today for nerve compression in cervical spine. GIULIA Chand [address], [place], [address], [facility] 02/25/2024 19:13:44 03/02/2024 text/html Patient is a 43 year old male that presents to the office for annual wellness. Patient reports he is doing well overall, has not had any issues since his last office follow up. Patient went to Neurology last week, is scheduled for a nerve test in April. Patient denies any changes to his treatment plan at this time. Denies chest pain and shortness of breath. labs-orderedcolono scopy- orderedFlu-decline [id number] KATHERIN Chand-Nara [address] [facility], [facility] [address], [place], [address], [facility] 03/09/2024 21:40:46 03/10/2024 text/html 43yo M for screening CRC. Asymptomatic, h/o OR 08/29 s/p stents, on Chris Hernández MD [address] [facility], [facility] [address], [place], [address], [facility] 03/10/2024 15:53:59
--- NOTE | 2024-06-11 12:00 | NEURO_ITS ---
Clinical note: The patient is 43-year-old with history of paresthesias in left upper limb. No history of diabetes mellitus or major injuries reported. On a brief neurological examination no focal muscle wasting or fasciculations were noted. The results of the study a given below. Summary of findings: 1. Left median motor distal latency , amplitude and conduction velocity within normal limits. 2. Left ulnar motor distal latency amplitude and conduction velocities within normal limits. There is no focal slowing noted across the elbow. However on the left ulnar inching study mild focal segmental slowing was noted. 3. Left median and ulnar motor studies while recording over 2nd numerical and 2nd interossei show distal latencies comparable. 4. Left median palmar sensory distal latencies were mildly prolonged but amplitude was normal conduction velocity mildly decreased. Left ulnar palmar and digital and left radial sensory distal latencies amplitude and conduction velocity within normal limits. 5. EMG examination was performed in left upper limb In the distribution of C5-T1 roots.. No denervation changes were seen. Motor unit amplitude, recruitment and duration were within acceptable normal limits. Impression: 1. Mild left carpal tunnel syndrome . No denervation changes are seen in the left abductor pollicis brevis. 2. Left ulnar motor inching study shows mild focal slowing across the elbow raising possibility of a minimal left ulnar neuropathy at elbow. Clinical correlation is recommended. No denervation changes seen in the ulnar nerve distribution forearm or hand at this time. Remainder of the findings are considered within acceptable normal limits. Lianet Viramontes MD,FAAN,FAANEM Neurologist ? Nerve Conduction Studie s Motor Nerve Results? Latency Amplitude F-Lat Segment Distance CV Comment Site (ms) (mV) (ms) (cm) (m/s) Left Med/Ulnar(Lum-INT) Motor ? Median (Lumb I) Wrist 3.1 2.6 ? Ulnar (Dorsal Interossei IV) Wrist 3.1 7.7 Left Median (APB) Motor Wrist 4.2 6.9 Elbow 8.0 6.8 Elbow-Wrist 215 57 Left Ulnar (ADM) Motor Wrist 3.2 8.6 Bel Elbow 6.2 8.3 Bel Elbow-Wrist 185 62 Abv Elbow 7.6 8.4 Abv Elbow-Bel Elbow 80 57 Left Ulnar 2 Ch. (ADM/FDI) Motor Wrist 3.2 8.6 Bel Elbow 6.2 8.3 Bel Elbow-Wrist 185 62 Abv Elbow 7.6 8.4 Abv Elbow-Bel Elbow 80 57 Left Ulnar-Inching (ADM) Motor Wrist 3.2 8.6 Elb-6 6.1 8.2 Elb-5 6.8 7.8 Elb-5-Elb-6 - - Elb-4 7.7 8.6 Elb-4-Elb-5 - - Elb-3 8.1 8.6 Elb-3-Elb-4 - - Elb-2 8.4 8.7 Elb-2-Elb-3 - - Sensory Nerve Results ? Latency (Peak) Amplitude (P-P) Segment Distance CV Comment Site (ms) (?V) (cm) (m/s) Left Median DigIII Sensory Wrist-Dig III 4.0 57 Wrist-Dig III 140 35 Left Median-Ulnar Palmar Sensory ? Median Palm-Wrist 2.3 129 Palm-Wrist 80 35 ? Ulnar Palm-Wrist 1.75 71 Palm-Wrist 80 46 Left Radial Sensory Forearm-Wrist 2.1 84 Forearm-Wrist 100 48 Left Ulnar Sensory Wrist-Dig V 3.2 52 Wrist-Dig V 145 45 Electromyography ?Side Muscle Nerve Ins Act Fibs Psw Amp Dur Recrt Comment Left Deltoid Axillary Nml Nml Nml Nml Nml Nml Left Triceps Radial Nml Nml Nml Nml Nml Nml Left ExtCarUln Radial (Post Int) Nml Nml Nml Nml Nml Nml Left Ext Indicis Radial (Post Int) Nml Nml Nml Nml Nml Nml Left FlexPolLong Median (Ant Int) Nml Nml Nml Nml Nml Nml Left 1stDorInt Ulnar Nml Nml Nml Nml Nml Nml Left Abd Poll Brev Median Nml Nml Nml Nml Nml Nml Left FlexDigProf Ulnar Nml Nml Nml Nml Nml Nml Left FlexCarRad Median Nml Nml Nml Nml Nml Nml Left BrachioRad Radial Nml Nml Nml Nml Nml Nml MTDD
== END 2024-06-11 09:43 | disposition home or self-care (01) ==
PROVIDERS: PCP Nurse Practitioner Family; Visit Provider Psychiatry & Neurology Neurology
DX: R20.2 Paresthesia of skin (principal); E11.9 Type 2 diabetes mellitus without complications; G56.02 Carpal tunnel syndrome, left upper limb
CPT/HCPCS: 95886; 95910

== ENCOUNTER 2024-07-11 00:14 | Emergency (ER) | payer OTHER, SELFPAY ==
--- NOTE | ~2024-07-11 | CT_ITS ---
EXAMINATION: CT chest abdomen pelvis w con DATE: 07/11/2024 02:33 INDICATION: Chest pain radiating to the bilateral arms. Transaminitis. TECHNIQUE: Computed tomography (CT) of the chest, abdomen, and pelvis was performed with 100 mL Omnip aque-350 intravenous contrast. Automated exposure control and iterative reconstruction technique were employed. The dose-length product was 690.77 mGy-cm. COMPARISON: None FINDINGS: CHEST CT: Mild dependent atelectasis in bilateral lower lobes. Small bleb at the right apex. No pneumonia, pulm onary edema, pleural effusion or pneumothorax. Heart size is normal. Suggestion of some atherosclerot ic coronary artery calcification also suspicious for motion and the presence of intravascular contras t. No pericardial effusion. Thoracic aorta is normal in caliber with no dissection. No pathologically enlarged thoracic lymphadenopathy. ABDOMEN/PELVIS CT: 2.2 cm low-attenuation hepatic lesion with lobular margins. No intra-axial hepatic biliary ductal dil ation. Gallbladder, pancreas, bilateral adrenal glands and kidneys are normal. A couple subcentimeter low-attenuation splenic cysts bowels are normal. The appendix is not visualized. No pericecal inflam matory change to suggest acute appendicitis. Mild diffuse bladder wall thickening with minimal strand ing surrounding fat raising some suspicion for cystitis. No free intraperitoneal gas or fluid. No pat hologically enlarged abdominal or pelvic lymphadenopathy. Moderate to severe lower lumbar and moderat e lower thoracic spondylosis. IMPRESSION: 1. Diffuse bladder wall thickening with minimal surrounding inflammatory stranding suspicious for cys titis. Correlate with urinalysis. 2. Indeterminate 2.2 cm hepatic lesion. Recommend further evaluation with pre and postcontrast MRI. Kathy Christopher discussed these findings with Dr. Polk at 8:40 AM. 3. No acute cardiopulmonary disease. Reviewed, dictated and finalized at location A. IMPRESSION: 1. Diffuse bladder wall thickening with minimal surrounding inflammatory strand ing suspicious for cystitis. Correlate with urinalysis. 2. Indeterminate 2.2 cm hepatic lesion. Recommend further evaluation with pre a nd postcontrast MRI. Dr. Christopher discussed these findings with Dr. Polk at 8 :40 AM. 3. No acute cardiopulmonary disease.
--- NOTE | ~2024-07-11 | XR_ITS ---
EXAMINATION: XR chest 1V portable DATE: 07/11/2024 00:58 INDICATION: Chest pain TECHNIQUE: frontal view of the chest was obtained. COMPARISON: Chest radiograph dated 02/17/2024 FINDINGS: The lungs remain clear with no focal airspace opacities, pulmonary edema, pleural effusion or pneumot horax. The cardiomediastinal silhouette is normal. Visualized bones and soft tissues are unremarkable . IMPRESSION: 1. No acute cardiopulmonary disease. Reviewed, dictated and finalized at location A.
--- OUTSIDE RECORDS SUMMARY | 2024-07-11 00:16 | XMS_ITS | Clinical Summary ---
Author Organization [facility] [address] Address [address] [place] [address] Care Team Providers Care Motor Equipment Captain Name Role Phone Alexa Dougherty MD Primary Care Provider + Allergies Active Allergy Reactions Criticality Noted Date Comments Venom-Wasp Swelling Medium 02/14/2024 Medications atorvastatin (LIPITOR) 40 mg tabletIndications :Coronary artery disease, unspecified vessel or lesion type, unspecified whether angina present, unspecified whether [place] or transplanted heart Take 2 tablets (80 mg total) by mouth daily 60 tablet 11 4 08/30/19 25 Active losartan (COZAAR) 25 mg tabletIndications :Coronary artery disease, unspecified vessel or lesion type, unspecified whether angina present, unspecified whether [place] or transplanted heart Take 1 tablet (25 [...] Diagnosed Date Coronary artery disease invo lving [place] coronary artery of [place] heart without angina pectoris 08/16/2023 History of percutaneous coronary intervention History of non-ST elevation myocardial infarctio n (NSTEMI) 08/16/2023 Hyperlipidemia 08/16/2023 Hypertension 08/16/2023 Surgical History Surgery Date Site/Laterality Comments CARDIAC [...] on file Legal Sex Male 6:07 PM [employer] Gender Identity Not on file Sexual Orientation Not on file Obstetrics History Last Filed Vital Signs Vital Sign Reading Time Taken Comments Blood Pressure 110/70 04/10/2024 1:31 PM [employer] Pulse 71 04/10/2024 1:31 PM [employer] Temperature 36.4 C (97.6 F) 02/14/2024 12:23 PM [employer] [place] Respiratory Rate 15 02/14/2024 5:00 PM [employer] [place] Oxygen Saturation 96% 04/10/2024 1:31 PM [employer] [place] Inhaled Oxygen Concentration - - Weight 81.6 kg (180 lb) 04/10/2024 1:31 PM [employer] [place] Height 170.2 cm (5' 7 ) 04/10/2024 1:31 PM [employer] [place] Body Mass Index 28.19 04/10/2024 1:31 PM BL[employer] [place]AND Plan of Treatment Health Maintenance Due Date [...] patient's age to complete this topic Insurance [facility] AETNA [employer] HMO/POS Care Teams Motor Equipment Captain Relationship Specialty Start Date End Date Alexa Dougherty MD [address] [place] [address] DR LEMONS [address] [place] [id number] PCP - General Family Medicine 08/16/23
--- OUTSIDE RECORDS SUMMARY | 2024-07-11 00:16 | XMS_ITS | Data Portability ---
Author Organization [place] - [facility], Main Office Address [address] [place] [address] Care Team Providers Care International Sales Manager Name Role Phone EASTMANADAMPIOTR Primary Care Provider [phone] Assessment Encounter Date Assessment Date Assessment LastModified [...] 25-hydroxy, total, serum 2023 024 [email or web address] [facility] (Lab), [address] [place], [address], 4 10:47:30 lipid panel, serum 2023 024 [email or web address] 477 [facility] (Lab), [address] [place], [address], 4 10:47:29 hepatic function panel, serum 20232 024 [email or web address] 477 [facility] (Lab), [address] [place], [address], 4 10:47:30 CBC w/ auto diff [address] (Lab), [address] [place], [address], 4 10:47:30 hepatitis C Ab, serum [address] (Lab), [address] [place], [address], 4 10:47:30 glycohemogl obin, total, blood [address] (Lab), [address] [place], [address], 4 10:47:30 CMP, serum or plasma [address] (Lab), [address] [place], [address], 4 10:47:30 PSA, serum or plasma [email or web address] (Lab), [address] [place], [address], 3 08:28:58 TSH, serum or plasma [email or web address] (Lab), [address] [place], [address], 3 08:28:58 lipid panel, serum [email or web address] (Lab), [address] [place], [address], 3 08:28:58 urinalysis, complete [email or web address] [place] [address] (Lab), [address] [place], [address], 3 08:28:58 HbA1c (hemoglobin A1c), blood [email or web address] (Lab), [address] [place], [address], 3 08:28:59 CMP, serum or plasma [email or web address] (Lab), [address] [place], [address], 3 08:28:59 CBC [email or web address] (Lab), [address] [place], [address], 3 08:28:59 Referral gastroenter ologist referral - Please call patient to schedule an appointment . Patient would like to have it done this year. Thank you. 2023 024 [email or web address] Rebel Hernández MD, [address] [facility], [facility] [address], [place], [address], 4 08:57:38 general surgeon referral - . Please call pt to schedule appt. Thank you 2022 023 nilson Linda MD, [address] [facility], [address], [place], [address], 3 19:59:41 Procedures None recorded. Surgeries None recorded. Imaging None recorded. Medication Orders triamcinolo ne acetonide 0.5 % topical ointment 2023 024 [facility][id number], [address] , [place], [address], 4 12:37:26 Patient TargetsNo targets recorded. Patient InstructionsNo instructions recorded. Reason for Referral General Surgeon Referral for Hernia of anterior abdominal wall . Please call pt to schedule appt. Thank you Referring Physician: Bobbi Eastman, [facility], Encounter Date: 06/19/2022 Hall Worker Referral for Screening for malignant neoplasm of colon Please call patient to schedule an appointment. Patient would like to have it done this year. Thank you. Referring Physician: Linda Guerrero [facility], Encounter Date: 03/02/2024 Results Created Date Observation Date Name Description Value Unit Range Abnormal Flag Note LastModifiedBy Organization Detail LastModifiedTime 06/13/1905/08/2022 CT, chest + abdom en, w/o contr ast No observ ation record ed. [email or web address] Not Available 06/13 18:16:09 08/08/19 24 08/08/2023 XR, chest No observ ation record ed. [email or web address] [address], [address], 08/24/2023 20:23:02 02/18/20 24 02/17/2024 imagi ng/di agnos tic resul t No observ ation record ed. [address], [address], 02/19/2024 12:02:12 06/23/19 25 06/11/2024 elect romyo gram No observ ation record ed. [email or web address] [address], [address], 06/22/2024 15:18:43 Result Notes None recorded. Problems Name Problem SNOMED Code Status Onset Date Resolution Date Notes Provider Name and Address Organization Details Recorded Time Abnormal testosterone 446906849 Active Not Available [employer] 3 09:16:51 Impacted cerumen 91846802 Active Not Available [facility] 3 09:16:51 Acute situational disturbance 644315093 Active Not Available [employer] 3 09:16:51 Strain of Achilles tendon 41120083 Active Not Available [employer] 3 09:16:51 Ankle pain 187502859 Active 2018 Not Available [facility] 3 09:16:51 Sprain of lateral ligament of ankle joint 415332815 Active 2018 Not Available [facility] 3 09:16:51 Laceration - injury 484060520 Active Not Available [facility] 3 09:16:52 Multiple nodules of lung 237502654 Active 2018 Not Available [facility] 3 09:16:52 Verruca vulgaris 22328539 Active Not Available [facility] 3 09:16:52 Hernia of anterior abdominal wall 779890613 Active 2022 KATHERIN Fernandez [address], [address], [place], [address] , [employer] [facility] [employer] [facility] 3 08:41:04 Anticipatory grief 51368216 Active 2022 KATHERIN Fernandez [address], [address], [place], [address] , [employer] [facility] 3 13:40:37 Diastasis recti 09574765 Active 2022 Tl hansen MD [address], [address], [place], [address] , [employer] [facility] 3 13:32:56 Contact dermatitis 76520952 Active 2023 GIULIA Chand [address], [address], [place], [address] , [employer] [facility] 4 12:36:42 Hyperlipidemi a 51636268 Active 2023 GIULIA Chand [address], [address], [place], [address] , [employer] [facility] 4 12:37:50 Essential hypertension 26390354 Active 2023 GIULIA Chand [address], [address], [place], [address] , [facility] 4 12:38:00 Problem Notes None recorded. Procedures Surgical History Date Name Laterality Status Provider Name and Address Organization Details Recorded Time other completed Ban Condon MA [facility] 03/10/2024 15:21:20 Imaging Results Imaging Date Name Status LastModified by Organization Details LastModified Time 05/08/2022 CT, chest + abdomen, w/o contrast completed [email or web address] Information not available 06/13/2022 18:16:09 08/08/2023 [facility]R, [facility] [place] [address], [address], 08/24/2023 20:23:02 02/17/2024 imaging/diagnostic result completed [address], [address], 02/19/2024 12:02:12 06/11/2024 electromyogram completed [address], [address], 06/22/2024 15:18:43 Procedure Notes None recorded. Medical Equipment None Reported. Allergies Allergen ID Allergen Name Allergen Category Reaction Reaction Severity Criticality Documentation Date Start Date Code Code System Note Provider Name and Address Organization Details Recorded Time 54785 wasp venoms environme nt hives Not available Not available 06/06/2022 80171 RxNorm Not Available [facility] 3 09:19:32 20976 aspirin medicatio n hives Not available Not available 06/06/2022 1191 RxNorm Bhavani Galaviz RN null, [facility] 4 12:27:29 Medications Name Sig Start Date [...] Updated DateTime 3 172.72 cm 28.9 kg/m2 25150.5 5 g 97.5 [degF] 86 /min 97 % 97 % 128 mm[Hg] 82 mm[Hg] Kimberly Dos Santos MA [place] [employer] 3 08:14:41 Date Recorded Body height Body mass index (BMI) Body weight Respiratory rate Heart rate Body temperature Oxygen saturation Oxygen saturation in Arterial blood by Pulse oximetry Systolic blood pressure Diastolic blood pressure Provider Name and Address Organization Details Last Updated DateTime 3 172.72 cm 28.9 kg/m2 96373.5 5 g 16 /min 80 /min 97.8 [degF] 97 % 97 % 130 mm[Hg] 76 mm[Hg] Michelle Pierce [employer] 3 11:13:29 Date Recorded Body weight Body temperature Heart rate Oxygen saturation Oxygen saturation in Arterial blood by Pulse oximetry Systolic blood pressure Diastolic blood pressure Provider Name and Address Organization Details Last Updated DateTime 4 29520.2 6 g 97.2 [degF] 78 /min 98 % 98 % 118 mm[Hg] 66 mm[Hg] Nancy Saldana RN [facility] [employer] [facility] 4 11:31:50 Date Recorded Body height Body mass index (BMI) Body weight Body temperature Heart rate Oxygen saturation Oxygen saturation in Arterial blood by Pulse oximetry Systolic blood pressure Diastolic blood pressure Provider Name and Address Organization Details Last Updated DateTime 4 170.18 cm 28.2 kg/m2 98386.6 3 g 98.2 [degF] 69 /min 98 % 98 % 122 mm[Hg] 82 mm[Hg] Bhavani Galaviz RN [facility] [employer] [facility] 4 12:27:01 Date Recorded Body height Body mass index (BMI) Body weight Body temperature Heart rate Systolic blood pressure Diastolic blood pressure Provider Name and Address Organization Details Last Updated DateTime 4 170.18 cm 28.2 kg/m2 95970.6 3 g 98.6 [degF] 66 /min 120 mm[Hg] 70 mm[Hg] Ban Condon MA [facility] 4 15:05:24 Social History Question Answer Notes LastModified by Organizat ion Details LastModified Time Tobacco Smoking Status Former Smoker Ban Condon MA [facility] 07/10/2022 10:37:02 What Is Your Level Of Alcohol Consumption? Occasional [email or web address] Information not available 06/19/2022 What Is Your Level Of Caffeine Consumption? Moderate [email or web address] Information not available 06/19/2022 In The 14 Days Before Symptom Onset, Have You Had Close Contact With A Laboratory-confir med COVID-19 While That Case Was Ill? No Information not available 07/10/2022 In The 14 Days Before Symptom Onset, Have You Had Close Contact With A Person Who Is Under Investigation For COVID-19 While That Person Was Ill? No Information not available 07/10/2022 What Type Of Diet Are You Following? REGULAR [email or web address] Information not available 06/19/2022 When Did You Quit Smoking? 6-10yearssince lastcijose Information not available 07/10/2022 Do You Use Any Illicit Or Recreational Drugs? No Information not available 07/10/2022 Have You Recently Traveled Abroad? No Information not available 07/10/2022 Do You Have Any Dietary Restrictions? No Information not available 07/10/2022 Sex: Unknown Functional Status Question Answer Note LastModified by Organizat ion Details LastModified Time What is your exercise level? Occasional [email or web address] Information not available 06/19/2022 Mental Status None recorded. Family History Relationship Description Onset Age of this Age Resolved Age Notes LastModified by Organization Details LastModified Time Brother Diabetes mellitus [id number] Not available 06/06/2022 09:14:22 Brother Hypertensive disorder [id number] Not available 06/06/2022 09:14:22 Mother Hypertensive disorder [id number] Not available 06/06/2022 09:14:22 Sister Hypertensive disorder [id number] Not available 06/06/2022 09:14:22 Paternal Aunt Family history of malignant neoplasm rmacios Not available 2023 14:57:28 Notes:stroke - father Medical History Condition Response HYPERTENSION Y Immunizations Vaccine Type Date Status Note Provider Nam e and Address Organization Details Recorded Time COVID-19, mRNA, LNP-S, PF, 30 mcg/0.3 mL dose 09/03/2020 completed Not Available [facility] 3 09:19:28 COVID-19, mRNA, LNP-S, PF, 30 mcg/0.3 mL dose 08/13/2020 completed Not Available [facility] 3 09:19:29 Tdap 10/04/2016 completed Not Available [facility] 06/06/2022 09:19:29 Past Encounters Encounter ID Performer Location Encounter Start Date Encounter Closed Date Diagnosis/Indication Diagnosis SNOMED-CT Code Diagnosis ICD10 Code Diagnosis Note [id number] [facility] [address] [place] [address] 06/09/2021 00:00:00 06/09/2021 13:39:06 [id number] [facility] Primary Care [facility] zac [address] [facility] [address] [place] [address] 09/14/2021 00:00:00 09/14/2021 08:56:09 [id number] [facility] Primary Care [facility] [address] [facility] [address] [place] [address] 09/28/2021 00:00:00 09/28/2021 13:55:30 [id number] [facility] Primary Care [facility] [address] [facility] [address] [place] [address] 04/05/2022 00:00:00 04/05/2022 19:57:53 [id number] KATHERIN Fernandez [address] [place] [address] 06/19/2022 08:05:22 06/19/2022 08:56:17 Hernia of anterior abdominal wall 121166474 K43.9 ChronicUnk nowavery Bender refer back to gen surgery for further evaluation /tx. Adult heal th examination 756789326 Z13.29 Z13.220 Z13.89 Z13.1 Z00.01 Adult Health Exam--Due for routine labs (CBC, CMP, Lipids, HgA1C, TSH, UA, PSA).--PSA check at 40yo-order ed--Colon screening at 45yo--Tdap recommende d q 10 years--Flu recommende d yearly--CO VID-19 recommende d--Encoura ged yearly dental, vision, hearing screenings Anticipatory grief 78851 004 F43.21 Pts has terminal colo-recta l cancer. Encouraged pt to consider grief counseling . [id number] Tl hansen MD [facility] General Surgery [address] [facility] [address] [place] [address] 07/10/2022 10:35:42 07/10/2022 12:04:01 Diastasis recti 88462665 M62.08 [id number] GIULIA Chand [facility] Primary Care [address] [place] [address] 02/19/2024 11:25:20 02/19/2024 11:47:54 Transition of care from emergency department to self-care [id number] 43174 Z76.89 Doing well at this time.Will follow neurologis t as directed. [id number] GIULIA Chand [facility] Primary Care Harry young [address] [facility] [address] [place] [address] 03/02/2024 12:15:54 03/02/2024 12:43:27 Adult health examination 342866348 Z00.00 Discussed medication compliance and routine follow up.Discuss ed healthy diet and routine exercise.R nelyiewed vaccine records and made recommenda tions as needed.Enc ouraged annual eye and dental exams, as well as twice yearly dental cleanings. Will check screening labs as listed below. Contact dermatitis 52891 004 L25.9 Hyperlipidemia 82360088 E78.5 Will check labs as listed below. Essential hypertension 08469768 I10 122/82Disc ussed DASH diet and medication compliance . Screening for malignant neoplasm of colon 357079693 Z12.11 Diabetes m ellitus screening 826399853 Z13.1 Will check labs as listed below. Hepatitis C screening 41 2621086 Z11.59 Will check labs as listed below. Body mass index 25-29 - overweight 296584406 Z68.28 BMI: 28.2Discus sed healthy diet and routine exercise. [id number] Rebel Hernández MD [facility] General Surgery [address] [facility], [facility] [address] [place] [address] 03/10/2024 14:56:48 03/10/2024 15:55:13 Health Concerns Section Related Observation LastModified by Organization Detai ls LastModified Time None Recorded Concern Status LastModified by Organization Details LastModified Time None Recorded Advance Directives Directive None Recorded Payers Encounter Date Sequence Insurance Name Policy Number Policy Cameron Covered Member ID Cameron Member ID Guarantor Name 06/19/2022 1 [employer] - CHOICE (POS II) [id number] Kaleb Evans [id number] Kaleb Evans 07/10/2022 1 [employer] - CHOICE (POS II) [id number] Kaleb Evans [id number] Kaleb Evans 02/19/2024 1 [employer] - CHOICE (POS II) [id number] Kaleb Evans [id number] Kaleb Evans 03/02/2024 1 [employer] - CHOICE (POS II) [id number] Kaleb Evans [id number] Kaleb Evans 03/10/2024 1 [employer] - CHOICE (POS II) [id number] Kaleb Evans [id number] Kaleb Evans Notes Date Note Type Note Provider Name and Address Organization Details Recorded Time 06/19/2022 text/html 1. Pt in office with son for annual well visit.2. Pt states he still hasn't gotten a call from the surgeon to fix his hernia.2. Pts has colon cancer and has only been given about a year to live. KATHERIN Fernandez [address] [facility], [address] [address], [place], [address], [employer] 06/19/2022 13:43:33 07/10/2022 text/html Patient presents to clinic to discuss possible ventral hernia. Reports some nausea intermittently, had endoscopy which r/o hiatal hernia and was unremarkable. CT scan did not indicate any ventral hernias. No vomiting. No abdominal pain. No fevers. No changes in appetite or diet. Tl Parikh MD [address] [facility], [facility] [address], [place], [address], [employer] 07/10/2022 13:33:02 02/19/2024 text/html Patient is a 43 year old male that presents to the office for ER follow-up. Patient reports he went to [facility] last Saturday for light headedness and clammy. Patient doesn't know what he was diagnosed with, said his tests were normal. Patient was working on a stove and symptoms started when he stood up. Patient has not had any additional episodes since ER visit. Patient reports Saturday he went to [facility] for left arm and bilateral leg numbness and tingling. Patient had imaging done and is scheduled to follow up with a neurologist today for nerve compression in cervical spine. GIULIA Chand [address], [address], [place], [address], [employer] 02/25/2024 19:13:44 03/02/2024 text/html Patient is a [...] and shortness of breath. labs-orderedcolono scopy- orderedFlu-decline [id number] GIULIA Chand [address], [address], [place], [address], [employer] 03/09/2024 21:40:46 03/10/2024 text/html 43yo M for screening CRC. Asymptomatic, h/o RI 08/29 s/p stents, on Chris Hernández MD [address], [address], [place], [address], [employer] 03/10/2024 15:53:59
--- OUTSIDE RECORDS SUMMARY | 2024-07-11 00:16 | XMS_ITS | Continuity of Care Document ---
Author Organization [facility] Address [address] [place] [address] Phone Care Team Providers Care Medical Equipment Sales Name Role Phone Aba Brantley DO Unavailable Unavailable Advance Directives Directive Yes / No Effective Date File Name No Information Encounters Encounter Description Practice Location Reason(s) For Visit Diagnoses Date Provider Providers Copied on Encounter [facility], [address], [place], [place], [id number], [place] [phone] [facility] No Information Karon Shelley. [address] [facility], [place], [address], [place]. tel: [phone] Family History Family Member Type Diagnosis Age At Onset No Information Payers Payer name Insurance type Covered alliance party ID Authoriza tion(s) No Information Social [...]
--- OUTSIDE RECORDS SUMMARY | 2024-07-11 00:16 | XMS_ITS | CONTINUITY OF CARE DOCUMENT ---
Author Name attila aiken Address Unknown Organization [facility] Address [address] [facility] [address] [facility] [place] [address] Phone [phone] Care Team Providers Care Ibm Websphere Commerce Developer Name Role Phone Sarwat BLACK, Zeke Unavailable [phone] TATUM P D DRIVER, DELORA Unavailable TATUM P D DRIVER, DELORA Unavailable PROBLEMS Condition Status Date Provider [...] In-person encounter Office Visit Zeke Fam MD [facility] - In-person encounter Office Visit Zeke Fam MD [facility] Abnormal EKG - nml stress nuc 06/26 - In-person encounter Office Visit Zeke Fam MD [facility] Abnormal EKG - nml stress nuc 06/26 - In-person encounter Office Visit Zeke Fam MD [facility] Sinus tachycardia - In-person encounter Office Visit Zeke Fam MD [facility] Family History of Hypertension:Chest painHTN essentialTobacco abuse, quit - In-person encounter Office Visit Zeke Fam MD [facility] Family History of Hypertension:Chest pain VITAL SIGNS Date Observation Value Provider Body Mass Index (Ratio) 29.19 kg/m2 Clara Fam MD blood pressure, cuff size large Ma radha Okreek blood pressure, diastolic 116 mm[Hg] Ma radha [place] blood pressure, systolic 168 mm[Hg] [facility] steve [place] respiratory rate E&M 16 /min Charissa myers [...] irajenenfheidy pulse rate 90 /min Ira Grmalcolmnemaiae [facility] weight E&M 186 [lb_av] Ira Gruenenfe er height E&M 68 [in_i] Ira Gruenenfe [facility] Body Mass Index (Ratio) 28.43 kg/m2 Mario [...] blood pressure, diastolic 70 mm[Hg] Kr isty Elverta blood pressure, systolic 140 mm[Hg] Kri sty Anant oxygen saturation, oximetry 98 % Denisse Elverta pulse rate 109 /min Denisse Elverta respiratory rate E&M 18 /min Denisse Anant weight E&M 190 [lb_av] Denisse Anant height E&M 68 [in_i] Denisse Anant Body Mass Index (Ratio) 28.43 kg/m2 Mario varela Kyte blood pressure, cuff size regular Kr isty Elverta blood pressure, diastolic 82 mm[Hg] Kr isty Elverta blood pressure, systolic 140 mm[Hg] Kri sty Elverta oxygen saturation, oximetry 98 % Denisse Anant pulse rate 90 /min Denisse Anant respiratory rate E&M 17 /min Denisse Elverta weight E&M 187 [lb_av] Denisse Elverta height E&M 68 [in_i] Denisse Anant Body [...] tablet by mouth once a day Denissegretchen Ny SOCIAL HISTORY Date Observation Value Provider social history reviewed E&M revi ewed - no changes required Zeke Fam MD social history E&M S moking [...] Denisse Anant smoking status Former smoker Denisse Elverta social history E&M S moking History: P [...] DECISION MADE TREATMENT PLAN Date Name Performer [id number],B,No recurrence . Zeke Fam MD [id number],S,H is BP is elevated today at 168/116. He has been to your office, and as per patient no mention of high BP was made. He is on amlodipine 10mg/day but is not entirely compliant with medications. He is due to see you this coming and will have another blood pressure check. We will continue amlodipine and compliance was encouraged. Zeke Fam MD [id number],C,H is BP is elevated today at 168/116. [...] Will also request labs from your office. [facility] Cardiology:No recurrence. [facility] Cardiology:Blood pre ssure elevated at 140/70. He will monitor his blood pressure for the next two weeks and call with the numbers. Advised reduced sodium intake and routine monitoring of the blood pressure. We aim for less than 130/80. If his blood pressure is consistently above 130/80, will adjust medications. [facility] Cardiology:Unclear e tiology. Will have him monitor his heart rate and blood pressure for the next two weeks and call with the numbers. If his heart rate remains elevated, he may benefit from a beta drew. [facility] Cardiology [facility] Cardiology:Blood pre ssure elevated at 140/70. Advised to monitor his blood pressure regularly and call our office if consistently above 130/80. Changes to antihypertensives will be made as needed. [facility] Cardiology:No recurr ence. His stress test last [...]
--- OUTSIDE RECORDS SUMMARY | 2024-07-11 00:16 | XMS_ITS | Referral Summary ---
Author Organization [facility] [address] Address [address] [place] [address] Care Team Providers Care Metal Cleaner Name Role Phone Alexa Dougherty MD Primary Care Provider + Allergies Active Allergy Reactions Criticality Noted Date Comments Venom-Wasp Swelling Medium 02/14/2024 Medications atorvastatin (LIPITOR) 40 mg tabletIndications :Coronary artery disease, unspecified vessel or lesion type, unspecified whether angina present, unspecified whether otoe-[place]ouria or transplanted heart Take 2 tablets (80 mg total) by mouth daily 60 tablet 11 4 08/30/19 25 Active losartan (COZAAR) 25 mg tabletIndications :Coronary artery disease, unspecified vessel or lesion type, unspecified whether angina present, unspecified whether [place] or transplanted heart Take 1 tablet (25 [...] Diagnosed Date Coronary artery disease invo lving o[place]e-[place] coronary artery of o[place]e-[place] heart without angina pectoris 08/16/2023 History of [...] on file Legal Sex Male 6:07 PM STARS ANALYTICAL LEAD Gender Identity Not on file Sexual Orientation Not on file Last Filed Vital Signs Vital Sign Reading Time Taken Comments Blood Pressure 110/70 04/10/2024 1:31 PM STARS ANALYTICAL LEAD Pulse 71 04/10/2024 1:31 PM STARS ANALYTICAL LEAD Temperature 36.4 C (97.6 F) 02/14/2024 12:23 PM STARS ANALYTICAL LEAD Respiratory Rate 15 02/14/2024 5:00 PM STARS ANALYTICAL LEAD Oxygen Saturation 96% 04/10/2024 1:31 PM STARS ANALYTICAL LEAD Inhaled Oxygen Concentration - - Weight 81.6 kg (180 lb) 04/10/2024 1:31 PM STARS ANALYTICAL LEAD Height 170.2 cm (5' 7 ) 04/10/2024 1:31 PM STARS ANALYTICAL LEAD Body Mass Index 28.19 04/10/2024 1:31 PM STARS ANALYTICAL LEAD Plan of Treatment Not on file Insurance [facility] AETNA [facility] AETNA [employer] HMO/POS Care Teams Metal Cleaner Relationship Specialty Start Date End Date Alexa Dougherty MD [address] [place] [address] [address] PCP - General Family Medicine 08/16/23
--- OUTSIDE RECORDS SUMMARY | 2024-07-11 00:16 | XMS_ITS | Clinical Summary ---
Author Organization [facility] [employer] Address [facility] [facility] [place] [address] Care Team Providers Care Financial Assistance Specialist Name Role Phone Unavailable Primary Care Provider Unavailabl e Source Comments [facility],non-owned Affiliates and Associated Physician Practices is amultiple site organization consisting of ambulatory clinics and hospital sitesin [place], [place], [place] and [place]. This disclosure is being madepursuant to the Care Everywhere program and may not contain all information available regarding this patient. Last updated 17.[facility] [employer] Allergies Active Allergy Reactions Criticality Noted Date [...] VACCINE ( - 2023-2 5 season) 2023 DEPRESSION SCREENING 04/08/2024 INFLUENZA VACCINE (Season Ended) 2024 ZOSTER VACCINE (1 of 2) 2028 HIB VACCINE Aged Out No longer eligi ble based on patient's age to complete this topic HPV VACCINE Aged Out No longer eligi ble based on patient's age to complete this topic MENINGOCOCCAL (Group B) VACC INE SHARED DECISION-MAKING Aged Out No longer eligibl e based on patient's age to complete this topic MENINGOCOCCAL GROUPS A/C/Y/W VACCINE Aged Out No longer eligible b ased on patient's age to complete this topic PNEUMOCOCCAL VACCINE Aged Out No long er eligible based on patient's age to complete this topic
--- NOTE | 2024-07-11 00:23 | ECG_ITS ---
Test Date: 2024-07-11 00:28:55 Measurements Intervals [place] Rate: 75 P: 51 WV: 185 QRS: 36 QRSD: 94 T: 62 QT: 357 QTc: 401 Interpretive Statements SINUS RHYTHM POSSIBLE LEFT ATRIAL ENLARGEMENT INCOMPLETE RIGHT BUNDLE BRANCH BLOCK BASELINE ARTIFACT- I, II, AVR BORDERLINE ECG Compared to ECG 02/17/2024 21:33:48 NO SIGNIFICANT CHANGE Electronically Signed On 07-11-2024 07:15:09 CDT by Liu Sosa D.O.
[2024-07-11] MEDS: ASPIRIN 81 MG CHEWABLE TABLET 324 MG PO (00:34)
[2024-07-11 00:38] VITALS: BP 153/92; PULSE 81; RESP 17; O2SAT 98; O2SAT 99
[2024-07-11 00:41] LABS: Basophils Absolute Auto 0.1 K/mm3 (0.0-0.1); Basophils Percent Auto 0.6 % (0.2-1.2); Eosinophils Absolute Auto 0.2 K/mm3 (0-0.3); Eosinophils Percent Auto 1.3 % (0-4.4); Hemoglobin 14.2 g/dL (14.0-18.0); Immature Granulocyte Absolute 0.09 K/mm3 (0.00-0.031); Immature Granulocyte Percent A 0.8 % (0-0.5); Lymphocytes Absolute Auto 2.73 K/mm3 (0.9-3.2); Lymphocytes Percent Auto 24.6 % (18.3-44.2); Mean Corpuscular HGB Conc 33.8 g/dl (32-36); Mean Corpuscular Hemoglobin 27.9 pg (26-34); Mean Corpuscular Volume 82.5 fl (80-100); Monocytes Absolute Auto 1.4 K/mm3 (0.1-0.6); Monocytes Percent Auto 12.3 % (2.6-8.5); Neutrophils Absolute Auto 6.7 K/mm3 (1.3-6.7); Neutrophils Percent Auto 60.4 % (45.5-73.1); Platelet Count Result 370 k/mm3 (150-375); Red Blood Count 5.09 M/mm3 (4.6-6.20); Red Cell Distribution Width 13.1 % (11.5-14.5); White Blood Count 11.1 K/mm3 (4.5-10.0)
[2024-07-11 00:50] LABS: Alanine Aminotransferase 103 U/L (6-50); Albumin Level 4.6 g/dL (3.5-5.1); Alkaline Phosphatase 134 U/L (38-126); Anion Gap 12 mmol/L (4-12); Aspartate Amino Transferase 41 U/L (17-59); Bilirubin,Total 0.7 mg/dL (0.2-1.3); Blood Urea Nitrogen 14 mg/dL (9-20); Carbon Dioxide 29 mmol/L (22-30); Chloride 96 mmol/L (98-107); Estimated CRCL calculation 107 ml/min; Estimated Glomerular Filt Rate > 60; Glucose 98 mg/dL (65-110); Lipase 162 U/L (23-300); Sodium 137 mmol/L (137-145)
[2024-07-11 00:56] LABS: Prothrombin Time 13.7 Seconds (11.1-14.7)
[2024-07-11 00:57] LABS: Partial Thromboplastin Time 30.2 Seconds (22.3-36.8)
[2024-07-11 01:02] LABS: Troponin I < 0.012 ng/mL (0.000-0.034)
--- NOTE | 2024-07-11 01:04 | ED.CHESTPAIN ---
HPI - Chest Pain General Chief Complaint: Chest Pain Stated Complaint: chest pain, breathing heavy Time Seen by Provider: 07/11/24 00:38 Source: patient and family Mode of arrival: ambulatory Limitations: no limitations History of Present Illness HPI narrative: Patient presents with concern for chest pain and shortness of breath. He felt like he was breathing heavy. He initially had some mild symptoms this morning when he woke up but then resolved. At 2030 while trying to sleep he then developed left sided chest pain with bilateral arm tingling. He states they still feel a little weird. Has chronic paresthesias in left arm for which he is due to undergo surgery. No prior PE/DVT. Does not have nitroglycerin. No recent cough, hemoptysis, fever, chills. No edema, bilaterally or unilaterally. No recent surgery or trauma requiring anesthesias in past 4 weeks. Not on exogenous hormones. Stents x2 placed here in the past year. That had occurred just weeks after his so a lot of stressors. Compliant with all meds including Brilinta. Had eaten at [employer] earlier in the evening, first time and ordered something spicy. Cardiac risk factors HTN: + HLD: states no but is on a statin DM: 0 Obese: 0 Smoker: No - and quit >3 mos ago Personal history NJ/TIA/CVA: Yes , 2 stents Fam Hx NJ in first degree relative <65yo: Yes, father Related Data Allergies Allergy/AdvReac Type Severity Reaction Status Date / Time bee venom protein (honey bee) Allergy Severe Anaphylaxis Verified 07/11/24 00:15 [facility] Past Medical History Medical History On statin therapy due to risk of future cardiovascular event Cubital tunnel syndrome on left Left carpal tunnel syndrome Lower back pain Diastolic dysfunction without heart failure Echocardiogram August 2023 demonstrated grade 1 diastolic dysfunction EF of 50 55% with mid anterolateral wall hypokinesis Hypertension NSTEMI (non-ST elevated myocardial infarction) Hiatal hernia Surgical History Surgical History History of esophagogastroduodenoscopy (EGD) (06/01/22) Nonerosive reflux disease History of thumb surgery Titanium screw right thumb History of coronary artery stent placement 08/08/2023 acute complete occlusion of the mid ramus with 3 mm x 26 mm drug-eluting stent. 10/03/2023 with staged PCI of obtuse marginal with a 2.5 mm x 15 mm drug-eluting stent (Dr. Delphine Mota) Hx of appendectomy Family History Family History Sibling Diabetes mellitus Sibling Diabetes mellitus Mother Hypertension Father Hypertension Acute myocardial infarction <65yo Cerebrovascular accident Social History Social History (Updated 07/12/24 @ 10:54 by Gail Polk MD) Social History: He was for 20 years. He has been since July 2023. He and his raised 3 children his youngest child is 18 years old. 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 He smoked a half a pack of cigarettes for approximately 15 years but quit smoking in his mid 30s. He drinks a beer on occasion. Denies illicit substance use. Gets together routinely with brother for breakfast. Code status: Full code Surrogate decision maker: Mother Smoking packs per day: 0.5 Smoking cigarettes per day: 10.0 Years smoked: 15 Smoking pack-years: 7.50 Smoking status: Former smoker Tobacco type: cigarettes Smoking end date: 04/08/15 Alcohol intake: current Drinks per week: 2 Alcohol use details: beer Substance use: never Substance use type: does not use Other substance usage details: Rarely Do You Feel Safe in your Home?: Yes Lack of Transportation: No Lack of Food: Never True Current Housing: I Have Housing Concerned About Future Housing: No Difficulty Paying Gas/Electric Bills: No Difficulty Paying for Meds: No Currently Unemployed: No Education: High School Diploma/GED Difficulty w/ Childcare or Family Care: No Living arrangements: with family Spiritual care concerns: No Exam Const: General: healthy appearing, no acute distress and alert; No confusion, diaphoretic or ill appearing Nutritional Appearance: well nourished Orientation/consciousness: patient oriented x3 Limitations: no limitations HENMT: Head: normal to inspection Other: gross auditory acuity intact Eyes: Conjunctivae: conjunctivae normal Direct Ophthalmoscopy: no photophobia Neck: Neck: normal visual inspection and no meningeal signs Resp: Effort & Inspection: normal respiratory effort, not labored, no retractions, not tachypneic and no use of accessory muscles Cardio: Rate: regular rate, not bradycardic and not tachycardic Rhythm: regular rhythm GI: Inspection: non-distended Skin: General skin exam: normal color, no jaundice and no pallor Other: no wounds noted Neuro: General: patient oriented x3, moves all extremities, no meningeal signs and no focal motor deficits Speech: normal speech Extrem: General: normal to inspection Other: no b/l LE edema Psych: Mental Status: mental status grossly normal Affect: normal affect and No Sad affect present Attitude: cooperative Other: engaged in conversation; knowledgeable about health history Course Vital Signs Vital signs: Vital Signs Pulse Rate 81 07/11/24 00:38 Respiratory Rate 17 07/11/24 00:38 Blood Pressure 153/92 H 07/11/24 00:38 Pulse Oximetry 98 07/11/24 00:38 Oxygen Delivery Room Air 07/11/24 00:38 Temperature 98.1 F 07/11/24 05:13 Pulse Rate 72 07/11/24 05:13 Respiratory Rate 16 07/11/24 05:13 Blood Pressure 151/100 H 07/11/24 05:13 Pulse Oximetry 98 07/11/24 05:13 Oxygen Delivery Room Air 07/11/24 00:38 MDM - Chest Pain MDM Narrative Medical decision making narrative: Patient presents with chest pain and shortness of breath. Had an episode this morning that resolved and then as trying to sleep developed left sided chest pain with bilateral arm tingling. In the ED he is afebrile with VS notable for HTN. PERC Rule Age greater than or equal to 50:0 HR greater than or equal to 100:0 O2 sat room air <95%:0 Unilateral leg swellin Hemoptysis: 0 Recent surgery or trauma less than 4 wks ago requiring tx with general anesthesia: 0 Prior PE or DVT: 0 Hormone use (OCP, HRT or estrogenic hormone use in M/F patients): 0 Will defer further work up for PE. HEART SCORE History 2 highly suspicious 1 moderately suspicious 0 slightly suspicious History score 0 (patient describes left arm numbness that is chronic and for which he has surgery coming up and he notes that he had spicy food at [employer] that day which is unusual thus there is strong suspicion for possible GERD/gastritis) ECG [address] depression/elevation not due to LBBB, LVH, or digoxin [address] depression but LBBB, LVH, nonspecific repolarization changes 0 normal ECG score 0 Age 2 >/= 65 1 45-64 0 <45 Age score 1 Risk factors (HTN, hypercholesterolemia, DM, obesity with BMI >30, current smoker or cessation </=3mo), positive fam hx with parent or sibling with CVD before age 65, atherosclerotic disease (prior NJ, PCI/CABG, CVA/TIA, or peripheral arterial disease) 2 >/= 3 risk factors or history of atherosclerotic dz 1 - 1-2 risk factors 0 no known risk factors Risk factor score 2 (HTN, denies HLD but on statin post stent, +CAD with stents and + fam Hx) Initial Troponin 2 >3 times normal limit 1 1-3 times normal limit 0 less than or equal to normal limit Troponin score = 0 Total HEART Score 3. . ALT and alk-phos elevation, not seen previously. Will order CT abd and pelvis along with chest. BNP normal. Repeat troponin normal Urine cloudy but no evidence of infection despite the questionable finding of cystitis on CT scan. We extensively discussed the HEART score and that the H is somewhat subjective and that a case could be made for either calling this episode slightly suspicious or moderately suspicious. Patient is concerned overall about his health given he required cardiac stent(s) and that his around that time so he is constantly worried about his health. Ultimately, we discussed that it would be reasonable to give him a score of either 0 or 1 based on the degree of interpretation. We talked through his symptoms again. He has had no recurrence of his symptoms since being in the ED. Reasonable at this point to attribute his symptoms to other than primarily cardiac in nature thus HEART score 3 and stable for discharge with outpatient follow up (stiff straw hat washer Dr Mota). We thoroughly talked through the option of being more concerned about the history and making a HEART score of 4 for furhter monitoring and work up. Through shared decision making, discharing but he is given strict ED return precautions verbally and verifies understanding, in agreement with the pln. Stable for discharge. Radiologist called me at 8:44 to discuss the incidental finding also noted on his interpretation of the 2.2cm liver nodule. I then called the patinet at approximately 09:00 and informed him. He verified understanding that his primary care physician could help arrange further workup for this incidental finding to include pre and postcontrast MRI. Differential Diagnosis Differential diagnosis: Likely stable angina, unstable angina pectoris, atypical chest pain, st elevation myocardial infarction, costochondritis, chest pain, biliary colic and other (GERD, gastritis; MSK ; neuropathy; ACS) Lab Data Attestation: I reviewed the patient's lab results. Lab results narrative: Very mild leukocytosis 07/11/24 00:35 07/11/24 00:35 Labs: Lab Results 07/11/24 07/11/24 07/11/24 Range/Units 00:35 03:13 05:11 WBC 11.1 H (4.5-10.0) K/mm3 RBC 5.09 (4.6-6.20) M/mm3 Hgb 14.2 (14.0-18.0) g/dL Hct 42.0 (42.0-52.0) % MCV 82.5 (80-100) fl MCH 27.9 (26-34) pg MCHC 33.8 (32-36) g/dl RDW 13.1 (11.5-14.5) % Plt Count 370 (150-375) k/mm3 MPV 9.0 (7.4-10.4) fl Immature Gran % (Auto) 0.8 H (0-0.5) % Neut % (Auto) 60.4 (45.5-73.1) % Lymph % (Auto) 24.6 (18.3-44.2) % [place] % (Auto) 12.3 H (2.6-8.5) % Eos % (Auto) 1.3 (0-4.4) % Baso % (Auto) 0.6 (0.2-1.2) % Lymph # (Auto) 2.73 (0.9-3.2) K/mm3 [place] # (Auto) 1.4 H (0.1-0.6) K/mm3 Eos # (Auto) 0.2 (0-0.3) K/mm3 Baso # (Auto) 0.1 (0.0-0.1) K/mm3 Abs Immat Gran (auto) 0.09 H (0.00-0.031) K/mm3 Absolute Neuts (auto) 6.7 (1.3-6.7) K/mm3 Absolute Nucleated RBC 0.000 (0.0-0.012) K/mm3 Nucleated RBC % 0.0 (0.0-0.2) % PT 13.7 (11.1-14.7) Seconds INR 1.0 APTT 30.2 (22.3-36.8) Seconds Sodium 137 (137-145) mmol/L Potassium 4.0 (3.4-5.0) mmol/L Chloride 96 L (98-107) mmol/L Carbon Dioxide 29 (22-30) mmol/L Anion Gap 12 (4-12) mmol/L BUN 14 D (9-20) mg/dL Creatinine 0.73 (0.7-1.3) mg/dL Estim Creat Clear Calc 107 ml/min Estimated GFR > 60 (59 - ) Glucose 98 (65-110) mg/dL Calcium 9.0 (8.4-10.2) mg/dL Total Bilirubin 0.7 (0.2-1.3) mg/dL AST 41 (17-59) U/L ALT 103 H (6-50) U/L Alkaline Phosphatase 134 H (38-126) U/L Troponin I < 0.012 < 0.012 (0.000-0.034) ng/mL NT-Pro-B Natriuret Pep 85 (19.9-100) pg/mL Total Protein 7.0 (6.3-8.2) g/dL Albumin 4.6 (3.5-5.1) g/dL Lipase 162 (23-300) U/L Urine Color Yellow (Yellow) Urine Appearance Cloudy H (Clear) Urine pH 7.5 (5.0-9.0) Ur Specific [place] > 1.045 H (1.001-1.035) Urine Protein Negative (Negative) mg/dL Urine Glucose (UA) Negative (Negative) mg/dL Urine Ketones Negative (Negative) mg/dL Ur Blood (Man) Negative (Negative) Urine Nitrate Negative (Negative) Urine Bilirubin Negative (Negative) Urine Urobilinogen 1.0 (<2.0) mg/dL Leukocyte Esterase Rfl Negative (Negative) GILBERT/UL Urine RBC 0-2 (0-2) /hpf Urine WBC 0-5 (0-3) /hpf Ur Squamous Epith Cells None seen (Few) /hpf Urine Bacteria None seen /hpf Urine Casts 0-2 Imaging Data Attestation: I personally reviewed and interpreted this imaging study as follows: My impression: Borderline cardiomegaly on my independent interpretation of chest x-ray. It also appears he likely has nipple rings bilaterally based on appearance Radiologist's impression: CT chest with contrast Stat Rad: No acute findings CT abd and pelvis w/ contrast Stat Rad: Possible cystitis Impressions Chest X-Ray 07/11/24 07:06 IMPRESSION: 1. No acute cardiopulmonary disease. Chest/Abdomen/Pelvis CT 07/11/24 08:34 IMPRESSION: 1. Diffuse bladder wall thickening with minimal surrounding inflammatory stranding suspicious for cystitis. Correlate with urinalysis. 2. Indeterminate 2.2 cm hepatic lesion. Recommend further evaluation with pre and postcontrast MRI. Dr. Christopher discussed these findings with Dr. Polk at 8:40 AM. 3. No acute cardiopulmonary disease. ECG Data EKG #1: Attestation: I personally reviewed and interpreted this ECG as follows: ECG completion date: 07/11/24 ECG completion time: 00:28 Interpretation: Normal sinus rhythm at a rate of 75 beats per minute. KY interval 185. QRS 94. QT/QTC 357/386. Good R-wave progression across the precordial leads. No T-wave inversions. Possible right ventricular conduction delay based on the RSR appearance in V1 and V2 as well as to a lesser degree V3. EKG #2: Attestation: I personally reviewed and interpreted this ECG as follows: ECG completion date: 07/11/24 ECG completion time: 03:17 Interpretation: Normal sinus rhythm at a rate of 72 beats per minute. KY interval 184. QRS 96. QT/QTC 349/374. Good R-wave progression across the precordial leads. No T-wave inversions. Discharge Plan Discharge Clinical Impression: Leukocytosis, Elevated ALT measurement, High alkaline phosphatase, Chest pain Patient Disposition: Home, Self-Care Condition: Stable Instructions: Antibiotic Form, Chest Pain (DC), Leukocytosis (ED), Transaminitis (ED) Additional Instructions: As we discussed, the exact etiology of your symptoms remains unclear however it seems there numerous other causes that might of been contributing and thus you are otherwise low risk. Continue taking all of your medications as prescribed and follow-up with your PCP and stiff straw hat washer. Return to the emergency department with any new or worsening symptoms. Patient Language: British Prescriptions: No Action fluticasone propionate [Flonase Allergy Relief] 50 mcg/actuation spray,suspension 2 spray intranasal DAILY Qty: 48 3RF Rx Instructions: administer into each nostril 1 or 2 puffs daily aspirin 81 mg Tablet,Delayed Release (Dr/Ec) 81 mg PO QAM Qty: 30 0RF atorvastatin 40 mg Tablet 80 mg PO DAILY Qty: 60 0RF metoprolol succinate 50 mg Tablet Extended Release 24 Hr 50 mg PO QAM Qty: 30 0RF losartan 25 mg Tablet 25 mg PO DAILY Qty: 30 0RF Brilinta 90 mg Tablet 90 mg PO Q12HR Qty: 60 0RF meloxicam 7.5 mg tablet See Rx Instructions .ROUTE .COMPLEX Qty: 30 1RF Dose Instruction: TAKE 1 TABLET BY MOUTH EVERY DAY Rx Instructions: TAKE 1 TABLET BY MOUTH EVERY DAY Follow-up/Referrals: Delphine Mota MD [Physician] - (cardiology) Cesar,Linda Avila NP [Primary Care Provider] - Stand Alone Forms: Work/School Release IP Time of Disposition: 06:02
[2024-07-11 01:12] VITALS: BP 135/94; PULSE 69; RESP 16; TEMP 36.7; O2SAT 97
--- OUTSIDE RECORDS SUMMARY | 2024-07-11 01:33 | XMS_ITS | Clinical Summary ---
Author Organization [facility] [address] Address [address] [place] [address] Care Team Providers Care Knitting Machine Mechanic Name Role Phone Alexa Dougherty MD Primary Care Provider + Allergies Active Allergy Reactions Criticality Noted Date Comments Venom-Wasp Swelling Medium 02/14/2024 Medications atorvastatin (LIPITOR) 40 mg tabletIndications :Coronary artery disease, unspecified vessel or lesion type, unspecified whether angina present, unspecified whether [place] or transplanted heart Take 2 tablets (80 mg total) by mouth daily 60 tablet 11 4 08/30/19 25 Active losartan (COZAAR) 25 mg tabletIndications :Coronary artery disease, unspecified vessel or lesion type, unspecified whether angina present, unspecified whether [place] or transplanted heart Take 1 tablet (25 [...] Diagnosed Date Coronary artery disease invo lving [place] coronary artery of [place] heart without angina pectoris 08/16/2023 History of [...] on file Legal Sex Male 6:07 PM 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 Gender Identity Not on file Sexual Orientation Not on file Obstetrics History Last Filed Vital Signs Vital Sign Reading Time Taken Comments Blood Pressure 110/70 04/10/2024 1:31 PM 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 Pulse 71 04/10/2024 1:31 PM 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 Temperature 36.4 C (97.6 F) 02/14/2024 12:23 PM 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 Respiratory Rate 15 02/14/2024 5:00 PM 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 Oxygen Saturation 96% 04/10/2024 1:31 PM 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 Inhaled Oxygen Concentration - - Weight 81.6 kg (180 lb) 04/10/2024 1:31 PM 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 Height 170.2 cm (5' 7 ) 04/10/2024 1:31 PM 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 Body Mass Index 28.19 04/10/2024 1:31 PM 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 Plan of Treatment Health Maintenance Due Date [...] patient's age to complete this topic Insurance [facility] [employer] [place] HMO/POS Care Teams Knitting Machine Mechanic Relationship Specialty Start Date End Date Alexa Dougherty MD [address] [place] [address] DR LEMONS [address] [place] [id number] PCP - General Family Medicine 08/16/23
--- OUTSIDE RECORDS SUMMARY | 2024-07-11 01:33 | XMS_ITS | Referral Summary ---
Author Organization [facility] [address] Address [address] [place] [address] Care Team Providers Care Payroll Accounting Specialist Name Role Phone Alexa Dougherty MD Primary Care Provider + Allergies Active Allergy Reactions Criticality Noted Date Comments Venom-Wasp Swelling Medium 02/14/2024 Medications atorvastatin (LIPITOR) 40 mg tabletIndications :Coronary artery disease, unspecified vessel or lesion type, unspecified whether angina present, unspecified whether [place] or transplanted heart Take 2 tablets (80 mg total) by mouth daily 60 tablet 11 4 08/30/19 25 Active losartan (COZAAR) 25 mg tabletIndications :Coronary artery disease, unspecified vessel or lesion type, unspecified whether angina present, unspecified whether [place] or transplanted heart Take 1 tablet (25 [...] Diagnosed Date Coronary artery disease invo lving [place] coronary artery of [place] heart without angina pectoris 08/16/2023 History of [...] on file Legal 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 Gender Identity Not on file Sexual Orientation Not on file Last Filed Vital Signs Vital Sign Reading Time Taken Comments Blood Pressure 110/70 04/10/2024 1:31 PM ORDNANCE TRUCK INSTALLATION SUPERVISOR Pulse 71 04/10/2024 1:31 PM ORDNANCE TRUCK INSTALLATION SUPERVISOR Temperature 36.4 C (97.6 F) 02/14/2024 12:23 PM ORDNANCE TRUCK INSTALLATION SUPERVISOR Respiratory Rate 15 02/14/2024 5:00 PM ORDNANCE TRUCK INSTALLATION SUPERVISOR Oxygen Saturation 96% 04/10/2024 1:31 PM ORDNANCE TRUCK INSTALLATION SUPERVISOR Inhaled Oxygen Concentration - - Weight 81.6 kg (180 lb) 04/10/2024 1:31 PM 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
--- OUTSIDE RECORDS SUMMARY | 2024-07-11 01:33 | XMS_ITS | Continuity of Care Document ---
Author Organization [facility] Address [address] [place] [address] Phone Care Team Providers Care Fish Cake Maker Name Role Phone Aba Brantley DO Unavailable Unavailable Advance Directives Directive Yes / No Effective Date File Name No Information Encounters Encounter Description Practice Location Reason(s) For Visit Diagnoses Date Provider Providers Copied on Encounter [facility], [address], [place], [place], [id number], [place] [phone] [facility] No Information Karon Shelley. [address] [facility], [place], [address], [place]. tel: [phone] Family History Family Member Type Diagnosis Age At Onset No Information Payers Payer name Insurance type Covered green party ID Authoriza tion(s) No Information Social [...]
--- OUTSIDE RECORDS SUMMARY | 2024-07-11 01:34 | XMS_ITS | CONTINUITY OF CARE DOCUMENT ---
Author Name attila aiken Address Unknown Organization [facility] Address [address] [facility] [address] [place] [address] Phone [phone] Care Team Providers Care Assurance Auditor Name Role Phone Sarwat BLACK, Zeke Unavailable [phone] TATUM DIRECTOR OF EMPLOYEE DEVELOPMENT, DELORA Unavailable TATUM DIRECTOR OF EMPLOYEE DEVELOPMENT, DELORA Unavailable PROBLEMS Condition Status Date Provider [...] In-person encounter Office Visit Zeke Fam MD [facility] Office - In-person encounter Office Visit Zeke Fam MD [facility] Abnormal EKG - nml stress nuc 06/26 - In-person encounter Office Visit Zeke Fam MD [facility] Abnormal EKG - nml stress nuc 06/26 - In-person encounter Office Visit Zeke Fam MD [facility] Sinus tachycardia - In-person encounter Office Visit Zeke Fam MD [facility] Family History of Hypertension:Chest painHTN essentialTobacco abuse, quit - In-person encounter Office Visit Zeke Fam MD [facility] Family History of Hypertension:Chest pain VITAL SIGNS Date Observation Value Provider Body Mass Index (Ratio) 29.19 kg/m2 Clara Fam MD blood pressure, cuff size large Ri radha [place] blood pressure, diastolic 116 mm[Hg] Ri radha [place] blood pressure, systolic 168 mm[Hg] [facility] steve [place] respiratory rate E&M 16 /min Charissa myers [...] irajenenfheidy pulse rate 90 /min Ira Grmalcolmnemaiae [facility] weight E&M 186 [lb_av] Ira Gruenenfe er height E&M 68 [in_i] Ira Gruenenfe [facility] Body Mass Index (Ratio) 28.43 kg/m2 Mario [...] blood pressure, diastolic 70 mm[Hg] Kr isty [place] blood pressure, systolic 140 mm[Hg] Kri sty Anant oxygen saturation, oximetry 98 % Denisse [place] pulse rate 109 /min Denisse [place] respiratory rate E&M 18 /min Denisse Anant weight E&M 190 [lb_av] Denisse Anant height E&M 68 [in_i] Denisse Anant Body Mass Index (Ratio) 28.43 kg/m2 Mario varela [place] blood pressure, cuff size regular Kr isty [place] blood pressure, diastolic 82 mm[Hg] Kr isty [place] blood pressure, systolic 140 mm[Hg] Kri sty [place] oxygen saturation, oximetry 98 % Denisse Anant pulse rate 90 /min Denisse Anant respiratory rate E&M 17 /min Denisse [place] weight E&M 187 [lb_av] Denisse [place] height E&M 68 [in_i] Denisse Anant Body [...] Denisse Anant smoking status Former smoker Denisse [place] social history E&M S moking History: P [...] DECISION MADE TREATMENT PLAN Date Name Performer [id number],B,No recurrence . Zeke Fam MD [id number],S,H is BP is elevated today at 168/116. He has been to your office, and as per patient no mention of high BP was made. He is on amlodipine 10mg/day but is not entirely compliant with medications. He is due to see you this coming and will have another blood pressure check. We will continue amlodipine and compliance was encouraged. Zeke Fam MD [id number],C,H is BP is elevated today at 168/116. [...] Will also request labs from your office. [facility] Cardiology:No recurrence. [facility] Cardiology:Blood pre ssure elevated at 140/70. He will monitor his blood pressure for the next two weeks and call with the numbers. Advised reduced sodium intake and routine monitoring of the blood pressure. We aim for less than 130/80. If his blood pressure is consistently above 130/80, will adjust medications. [facility] Cardiology:Unclear e tiology. Will have him monitor his heart rate and blood pressure for the next two weeks and call with the numbers. If his heart rate remains elevated, he may benefit from a beta drew. [facility] Cardiology [facility] Cardiology:Blood pre ssure elevated at 140/70. Advised to monitor his blood pressure regularly and call our office if consistently above 130/80. Changes to antihypertensives will be made as needed. [facility] Cardiology:No recurr ence. His stress test [...]
--- OUTSIDE RECORDS SUMMARY | 2024-07-11 01:34 | XMS_ITS | Clinical Summary ---
Author Organization [facility] Address [facility] [facility] [place] [address] Care Team Providers Care Behavioral Therapist Name Role Phone Unavailable Primary Care Provider Unavailabl e Source Comments [facility],non-owned Affiliates and Associated Physician Practices is amultiple site organization consisting of ambulatory clinics and hospital sitesin [place], [place], [place] and [place]. This disclosure is being madepursuant to the Care Everywhere program and may not contain all information available regarding this patient. Last updated 17.[facility] Allergies Active Allergy Reactions Criticality Noted Date [...]
[2024-07-11 01:56] LABS: NT Pro B Type Natriuretic Pept 85 pg/mL (19.9-100)
--- NOTE | 2024-07-11 02:54 | ECG_ITS ---
Test Date: 2024-07-11 03:17:52 Measurements Intervals [place] Rate: 72 P: 47 [place]: 184 QRS: 27 QRSD: 96 T: 67 QT: 349 QTc: 384 Interpretive Statements SINUS RHYTHM POSSIBLE LEFT ATRIAL ENLARGEMENT INCOMPLETE RIGHT BUNDLE BRANCH BLOCK BORDERLINE ECG Compared to ECG 07/11/2024 00:28:55 NO SIGNIFICANT CHANGE Electronically Signed On 07-11-2024 07:16:34 CDT by Liu Sosa D.O.
[2024-07-11 03:19] VITALS: BP 131/105; PULSE 68; RESP 16; TEMP 36.7; O2SAT 100
[2024-07-11 03:38] LABS: Troponin I < 0.012 ng/mL (0.000-0.034)
[2024-07-11 05:13] VITALS: BP 151/100; PULSE 72; RESP 16; TEMP 36.7; O2SAT 98
[2024-07-11 05:25] LABS: Add Urine Microscopic? YES; Appearance Urine Cloudy (Clear); Bacteria Urine None Seen /hpf; Bilirubin Urine Negative (Negative); Blood Urine Negative (Negative); Color Urine Yellow (Yellow); Glucose Urine UA Negative (Negative); Ketones Urine Negative (Negative); Leukocyte Esterase Ur Negative LEU/UL (Negative); Nitrate Urine Negative (Negative); Non Pathogenic Casts 0-2; Protein Urine Negative (Negative); RBC Urine 0-2 /hpf (0-2); Specific Grav Ur > 1.045 (1.001-1.035); Squamous Epithelial Cell Urine None Seen /hpf (Few); WBC Urine 0-5 /hpf (0-3); pH Urine 7.5 (5.0-9.0)
== END 2024-07-11 06:09 | disposition home or self-care (01) ==
PROVIDERS: Emergency Provider Student in an Organized Health Care Education/Training Program; PCP Nurse Practitioner Family
DX: R07.9 Chest pain, unspecified (principal); D72.829 Elevated white blood cell count, unspecified; R74.01 Elevation of levels of liver transaminase levels; R74.8 Abnormal levels of other serum enzymes; I11.9 Hypertensive heart disease without heart failure; I25.2 Old myocardial infarction; Z87.891 Personal history of nicotine dependence; Z95.5 Presence of coronary angioplasty implant and graft; Z79.82 Long term (current) use of aspirin; Z79.899 Other long term (current) drug therapy; Z79.02 Long term (current) use of antithrombotics/antiplatelets; R93.41 Abnormal radiologic findings on diagnostic imaging of renal pelvis, ureter, or bladder; K76.9 Liver disease, unspecified; I45.10 Unspecified right bundle-branch block; R94.31 Abnormal electrocardiogram [ECG] [EKG]
CPT/HCPCS: 36415; 71045; 71260; 74177; 80053; 81001; 83690; 83880; 84484; 85025; 85610; 85730; 93005; 99284; A9270; Q9967

== ENCOUNTER 2024-09-15 14:21 | Outpatient (CLI) | payer OTHER, SELFPAY | END 2024-09-15 14:22 | disposition home or self-care (01) | LOC: ANHAUDIO 14:22 | PROVIDERS: PCP Otolaryngology; Visit Provider Otolaryngology | DX: J30.2 Other seasonal allergic rhinitis (principal); H90.3 Sensorineural hearing loss, bilateral; H61.23 Impacted cerumen, bilateral; H90.42 Sensorineural hearing loss, unilateral, left ear, with unrestricted hearing on the contralateral side | CPT/HCPCS: 92557; 92567 ==

== ENCOUNTER 2024-11-07 14:01 | Emergency (ER) | payer OTHER, SELFPAY ==
[2024-11-07] VITALS (14 sets, daily range): BP systolic 131–178; BP diastolic 91–110; PULSE 60–81; RESP 13–18; TEMP 36.4; O2SAT 97–99
--- NOTE | ~2024-11-07 | XR_ITS ---
EXAMINATION: XR chest 2V Exam Date/Time: 11/07/2024 14:48 CDT HISTORY: CP Comparison: 07/11/2024. RESULT: Lines, tubes, and devices: None. Lungs and pleura: Clear. Cardiomediastinal silhouette: Stable. Other: No acute osseous or upper abdominal finding. IMPRESSION: No acute cardiopulmonary process. Reviewed, dictated and finalized at location K.
--- NOTE | 2024-11-07 14:02 | ECG_ITS ---
Test Date: 2024-11-07 14:13:51 Measurements Intervals [place] Rate: 65 P: 9 [place]: 155 QRS: 29 QRSD: 91 T: 54 QT: 384 QTc: 399 Interpretive Statements SINUS RHYTHM INCOMPLETE RIGHT BUNDLE BRANCH BLOCK BORDERLINE ECG Compared to ECG 07/11/2024 03:17:52 NO SIGNIFICANT CHANGE Electronically Signed On 11-07-2024 14:53:06 CDT by Liu Sosa D.O.
[2024-11-07] MEDS: ASPIRIN 81 MG CHEWABLE TABLET 324 MG PO (14:24)
[2024-11-07 14:27] LABS: Hematocrit 43.5 % (42.0-52.0); Hemoglobin 14.9 g/dL (14.0-18.0); Immature Granulocyte Percent A 0.4 % (0-0.5); Lymphocytes Absolute Auto 1.65 K/mm3 (0.9-3.2); Mean Corpuscular HGB Conc 34.3 g/dl (32-36); Mean Corpuscular Hemoglobin 27.8 pg (26-34); Mean Corpuscular Volume 81.2 fl (80-100); Nucleated Red Blood Cells Absolute Auto 0.000 K/mm3 (0.0-0.012); Nucleated Red Blood Cells Perc 0.0 % (0.0-0.2); Platelet Count Result 282 k/mm3 (150-375); Red Blood Count 5.36 M/mm3 (4.6-6.20); White Blood Count 12.5 K/mm3 (4.5-10.0)
[2024-11-07 14:38] LABS: Alanine Aminotransferase 48 U/L (6-50); Albumin Level 4.7 g/dL (3.5-5.1); Alkaline Phosphatase 117 U/L (38-126); Anion Gap 9 mmol/L (4-12); Aspartate Amino Transferase 38 U/L (17-59); Bilirubin,Total 1.1 mg/dL (0.2-1.3); Blood Urea Nitrogen 14 mg/dL (9-20); Calcium 9.7 mg/dL (8.4-10.2); Carbon Dioxide 27 mmol/L (22-30); Chloride 98 mmol/L (98-107); Estimated CRCL calculation 89 ml/min; Estimated Glomerular Filt Rate > 60; Glucose 103 mg/dL (65-110); Lipase 105 U/L (23-300); Potassium 4.3 mmol/L (3.4-5.0); Sodium 134 mmol/L (137-145); Total Protein 7.5 g/dL (6.3-8.2)
--- NOTE | 2024-11-07 14:44 | ED_ITS ---
HPI - General Adult General Chief complaint: Chest Pain Stated complaint: Chest/arm pain x since this AM Time Seen by Provider: 11/07/24 14:10 History of Present Illness HPI narrative: 43-year-old male present to the emergency department for evaluation for bilateral chest tightness. Patient does have prior history of coronary disease. Patient did have recent follow-up with Cardiology and was told that he needed to have outpatient cardiac catheterization. This currently in the process of being scheduled. Patient states that he got the news on that he needed at the cardiac catheterization and patient began having increased chest chest tightness on Saturday. Patient states the pain has been constant. Patient does feel that some of this may be associated with anxiety. Patient declined any medications for pain control Related Data Home Medications ?Medication ?Instructions ?Recorded ?Confirmed ?Last Taken ?Type pantoprazole 40 mg tablet,delayed 40 mg PO QAM 09/02/24 Unknown History release Allergies Allergy/AdvReac Type Severity Reaction Status Date / Time bee venom protein (honey bee) Allergy Severe Anaphylaxis Verified 11/07/24 14:23 Review of Systems 2 Review of Systems: All systems reviewed & are unremarkable except as noted in HPI and below PMFSH Past Medical History Medical History On statin therapy due to risk of future cardiovascular event Cubital tunnel syndrome on left Left carpal tunnel syndrome Lower back pain Diastolic dysfunction without heart failure Echocardiogram August 2023 demonstrated grade 1 diastolic dysfunction EF of 50 55% with mid anterolateral wall hypokinesis Hypertension NSTEMI (non-ST elevated myocardial infarction) Hiatal hernia Surgical History Surgical History History of esophagogastroduodenoscopy (EGD) (06/01/22) Nonerosive reflux disease History of thumb surgery Titanium screw right thumb History of coronary artery stent placement 08/08/2023 acute complete occlusion of the mid ramus with 3 mm x 26 mm drug- eluting stent. 10/03/2023 with staged PCI of obtuse marginal with a 2.5 mm x 15 mm drug-eluting stent (Dr. Delphine Mota) Hx of appendectomy Family History Family History Sibling Diabetes mellitus Sibling Diabetes mellitus Mother Hypertension Father Hypertension Acute myocardial infarction <65yo Cerebrovascular accident Social History Social History Social History: He was for 20 years. He has been since July 2023. He and his raised 3 children his youngest child is 18 years old. 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 He smoked a half a pack of cigarettes for approximately 15 years but quit smoking in his mid 30s. He drinks a beer on occasion. Denies illicit substance use. Gets together routinely with brother for breakfast. Code status: Full code Surrogate decision maker: Mother Smoking packs per day: 0.5 Smoking cigarettes per day: 10.0 Years smoked: 15 Smoking pack-years: 7.50 Smoking status: Former smoker Tobacco type: cigarettes Smoking end date: 04/08/15 Alcohol intake: current Drinks per week: 2 Alcohol use details: beer Substance use: never Substance use type: does not use Other substance usage details: Rarely Do You Feel Safe in your Home?: Yes Lack of Transportation: No Lack of Food: Never True Current Housing: I Have Housing Concerned About Future Housing: No Difficulty Paying Gas/Electric Bills: No Difficulty Paying for Meds: No Currently Unemployed: No Education: High School Diploma/GED Difficulty w/ Childcare or Family Care: No Living arrangements: with family Spiritual care concerns: No Exam 2 Narrative: APPEARANCE: Well appearing, no pain, no distress, well-nourished. HEAD: normocephalic, atraumatic. EYES: PERRLA/EOMI, conjunctivae clear. NOSE: Normal no drainage EARS:TMS clear with good light reflex. THROAT: Pharynx clear, no exudate. NECK: Supple. No adenopathy, no masses. RESPIRATORY: Airway patent, respirations nonlabored. Clear to auscultation bilaterally, no rales, rhonchi, wheezing. CARDIOVASCULAR: Regular rate and rhythm without murmurs rubs or gallops. ABDOMINAL: Soft, nontender, nondistended, normal bowel sounds MUSCULOSKELETAL: Moves all extremities. Strength/ROM intact, No edema, No calf tenderness. NEURO: Alert. Cranial nerves II through XII intact. Grossly intact SKIN: Warm, dry. Normal Color Course Vital Signs Vital signs: Vital Signs Temperature 97.6 F 11/07/24 14:03 Pulse Rate 81 11/07/24 14:03 Respiratory Rate 16 11/07/24 14:03 Blood Pressure 178/110 H 11/07/24 14:03 Pulse Oximetry 98 11/07/24 14:03 Temperature 97.6 F 11/07/24 14:03 Pulse Rate 78 11/07/24 17:30 Respiratory Rate 16 11/07/24 17:30 Blood Pressure 136/91 H 11/07/24 17:30 Pulse Oximetry 99 11/07/24 17:30 Oxygen Delivery Room Air 11/07/24 14:23 Medical Decision Making MDM Narrative Medical decision making narrative: 43-year-old male presented to the emergency department for evaluation for bilateral chest wall tightness. Patient states the pain has been constant for the last 2 days. Patient is currently afebrile but does have a leukocytosis 12.5 a global 14.9. INR is 1.1. Patient's D-dimer is not elevated at less than 0.27. No acute abnormalities on his CMP patient had negative serial troponins both less than 0.012. EKGs showed no evidence of acute STEMI. Chest x-ray showed no acute cardiopulmonary abnormality. Low concern for ACS is the underlying etiology of his symptoms as the chest tightness has been constant for the 2 days. Patient was encouraged of close outpatient follow-up with Cardiology. Differential Diagnosis Differential Diagnosis: ACS, pneumonia, pneumothorax, anxiety, pulmonary embolism Vital Signs Vital Signs: Vital Signs Temperature 97.6 F 11/07/24 14:03 Pulse Rate 81 11/07/24 14:03 Respiratory Rate 16 11/07/24 14:03 Blood Pressure 178/110 H 11/07/24 14:03 Pulse Oximetry 98 11/07/24 14:03 Temperature 97.6 F 11/07/24 14:03 Pulse Rate 78 11/07/24 17:30 Respiratory Rate 16 11/07/24 17:30 Blood Pressure 136/91 H 11/07/24 17:30 Pulse Oximetry 99 11/07/24 17:30 Oxygen Delivery Room Air 11/07/24 14:23 Lab Data Lab results reviewed: Yes I reviewed the patient's lab results. 11/07/24 14:21 11/07/24 14:21 Labs: Lab Results 11/07/24 11/07/24 Range/Units 14:21 17:19 WBC 12.5 H (4.5-10.0) K/mm3 RBC 5.36 (4.6-6.20) M/mm3 Hgb 14.9 (14.0-18.0) g/dL Hct 43.5 (42.0-52.0) % MCV 81.2 (80-100) fl MCH 27.8 (26-34) pg MCHC 34.3 (32-36) g/dl RDW 12.5 (11.5-14.5) % Plt Count 282 (150-375) k/mm3 MPV 9.4 (7.4-10.4) fl Immature Gran % (Auto) 0.4 (0-0.5) % Neut % (Auto) 78.8 H (45.5-73.1) % Lymph % (Auto) 13.2 L (18.3-44.2) % [place] % (Auto) 6.7 (2.6-8.5) % Eos % (Auto) 0.6 (0-4.4) % Baso % (Auto) 0.3 (0.2-1.2) % Lymph # (Auto) 1.65 (0.9-3.2) K/mm3 [place] # (Auto) 0.8 H (0.1-0.6) K/mm3 Eos # (Auto) 0.1 (0-0.3) K/mm3 Baso # (Auto) 0.0 (0.0-0.1) K/mm3 Abs Immat Gran (auto) 0.05 H (0.00-0.031) K/mm3 Absolute Neuts (auto) 9.9 H (1.3-6.7) K/mm3 Absolute Nucleated RBC 0.000 (0.0-0.012) K/mm3 Nucleated RBC % 0.0 (0.0-0.2) % PT 14.3 (11.1-14.7) Seconds INR 1.1 APTT 31.8 (22.3-36.8) Seconds D-Dimer < 0.27 (<0.48) ug/mL Sodium 134 L (137-145) mmol/L Potassium 4.3 (3.4-5.0) mmol/L Chloride 98 (98-107) mmol/L Carbon Dioxide 27 (22-30) mmol/L Anion Gap 9 (4-12) mmol/L BUN 14 (9-20) mg/dL Creatinine 0.89 (0.7-1.3) mg/dL Estim Creat Clear Calc 89 ml/min Estimated GFR > 60 (59 - ) Glucose 103 (65-110) mg/dL Calcium 9.7 (8.4-10.2) mg/dL Total Bilirubin 1.1 (0.2-1.3) mg/dL AST 38 (17-59) U/L ALT 48 (6-50) U/L Alkaline Phosphatase 117 (38-126) U/L Troponin I < 0.012 < 0.012 (0.000-0.034) ng/mL Total Protein 7.5 (6.3-8.2) g/dL Albumin 4.7 (3.5-5.1) g/dL Lipase 105 (23-300) U/L Imaging Data Radiologist's impression: Impressions Chest X-Ray 11/07/24 15:14 IMPRESSION: No acute cardiopulmonary process. ECG Data EKG #1: EKG Interpretation: normal rate, sinus rhythm, no ectopy, non-specific ST changes, normal QRS, normal QT and NL axis Discharge Plan Discharge Clinical Impression: Atypical chest pain Patient Disposition: Home Condition: Stable Instructions: Antibiotic Form, Chest Wall Pain (ED) Additional Instructions: Have close follow-up with Cardiology as outpatient. If you have any worsening symptoms and please call or return to the emergency department. Patient Language: Libyan Prescriptions: No Action pantoprazole 40 mg tablet,delayed release (DR/EC) 40 mg PO QAM aspirin 81 mg Tablet,Delayed Release (Dr/Ec) 81 mg PO QAM Qty: 30 0RF atorvastatin 40 mg Tablet 80 mg PO DAILY Qty: 60 0RF metoprolol succinate 50 mg Tablet Extended Release 24 Hr 50 mg PO QAM Qty: 30 0RF losartan 25 mg Tablet 25 mg PO DAILY Qty: 30 0RF Brilinta 90 mg Tablet 90 mg PO Q12HR Qty: 60 0RF meloxicam 7.5 mg tablet See Rx Instructions .ROUTE .COMPLEX Qty: 30 1RF Dose Instruction: TAKE 1 TABLET BY MOUTH EVERY DAY Rx Instructions: TAKE 1 TABLET BY MOUTH EVERY DAY Follow-up/Referrals: Robbi Cummins M.D. [Primary Care Provider] - Quality HEART score for chest pain patients History: slightly suspicious ECG: normal Age: < or = to 45 years Risk factors: > or = to 3 risk factors of atherosclerotic disease Troponin: < or = to 1x normal limit Heart score: 2
[2024-11-07 14:47] LABS: INR 1.1; Partial Thromboplastin Time 31.8 Seconds (22.3-36.8); Prothrombin Time 14.3 Seconds (11.1-14.7)
[2024-11-07 14:50] LABS: Troponin I < 0.012 ng/mL (0.000-0.034)
--- NOTE | 2024-11-07 17:17 | ECG_ITS ---
Test Date: 2024-11-07 17:20:56 Measurements Intervals [place] Rate: 61 P: 2 [place]: 166 QRS: 25 QRSD: 90 T: 65 QT: 392 QTc: 397 Interpretive Statements SINUS RHYTHM INCOMPLETE RIGHT BUNDLE BRANCH BLOCK BORDERLINE ECG Compared to ECG 11/07/2024 14:13:51 NO SIGNIFICANT CHANGE Electronically Signed On 11-07-2024 18:30:54 CDT by Liu Sosa D.O.
[2024-11-07 17:55] LABS: Troponin I < 0.012 ng/mL (0.000-0.034)
== END 2024-11-07 18:26 | disposition home or self-care (01) ==
PROVIDERS: Emergency Provider Emergency Medicine; PCP Otolaryngology
DX: R07.89 Other chest pain (principal); I25.10 Atherosclerotic heart disease of native coronary artery without angina pectoris; I11.9 Hypertensive heart disease without heart failure; I25.2 Old myocardial infarction; K44.9 Diaphragmatic hernia without obstruction or gangrene; F41.9 Anxiety disorder, unspecified; Z95.5 Presence of coronary angioplasty implant and graft; Z87.891 Personal history of nicotine dependence; Z79.82 Long term (current) use of aspirin; Z79.899 Other long term (current) drug therapy; Z79.02 Long term (current) use of antithrombotics/antiplatelets; I45.10 Unspecified right bundle-branch block
CPT/HCPCS: 36415; 71046; 80053; 83690; 84484; 85025; 85380; 85610; 85730; 93005; 99284; A9270

== ENCOUNTER 2024-11-16 02:07 | Day surgery (SDC) | payer OTHER, SELFPAY ==
[2024-11-13 13:43] VITALS: BMI 28.3
[2024-11-16] VITALS (17 sets, daily range): BP systolic 109–139; BP diastolic 71–92; PULSE 60–79; RESP 12–22; TEMP 36.4–36.6; O2SAT 97–100; BMI 26.9
[2024-11-16 07:36] LABS: Hematocrit 41.7 % (42.0-52.0); Hemoglobin 14.0 g/dL (14.0-18.0); Immature Granulocyte Percent A 0.6 % (0-0.5); Lymphocytes Absolute Auto 1.95 K/mm3 (0.9-3.2); Mean Corpuscular HGB Conc 33.6 g/dl (32-36); Mean Corpuscular Hemoglobin 27.8 pg (26-34); Mean Corpuscular Volume 82.7 fl (80-100); Nucleated Red Blood Cells Absolute Auto 0.000 K/mm3 (0.0-0.012); Nucleated Red Blood Cells Perc 0.0 % (0.0-0.2); Platelet Count Result 257 k/mm3 (150-375); Red Blood Count 5.04 M/mm3 (4.6-6.20); White Blood Count 9.3 K/mm3 (4.5-10.0)
[2024-11-16 07:47] LABS: Anion Gap 8 mmol/L (4-12); Blood Urea Nitrogen 15 mg/dL (9-20); Calcium 9.2 mg/dL (8.4-10.2); Carbon Dioxide 27 mmol/L (22-30); Chloride 98 mmol/L (98-107); Estimated CRCL calculation 94 ml/min; Estimated Glomerular Filt Rate > 60; Glucose 109 mg/dL (65-110); Potassium 4.3 mmol/L (3.4-5.0); Sodium 133 mmol/L (137-145)
--- NOTE | 2024-11-16 08:42 | WPDHPUPDATE1 ---
History and Physical Update Update Date/Time: 11/16/24 08:42 History and Physical has been reviewed, including an updated exam of the patient. There are NO changes in the patient's condition. Risks, benefits, and alternatives have been discussed and questions answered. Patient agrees to proceed with procedure.
--- NOTE | 2024-11-16 08:43 | WPDMODSED ---
Moderate Sedation Note-Pt Data Patient Data Allergies Allergy/AdvReac Type Severity Reaction Status Date / Time bee venom protein (honey bee) Allergy Severe Anaphylaxis Verified 11/16/24 07:20 Home Medications ?Medication ?Instructions ?Recorded ?Confirmed ?Type aspirin 81 mg tablet,delayed 81 mg PO QAM #30 tabs 08/09/23 11/16/24 Rx release atorvastatin 40 mg tablet 80 mg (2 x 40 mg) PO DAILY #60 tabs 08/09/23 11/16/24 Rx losartan 25 mg tablet 25 mg PO DAILY #30 tabs 08/09/23 11/16/24 Rx metoprolol succinate 50 mg 50 mg PO QAM #30 tabs 08/09/23 11/16/24 Rx tablet,extended release 24 hr pantoprazole 40 mg tablet,delayed 40 mg PO QAM 09/02/24 11/16/24 History release meloxicam 7.5 mg tablet See Rx Instructions .Route 11/02/24 11/16/24 Rx .COMPLEX #30 tabs Sedation/Anesthesia: No previous sedation/anesthesia problems (including family history). [facility] Past Medical History Medical History On statin therapy due to risk of future cardiovascular event Cubital tunnel syndrome on left Left carpal tunnel syndrome Lower back pain Diastolic dysfunction without heart failure Echocardiogram August 2023 demonstrated grade 1 diastolic dysfunction EF of 50 55% with mid anterolateral wall hypokinesis Hypertension NSTEMI (non-ST elevated myocardial infarction) Hiatal hernia Surgical History Surgical History History of esophagogastroduodenoscopy (EGD) (06/01/22) Nonerosive reflux disease History of thumb surgery Titanium screw right thumb History of coronary artery stent placement 08/08/2023 acute complete occlusion of the mid ramus with 3 mm x 26 mm drug-eluting stent. 10/03/2023 with staged PCI of obtuse marginal with a 2.5 mm x 15 mm drug-eluting stent (Dr. Delphine Mota) Hx of appendectomy Family History Family History Sibling Diabetes mellitus Sibling Diabetes mellitus Mother Hypertension Father Hypertension Acute myocardial infarction <65yo Cerebrovascular accident Social History Social History Social History: He was for 20 years. He has been since July 2023. He and his raised 3 children his youngest child is 18 years old. 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 He smoked a half a pack of cigarettes for approximately 15 years but quit smoking in his mid 30s. He drinks a beer on occasion. Denies illicit substance use. Gets together routinely with brother for breakfast. Code status: Full code Surrogate decision maker: Mother Smoking packs per day: 0.5 Smoking cigarettes per day: 10.0 Years smoked: 15 Smoking pack-years: 7.50 Smoking status: Former smoker Tobacco type: cigarettes Smoking end date: 04/08/15 Alcohol intake: current Drinks per week: 2 Alcohol use details: beer Substance use: never Substance use type: does not use Other substance usage details: Rarely Do You Feel Safe in your Home?: Yes Lack of Transportation: No Lack of Food: Never True Current Housing: I Have Housing Concerned About Future Housing: No Difficulty Paying Gas/Electric Bills: No Difficulty Paying for Meds: No Currently Unemployed: No Education: High School Diploma/GED Difficulty w/ Childcare or Family Care: No Living arrangements: with family Additional living arrangements comments: Son Spiritual care concerns: No Mod Sed Physical Exam Physical Exam Pre Procedural Exam: Normal: Lungs, Heart Size, Heart Rate and Heart Rhythm Hours since solid foods: 12 Hours since liquid intake: 12 Mallampati Classification: class II Internal Medicine - PN: Obj Da Vital Signs Vital Signs: Vital Signs - 24 hr 11/16/24 07:23 Temperature 36.6 C Pulse Rate 68 Respiratory Rate 14 Blood Pressure 139/85 Pulse Oximetry 98 Oxygen Delivery Room Air Labs 11/16/24 07:29 11/16/24 07:29 Labs: Laboratory Results - last 24 hr 11/16/24 07:29 WBC 9.3 RBC 5.04 Hgb 14.0 Hct 41.7 L MCV 82.7 MCH 27.8 MCHC 33.6 RDW 12.6 Plt Count 257 MPV 9.5 Immature Gran % (Auto) 0.6 H Neut % (Auto) 68.1 Lymph % (Auto) 20.9 [place] % (Auto) 8.8 H Eos % (Auto) 1.0 Baso % (Auto) 0.6 Lymph # (Auto) 1.95 [place] # (Auto) 0.8 H Eos # (Auto) 0.1 Baso # (Auto) 0.1 Abs Immat Gran (auto) 0.06 H Absolute Neuts (auto) 6.4 Absolute Nucleated RBC 0.000 Nucleated RBC % 0.0 Sodium 133 L Potassium 4.3 Chloride 98 Carbon Dioxide 27 Anion Gap 8 BUN 15 Creatinine 0.84 Estim Creat Clear Calc 94 Estimated GFR > 60 Glucose 109 Calcium 9.2 ASA Classification/Sedation ASA Classification/Sedation ASA Class: III Emergent: No Risks: Risks, benefits and alternatives explained and patient/family accepted plan for sedation. Patient re-evaluated immediately prior to sedation.
--- NOTE | 2024-11-16 10:09 | WPDCARDPROC ---
Cardiac Cath Procedure Note Date of procedure:: 11/16/24 Performing physician:: CATHETERIZATION LABORATORY REPORT Procedure Date: 11/16/2024 Referring Physician: Dr. Mota Anesthesia: Versed and Fentanyl were ordered and given in my presence at 0908, procedure ended at 1002. Supervision of nurse, Duke Mohan monitored moderate sedation with 2mg Versed and 100mcg Fentanyl was provided for 54 minutes. Pre-op Diagnosis: Abnormal nuclear stress test Post-op Diagnosis: Abnormal nuclear stress test Procedure(s): Left heart catheterization with coronary angiography Access Site: Right radial artery Brief History and Clinical Indications: 43-year-old man with CAD status post PCI to occluded ramus with staged PCI to the OM was found to have chest discomfort for which a nuclear stress test was performed that was abnormal and now he is here for cardiac catheterization with possible PCI All risks, benefits and alternatives to left heart catheterization with or without percutaneous coronary intervention was discussed at length with the patient. Risk of complications including but not limited to bleeding, infection, arrhythmia, stroke, worsening kidney function, blood loss, groin hematoma, limb loss, emergency coronary artery bypass grafting, and even were discussed with the patient and all questions were answered. The patient understood and wished to proceed. 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 Findings: LEFT HEART CATHETERIZATION FINDINGS: 1. Left main: The left main coronary artery is widely patent without any significant obstructive disease. 2. Left anterior descending: The LAD and the diagonal branches have mild luminal irregularities without any significant obstructive angiographic disease. 3. Left circumflex: The left circumflex artery and the main marginal branches have mild luminal irregularities without any significant obstructive angiographic disease. Stent in OM branch is widely patent with no stenosis. 4. Ramus Intermedius: The ramus branch has a stent with 80% in-stent restenoses. 4. Right coronary artery: The RCA is a dominant vessel that is angiographically free of stenosis. 5. Left ventricle: A. End-diastolic pressure 20 mmHg. B. LV gram deferred. C. No significant gradient across aortic valve on catheter pullback. 6. Opening AO pressure 117/85 and closing AO pressure 91/62 Description of Procedure: Informed consent signed and placed in the chart. Patient transferred to clinical laboratory technologist room. Prepped and draped in usual sterile fashion. 2% lidocaine injected subcutaneously in right wrist area. 22-gauge venipuncture catheter used to access the right radial artery with the Seldinger technique. 6-FR slender sheath placed in right radial artery. Nitroglycerin 200mcg, Verapamil 2.5mg, and Heparin 5000U was given intraarterial through the sheath. J wire advanced under fluoroscopy 5F Ultra unable to engage and switched for a 5F JL3.5 diagnostic catheter which engaged Left Main Coronary Artery. 5F Ultra diagnostic catheter engaged Right Coronary Artery Multiple orthogonal angiogram obtained and reviewed 5F Ultra diagnostic catheter guided across aortic valve to obtain LVEDP, LV angiogram deferred. Procedure Description for PCI: Heparin was used for anticoagulation (ACT maintained above 250) Patient loaded with heparin at 70 units/kg. 6F EBU 3.5guide catheter was used to intubate the LMCA. 0.014 Runthrough coronary wire was passed in to the distal Ramus. IVUS was used for assessment and ISR was deemed likely secondary to neointimal hyperplasia vs neoatherosclerosis. The lesion was pre-dilated with a 2.5x15 mm balloon inflated to nominal pressures. A 3.0x22mm [place] Dolores KALLIE was successfully deployed into Ramus with an area of underexpansion noted on angiography. The stent was post-dilated with a 3.25x8mm NC balloon inflated to high NATHAN multiple times with excellent angiographic results. IVUS confirmed excellent results. Previous stent landed prior to an area of myocardial bridging. Intracoronary NTG was administered and all intracoronary equipment was removed under fluoroscopy. Follow-up angiograms showed an excellent result. Coronary wire and guide-catheter were removed Pre-procedure - ROOSEVELT 3 flow Post-procedure - ROOSEVELT 3 flow No angiographic complications identified. Assessment: Successful IVUS guided PCI to the Ramus ISR with 3.0 x 22mm [place] Dolores KALLIE; post dilated with 3.25 x 8mm NC to maximum pressure with excellent results. Post Operative Condition: Stable No significant blood loss Disposition: Home Plan: Consider fci DAPT. The above findings were discussed with the referring physician. Continue aggressive medical therapy and risk factor modification. Glenn Girard Interventional Cardiology
== END 2024-11-16 14:30 | disposition home or self-care (01) ==
PROVIDERS: PCP Nurse Practitioner Family; Visit Provider Internal Medicine
PROC: 4A023N7 Measurement of Cardiac Sampling and Pressure, Left Heart, Percutaneous Approach (ICD-10-PCS; CPT 93452; principal; 2024-11-16 08:30)
PROC: 027034Z Dilation of Coronary Artery, One Artery with Drug-eluting Intraluminal Device, Percutaneous Approach (ICD-10-PCS; CPT 92928; 2024-11-16 08:30)
DX: R94.39 Abnormal result of other cardiovascular function study (principal); I25.10 Atherosclerotic heart disease of native coronary artery without angina pectoris; E78.2 Mixed hyperlipidemia; I10 Essential (primary) hypertension; K21.9 Gastro-esophageal reflux disease without esophagitis; I25.2 Old myocardial infarction; G56.02 Carpal tunnel syndrome, left upper limb; Z79.82 Long term (current) use of aspirin; Z79.899 Other long term (current) drug therapy; Z98.890 Other specified postprocedural states; Z95.5 Presence of coronary angioplasty implant and graft; Z87.891 Personal history of nicotine dependence; Z87.19 Personal history of other diseases of the digestive system; Z82.49 Family history of ischemic heart disease and other diseases of the circulatory system
CPT/HCPCS: 36415; 80048; 85025; 92978; 93458; A9270; C1725; C1753; C1769; C1874; C1887; C1894; C9600; J1644; J2003; J2250; J2305; J3010; J7040